=== PATIENT | female | born 1940 | race Caucasian/White ===

== ENCOUNTER → 2024-06-13 15:56 | Outpatient (REF) | payer MEDICARE, OTHER, SELFPAY | LOC: RAD 15:56 | PROVIDERS: ATTENDING PHYSICIAN Student in an Organized Health Care Education/Training Program | DX: M79.671 Pain in right foot (principal) | CPT/HCPCS: 73630 ==

== ENCOUNTER → 2024-08-27 12:36 | Outpatient (REF) | payer MEDICARE, OTHER, SELFPAY | LOC: RCS 12:36 | PROVIDERS: ATTENDING PHYSICIAN Nurse Practitioner Gerontology; FAMILY PHYSICIAN Student in an Organized Health Care Education/Training Program | DX: I35.0 Nonrheumatic aortic (valve) stenosis (principal) | CPT/HCPCS: 93306 ==

== ENCOUNTER 2024-09-19 16:52 | Emergency (ER) | payer MEDICARE, OTHER, SELFPAY ==
[2024-09-19 16:53] VITALS: BMI 25.4
[2024-09-19 16:55] VITALS: BP 155/90
[2024-09-19 17:00] VITALS: BP 147/88
--- NOTE | 2024-09-19 17:18 | ED.GENMED ---
History of Present Illness
General
Chief Complaint: Fall
Source: patient and family (daughter)
Exam Limitations: none
Time Seen by Provider: 09/19/24 16:59
Nursing documentation reviewed up to this point in time: agreed with
History of Present Illness
History of Present Illness:
The patient is a pleasant 83-year-old female the past medical history of A-fib on Rajni, who lost her footing in the bathroom, fell backwards, and hit her head on the back of the door. There was no loss of consciousness. Patient remembers
falling. Family denies nausea and vomiting. They report she is at her normal baseline. They report that she has had cognitive decline for a long time but there have been no acute illnesses or concerns at they have. Her daughter is at the bedside
and reports that she is her evp business development and walked her to the bathroom but had been waiting outside for her to toilet herself and wash her hands. Patient complains of mild pain at the back of her head. She denies any significant pain. She denies
weakness and numbness of the arms and legs. Family reports that she was able to ambulate after the fall.
Past History
Past History
ED Past Medical History: Asthma, CAD, GERD, HTN, Hypercholesterolemia, NIDDM and Other (TIA's , Schatzki's ring)
ED Past Surgical History: Appendectomy, Cardiac (Stents X2) and Orthopedic (Rotatro cuff repair,)
Social History
Tobacco: Non-smoker
Alcohol: Daily (Wine 2 glasses)
Drug: None
Personal:
Living: with family
Employment: Other
Family History
Family History: Unable to obtain
Review of Systems
Review of Systems
Allergies reviewed?: Yes
Other source history: family
All Other Systems: ROS reviewed and negative except as documented in HPI and ROS
Constitutional: Reports no symptoms
EENT: Reports no symptoms
Respiratory: Reports no symptoms
Cardiac: Reports no symptoms
ABD/GI: Reports no symptoms
: Reports no symptoms
Musculoskeletal: Reports no symptoms
Skin: Reports no symptoms
Neurological: Reports headache
Endocrine: Reports no symptoms
Hematologic/Lymphatic: Reports no symptoms
Psychiatric: Reports no symptoms
Phy Exam
Physical Exam
Physical Exam:
Physical Exam
General: no apparent distress, not acutely ill. Fully awake, alert. Mild typical scalp tenderness. I cannot palpate any hematoma on scalp
Neck: supple. Nontender
Heart: s1/s2 regular rate and rhythm, no chest wall tenderness
Lungs: no acute respiratory distress. clear bilaterally. No vertebral spine tenderness
Abdomen: Soft, nontender
Neuro: alert and oriented. no focal neurological deficits
Skin: no rash
Psychiatric: well kept. interactive and cooperative
Extremities: no edema. no calf tenderness. negative homans. good distal pulses
Course
Orders/Labs/Results
Orders:
Orders
09/19/24 17:19
CT Cervical Spine W/o Iv Contr Urgent
Comment:
Reason For Exam: fall, pain at base of head
CT Head W/o Iv Contrast Urgent
Comment:
Reason For Exam: hit head
Vital Signs
Initial and Last Documented VS:
Initial Vital Signs
BP
155/90
09/19/24 16:55
Last Documented Vital Signs
Temp Pulse Resp BP Pulse Ox
98.3 F 89 18 147/88 93
09/19/24 16:57 09/19/24 16:57 09/19/24 16:57 09/19/24 17:00 09/19/24 17:15
MDM/Problems Addressed
Differential Diagnosis Includes:
Subdural hematoma, closed head injury, scalp contusion
MDM/Problems Addressed:
Patient presents with mild acute headache after a trip and fall and head strike
Chronic conditions affecting care:
Given patient has a history of A-fib is on blood thinners, she is at increased risk of stroke
Chronic conditions affecting care: Arrhythmia
Acute Exacerbation and/or Progression of Chronic Illness: Arrhythmia
*Pulse Oximetry
Patient hypoxic: no
*EKG
Interpreted by ED Provider?: NA
*Quality Improvement Manager Interpretation
Rate: Quality Improvement Manager- N/A
*Critical Care Note
Total Time (30-74mins, 75-104mins- exclusive of procedures): Not Applicable
Data Reviewed
Review of Other/Old Records Reveals: Discharge Summary (Discharge summary reviewed from hospitalist from 2019 when patient was admitted for chronic A-fib)
Source: patient and family ( and daughter who are at the bedside)
ED Attending Note
-
Portions of this chart may have been created with voice recognition software.� Occasional wrong word or��sound alike� substitutions may have occurred due to the inherent limitations of voice recognition software.
Discharge Plan
Departure
Prescriptions:
No Action
paroxetine HCl 20 MG tablet
20 mg PO DAILY
atorvastatin 40 MG tablet
80 mg PO HS
nitroglycerin 0.4 MG tablet, sublingual
0.4 mg sublingual [id number] PRN (Reason: chest pain)
pantoprazole 40 MG tablet,delayed release (DR/EC)
20 mg PO DAILY
calcium carbonate-vitamin D3 [Oyster Shell Calcium-Vit D3] 500 MG tablet
1 tab PO BID
apixaban [Eliquis] 5 MG tablet
5 mg PO BID Qty: 60 0RF
ipratropium-albuterol 3 ML solution for nebulization
3 ml inhalation R Q6HPRN PRN (Reason: sob/wheeze)
acetaminophen [Tylenol Extra Strength] 500 MG tablet
1,000 mg PO Q6HPRN PRN (Reason: mild pain)
polyvinyl alcohol-povidon(PF) [Refresh Classic (PF)] 10 DROPS dropperette
1 drops BOTH EYES DAILYPRN PRN (Reason: dry eyes/irritation)
metoprolol succinate 50 MG tablet extended release 24 hr
50 mg PO HS Qty: 30 0RF
thiamine HCl (vitamin B1) 100 MG tablet
100 mg PO BID 0RF
furosemide 80 MG tablet
80 mg PO DAILY Qty: 30 0RF
folic acid 1 MG tablet
1 mg PO DAILY 0RF
diltiazem HCl [Cardizem CD] 360 MG capsule,extended release 24hr
360 mg PO DAILY Qty: 30 0RF
budesonide [Pulmicort] 0.5 MG/2 ML suspension for nebulization
0.5 mg inhalation BID
albuterol sulfate 5 MG/ML solution for nebulization
2.5 mg inhalation BID
zhuaklib-lwt-jvcm-FA-vit K-lut [Centrum Silver Women] 1 EACH tablet
1 ea PO DAILY
ipratropium bromide 1 SPRAY spray,non-aerosol
2 spray intranasal TID
cefuroxime axetil 500 MG tablet
500 mg PO BID Qty: 20 0RF
Referrals:
Ivan Anton DO [Family Provider] -
Interventions
Interventions:
*Risk Screen - Suicide Last Done: 09/19/24 16:57
*General Assessment Last Done: 09/19/24 16:57
*Neglect/Abuse Screening Last Done: 09/19/24 16:57
ED- Fall Risk Assessment Last Done: 09/19/24 17:24
*ED COVID-19 Vaccine History Last Done: 09/19/24 16:57
ED-Musculoskeletal Assessment Last Done: 09/19/24 16:57
ED- Neurological Assessment Last Done: 09/19/24 16:57
ED-Skin Assessment Last Done: 09/19/24 16:57
Discharge Date and Time
Print Language: [place]
[2024-09-19 18:00] VITALS: BP 118/82
[2024-09-19 19:00] VITALS: BP 109/81
--- NOTE | 2024-09-19 20:54 | ED.GENMED ---
History of Present Illness
General
Chief Complaint: Fall
Source: patient and family
Exam Limitations: none
Time Seen by Provider: 09/19/24 16:59
Nursing documentation reviewed up to this point in time: agreed with
History of Present Illness
History of Present Illness:
Please see my note from same visit. I open this chart to document my disposition, which was discharging the patient
Past History
Past History
ED Past Medical History: Asthma, CAD, GERD, HTN, Hypercholesterolemia, NIDDM and Other (TIA's , Schatzki's ring)
ED Past Surgical History: Appendectomy, Cardiac (Stents X2) and Orthopedic (Rotatro cuff repair,)
Social History
Tobacco: Non-smoker
Alcohol: Daily (Wine 2 glasses)
Drug: None
Personal:
Living: with family
Employment: Other
Family History
Family History: Unable to obtain
Review of Systems
Review of Systems
Allergies reviewed?: Yes
All Other Systems: Not applicable
Phy Exam
Physical Exam
Physical Exam:
Very well and comfortable appearing
Course
Orders/Labs/Results
Orders:
Orders
09/19/24 17:19
CT Cervical Spine W/o Iv Contr Urgent
Comment:
Reason For Exam: fall, pain at base of head
CT Head W/o Iv Contrast Urgent
Comment:
Reason For Exam: hit head
Vital Signs
Initial and Last Documented VS:
Initial Vital Signs
BP
155/90
09/19/24 16:55
Last Documented Vital Signs
Temp Pulse Resp BP Pulse Ox
98.3 F 79 18 110/73 99
09/19/24 16:57 09/19/24 21:00 09/19/24 21:00 09/19/24 20:58 09/19/24 21:00
*Radiology
Radiology exam reviewed: radiology read reviewed
*Pulse Oximetry
Patient hypoxic: no
*Critical Care Note
Total Time (30-74mins, 75-104mins- exclusive of procedures): Not Applicable
Update Note
Update Note:
Patient remains comfortable and well for hours without any significant headache, nausea or dizziness.
ED Attending Note
-
Portions of this chart may have been created with voice recognition software.� Occasional wrong word or��sound alike� substitutions may have occurred due to the inherent limitations of voice recognition software.
Discharge Plan
Departure
Patient Disposition: Home (Routine Discharge)
Date of Disposition: 09/19/24
Time of Disposition: 20:53
Patient with high blood pressure during this ER visit?: No
Condition: Good
Covid-19: Not Applicable
Discharge Problem:
Closed head injury
Instructions: Head Injury in Adults (DC)
Prescriptions:
No Action
paroxetine HCl 20 MG tablet
20 mg PO DAILY
atorvastatin 40 MG tablet
80 mg PO HS
nitroglycerin 0.4 MG tablet, sublingual
0.4 mg sublingual [id number] PRN (Reason: chest pain)
pantoprazole 40 MG tablet,delayed release (DR/EC)
20 mg PO DAILY
calcium carbonate-vitamin D3 [Oyster Shell Calcium-Vit D3] 500 MG tablet
1 tab PO BID
apixaban [Eliquis] 5 MG tablet
5 mg PO BID Qty: 60 0RF
ipratropium-albuterol 3 ML solution for nebulization
3 ml inhalation R Q6HPRN PRN (Reason: sob/wheeze)
acetaminophen [Tylenol Extra Strength] 500 MG tablet
1,000 mg PO Q6HPRN PRN (Reason: mild pain)
polyvinyl alcohol-povidon(PF) [Refresh Classic (PF)] 10 DROPS dropperette
1 drops BOTH EYES DAILYPRN PRN (Reason: dry eyes/irritation)
metoprolol succinate 50 MG tablet extended release 24 hr
50 mg PO HS Qty: 30 0RF
thiamine HCl (vitamin B1) 100 MG tablet
100 mg PO BID 0RF
furosemide 80 MG tablet
80 mg PO DAILY Qty: 30 0RF
folic acid 1 MG tablet
1 mg PO DAILY 0RF
diltiazem HCl [Cardizem CD] 360 MG capsule,extended release 24hr
360 mg PO DAILY Qty: 30 0RF
budesonide [Pulmicort] 0.5 MG/2 ML suspension for nebulization
0.5 mg inhalation BID
albuterol sulfate 5 MG/ML solution for nebulization
2.5 mg inhalation BID
mwpxpumc-qnc-lhvi-FA-vit K-lut [Centrum Silver Women] 1 EACH tablet
1 ea PO DAILY
ipratropium bromide 1 SPRAY spray,non-aerosol
2 spray intranasal TID
cefuroxime axetil 500 MG tablet
500 mg PO BID Qty: 20 0RF
Referrals:
Ivan Anton DO [Family Provider] -
Activity Restrictions/Additional Instructions:
Chloe can sleep tonight because it has been many hours since she hit her head. Return for any severe headache or vomiting.
Interventions
Interventions:
*Risk Screen - Suicide Last Done: 09/19/24 16:57
*General Assessment Last Done: 09/19/24 16:57
*Neglect/Abuse Screening Last Done: 09/19/24 16:57
ED- Fall Risk Assessment Last Done: 09/19/24 17:24
*ED COVID-19 Vaccine History Last Done: 09/19/24 16:57
*Nursing Disposition Last Done: 09/19/24 21:05
ED-Musculoskeletal Assessment Last Done: 09/19/24 16:57
ED- Neurological Assessment Last Done: 09/19/24 16:57
ED-Skin Assessment Last Done: 09/19/24 16:57
Discharge Date and Time
Discharge Date/Time: 09/19/24 21:06
Print Language: CROATIAN
[2024-09-19 20:58] VITALS: BP 110/73
== END 2024-09-19 21:06 | disposition home or self-care (01) ==
LOC: EMR 16:52
PROVIDERS: EMERGENCY PHYSICIAN Emergency Medicine; FAMILY PHYSICIAN Student in an Organized Health Care Education/Training Program
DX: S09.90XA Unspecified injury of head, initial encounter (principal); W01.0XXA Fall on same level from slipping, tripping and stumbling without subsequent striking against object, initial encounter; I48.91 Unspecified atrial fibrillation; Z79.01 Long term (current) use of anticoagulants
CPT/HCPCS: 99284; 70450; 72125

== ENCOUNTER → 2024-10-08 11:14 | Outpatient (REF) | payer MEDICARE, OTHER, SELFPAY | LOC: RAD 11:14 | PROVIDERS: ATTENDING PHYSICIAN Student in an Organized Health Care Education/Training Program | DX: R07.81 Pleurodynia (principal) | CPT/HCPCS: 71046 ==

== ENCOUNTER 2024-11-11 22:15 | Inpatient (IN) | payer MEDICARE, OTHER, SELFPAY ==
[2024-11-11] VITALS (16 sets, daily range): BP systolic 100–148; BP diastolic 52–107; BMI 20.5
--- NOTE | 2024-11-11 16:13 | ED.GENMED ---
History of Present Illness
General
Chief Complaint: Esophageal Problem
Source: patient and family
Exam Limitations: none
Time Seen by Provider: 11/11/24 16:06
History of Present Illness
History of Present Illness:
84-year-old female complaining of a foreign body sensation in her throat x 1.5 days. Has not been able to drink liquids or solids since then. Spitting saliva. No pain. No shortness of breath. History of same. Typically passes on its own.
Past History
Past History
ED Past Medical History: Asthma, CAD, GERD, HTN, Hypercholesterolemia, NIDDM and Other (TIA's , Schatzki's ring)
ED Past Surgical History: Appendectomy, Cardiac (Stents X2) and Orthopedic (Rotatro cuff repair,)
Social History
Tobacco: Non-smoker
Alcohol: Daily (Wine 2 glasses)
Drug: None
Personal:
Living: with family
Employment: Other
Family History
Family History: Unable to obtain
Review of Systems
Review of Systems
All Other Systems: Not applicable
Constitutional: Denies fever
Respiratory: Reports no symptoms
Cardiac: Reports no symptoms
Phy Exam
Physical Exam
Physical Exam:
GENERAL: Alert and oriented in no apparent distress
EYE: Orbits normal.
NECK: Supple. No drooling or stridor. Speech normal.
CARDIAC: Mildly irregular
LUNGS: Clear breath sounds,normal
ABDOMEN: Soft, without focal tenderness or distention
NEUROLOGICAL: Alert and oriented , grossly non-focal
SKIN: Warm and dry, no rash or lesion, no discoloration, skin intact.
MUSCULOSKELETAL: No edema,no deformity.Good color
PSYCH: Normal and appropriate interaction.
Course
Orders/Labs/Results
Orders:
Orders
11/11/24 16:12
IV Insert/Care/Rem.- Treatment PRN
0.9% Sodium Chloride 500 ml [Nss] 500 ml IV BOLUS
11/11/24 16:18
Glucagon [GlucaGen] 1 mg IV NOW STA
11/11/24 17:59
Dexamethasone Sod Phosphate [Decadron] 20 mg .ROUTE .STK-MED ONE
Lidocaine HCl/Pf [Xylocaine-Mpf 1% Vial] 50 mg .ROUTE .STK-MED ONE
Ondansetron Injectable [Zofran] 4 mg .ROUTE .STK-MED ONE
Propofol [Diprivan] 20 ml .ROUTE .STK-MED
Rocuronium Escalon [Rocuronium] 50 mg .ROUTE .STK-MED ONE
Sugammadex Sodium [Bridion] 200 mg .ROUTE .STK-MED ONE
11/11/24 18:00
Phenylephrine HCl/0.9% NaCl [Gus-Synephrine] 1,000 mcg .ROUTE .STK-MED ONE
Succinylcholine Chloride [Succinylcholine] 200 mg .ROUTE .STK-MED ONE
11/11/24 18:19
NORepinephrine 4 MG/250 ML [Levophed] 4 mg in 250 ml .ROUTE .STK-MED
11/11/24 18:51
Esmolol [Brevibloc] 100 mg .ROUTE .STK-MED ONE
11/11/24 16:12
11/11/24 16:12
Vital Signs
Initial and Last Documented VS:
Initial Vital Signs
Temp Pulse Resp BP Pulse Ox
97.7 F 79 18 114/57 96
11/11/24 13:33 11/11/24 13:33 11/11/24 13:33 11/11/24 13:33 11/11/24 13:33
Last Documented Vital Signs
Temp Pulse Resp BP Pulse Ox
99.2 F 121 14 116/59 99
11/11/24 19:18 11/11/24 20:00 11/11/24 20:00 11/11/24 20:00 11/11/24 20:00
MDM/Problems Addressed
Differential Diagnosis Includes:
Patient describing esophageal foreign body. Does not appear in any distress but does have a vomit bag where she is spitting her saliva while in the waiting room. GI consulted
*Critical Care Note
Total Time (30-74mins, 75-104mins- exclusive of procedures): Not Applicable
Data Reviewed
Review of Other/Old Records Reveals: Labs, Records and Testing
ED Attending Note
-
Portions of this chart may have been created with voice recognition software.� Occasional wrong word or��sound alike� substitutions may have occurred due to the inherent limitations of voice recognition software.
Discharge Plan
Departure
Patient Disposition: Admit
Date of Disposition: 11/11/24
Time of Disposition: 18:06
Presentation/result/management discussed w/ accepting MD/DO: Gastroenterology
Discharge Problem:
Esophageal foreign body
Interventions
Interventions:
*Risk Screen - Suicide Last Done: 11/11/24 13:33
*General Assessment Last Done: 11/11/24 13:33
*Neglect/Abuse Screening Last Done: 11/11/24 13:33
ED- Fall Risk Assessment Last Done: 11/11/24 17:41
*ED COVID-19 Vaccine History Last Done: 11/11/24 17:41
*Nursing Disposition Last Done: 11/11/24 17:41
EA-Diotav-Zuslgtsmkl Assessment Last Done: 11/11/24 17:41
ED-EENT Assessment Last Done: 11/11/24 17:41
Discharge Date and Time
Discharge Date/Time: 11/11/24 19:04
[2024-11-11] MEDS: NSS 500 IV (17:11)
[2024-11-11] MEDS: GlucaGen 1 MG IV (17:12)
--- NOTE | 2024-11-11 19:04 | CON.GI ---
Consultation
-
Date/Time Consultation Requested: 11/11/24 5:00pm
Date/Time Consultation Performed: 11/11/24 7:00 pm
Requesting Provider: Oscar Hendrix
Performing Provider: Steven Chang
Reason for Consultation: Food impaction
Medical History
Chief Complaint / HPI
Chief Complaint: Food impaction
History of Present Illness:
84yo female presents after eating chicken nuggets several days ago. She has been spitting saliva and unable to eat since then. Her daughter tried mashed potatoes, apple sauce. She has history of Schatzki's ring that was dilated, last in 2013. I
recently saw her as televisit to discuss her swallowing problems. She has been eating puree food and has spit up meat and bread. I discussed repeat EGD for dilation but she was concerned about her anesthesia risk given her heart disease. We
decided to continue puree diet and nutritional supplements.
Past Medical History
Past Medical History: Arrhythmias (afib), CHF, HTN and Valvular Disease (severe )
Past Surgical History: Appendectomy and Cardiac (stent)
Social History
Tobacco: Non-Smoker
Alcohol: None
Family History
Family History: Reviewed & Not Pertinent
Allergies / Home Medications
Allergy/AdvReac Type Severity Reaction Status Date / Time
cat dander Allergy ITCHY EYES Verified 09/21/22 11:56
Sulfa (Sulfonamide Allergy Rash Verified 09/21/22 11:56
Antibiotics)
sulfisoxazole Allergy Rash Verified 09/21/22 11:56
trimethoprim Allergy Rash Verified 09/21/22 11:56
HAYFEVER Allergy Itching Uncoded 09/21/22 11:56
�Medication �Instructions �Recorded
paroxetine HCl 20 mg tablet 20 mg PO DAILY Mental 07/27/10
Health/Anxiety
atorvastatin 40 mg tablet 80 mg PO HS High cholesterol 05/31/12
nitroglycerin 0.4 mg sublingual 0.4 mg sublingual [id number] PRN 05/29/17
tablet chest pain
calcium 500 mg (as 1 tab PO BID Supplement 06/13/18
carbonate)-vitamin D3 5 mcg (200
unit) tablet (Oyster Shell
Calcium-Vitamin D3)
pantoprazole 40 mg tablet,delayed 20 mg PO DAILY Gastrointestinal 06/13/18
release issue
apixaban 5 mg tablet (Eliquis) 5 mg PO BID ##60 06/19/18
acetaminophen 500 mg tablet 1,000 mg PO Q6HPRN PRN mild pain 10/28/19
(Tylenol Extra Strength)
ipratropium 0.5 mg-albuterol 3 mg 3 ml inhalation R Q6HPRN PRN 10/28/19
(2.5 mg base)/3 mL nebulization sob/wheeze
soln
polyvinyl alcohol-povidone (PF) 1 drops BOTH EYES DAILYPRN PRN dry 10/28/19
1.4 %-0.6 % eye drops in a eyes/irritation
dropperette (Refresh Classic (PF))
diltiazem HCl 360 mg 360 mg PO DAILY ##30 11/09/19
capsule,extended release 24 hr
(Cardizem CD)
folic acid 1 mg tablet 1 mg PO DAILY 11/09/19
furosemide 80 mg tablet 80 mg PO DAILY #30 tabs 11/09/19
metoprolol succinate 50 mg 50 mg PO HS #30 tabs 11/09/19
tablet,extended release 24 hr
thiamine HCl (vitamin B1) 100 mg 100 mg PO BID 11/09/19
tablet
albuterol sulfate 5 mg/mL(0.5 %) 2.5 mg inhalation BID 09/03/20
solution for nebulization Lung/breathing issues
budesonide 0.5 mg/2 mL suspension 0.5 mg inhalation BID 09/03/20
for nebulization (Pulmicort) Lung/breathing issues
bguzwfzt-jrrh-tila 8 mg-folic 400 1 ea PO DAILY Supplement 09/03/20
mcg-K 50 mcg-lutein 300 mcg tablet
(Centrum Silver Women)
ipratropium bromide 42 mcg (0.06 2 spray intranasal TID Allergies 09/04/20
%) nasal spray
cefuroxime axetil 500 mg tablet 500 mg PO BID #20 tabs 09/06/20
Review of Systems
-
All other systems: A 12 pt ROS was Negative except as stated above in HPI
Vital Signs
Temp Pulse Resp BP Pulse Ox
97.6 F 86 16 112/52 95
11/11/24 16:00 11/11/24 16:00 11/11/24 16:00 11/11/24 16:00 11/11/24 16:00
Physical Exam
Exam
General: Other (spitting into emesis bag)
HEENT: Normocephalic and Atraumatic
Respiratory: Non Labored Respirations
GI: Soft and Non Tender
Skin: Warm and Dry
Psych: Calm
Results
Diagnostic Image Results:
Prior GI Procedures:
EGD:
Colonoscopy:
Assessment / Plan
-
Impression:
Food impaction
Afib on Eliquis, took dose today
Severe
Hx schatzki's ring
CAD
Recommendations:
EGD to remove food impaction
Given recent Eliquis, I will not dilate her esophagus
-
-
Thank you for consultation and allowing me to participate in the patient's care. Please call the storage management consultant GI physician during the after hours with any questions or concerns.
--- NOTE | 2024-11-11 21:35 | W.PN.UPDATE ---
Update Note
Progress Note Update
CBC patient seen in conjunction with MAIDA. I concur with the history and physical. I agree with the assessment and plan unless stated otherwise.
This is an 84-year-old female with past medical history significant for permanent atrial fibrillation on anticoagulation, aortic stenosis, CHF with preserved EF, COPD, GERD, hypertension presents to the emergency department with impacted esophageal
bolus and had a EGD status post removal of food impaction. During EGD the patient went into more rapid atrial fibrillation. Giving a small dose of esmolol in the PACU without much improvement. She is currently running at around 120s.
She denies any sensation of palpitations chest pain or shortness of breath. She reported that she took her usual medications this morning prior to coming to the emergency department.
When I saw her she was afebrile, blood pressure was 116/59 with a pulse of 121 satting 99% on 2 L. ECG with A-fib in the 120s. No labs pending at this time.
Request to monitor the patient overnight and to obtain some rate control.
Assessment and plan
Uncontrolled atrial fibrillation in patient with permanent A-fib on metoprolol and Cardizem, has aortic stenosis as well as CHF with preserved EF.
Admit to IVU
Start low-dose Cardizem drip and titrate to maintain heart rate less than 110
Continue Eliquis
Continue metoprolol succinate
Check routine labs
Cardiology consult
Code status - full code
--- NOTE | 2024-11-11 22:19 | PTCARENOTE ---
Pt's A line removed as per previous RN. Pressure applied x 5mins, no signs of bleeding. dressing gauge and tape. pt tolerated well.
[2024-11-11] MEDS: CARDIZEM 125 IV (22:59)
[2024-11-11 23:06] LABS: Glucose - Point of Care 114 mg/dl (70-99)
[2024-11-12] VITALS (19 sets, daily range): BP systolic 107–161; BP diastolic 56–111; PULSE 41–136; O2SAT 95–96; BMI 20.5
--- NOTE | 2024-11-12 01:33 | PTCARENOTE ---
Pt rec'd from GI lab without tele monitor. Pt placed on IVU's telemetry with afib noted rates 90-120. Cardizem gtt started shortly after arrival at
5 mg /hr. Drip increased to 10 mg at 0010 after heart rate continued low 100's,afib. Lungs clear on O2 at 2 lit n/c. which pt daughter states she uses at home. Pt also with hx of sleep apnea. pt's daughter states her Mom will only use cpap for
short period then wants it removed.
bed alarm activated after daughter states her Mom has had recent fall with rib fx and 'owns'. Pt upon arrival to floor is cooperative,calm.
--- NOTE | 2024-11-12 01:40 | PTCARENOTE ---
Two other things to note per daughter:
Pt has had problems getting Cardizem capsule down since it can't be crushed. Shes not sure if she is getting med every time. Also daughter states she holds pt's Lopressor if b/p is not above 135 otherwise she notes that her b/p will drop.
[2024-11-12 06:17] LABS: ALT (SGPT) 19 U/L (0-35); AST (SGOT) 24 U/L (14-36); Albumin 3.4 g/dl (3.5-5.0); Alkaline Phosphatase 124 U/L (38-126); Blood Urea Nitrogen 20 mg/dl (7-17); Calcium 9.2 mg/dl (8.4-10.2); Carbon Dioxide 32 mmol/L (22-30); Chloride 101 mmol/L (98-107); Estimated Creatinine Clearance 60 ml/min; Glucose 143 mg/dl (70-99); Magnesium 2.1 mg/dl (1.6-2.3); Potassium 3.8 mmol/L (3.5-5.1); Sodium 145 mmol/L (135-145); Total Protein 6.1 g/dl (6.3-8.2); eGFR > 60.00
[2024-11-12 06:19] LABS: % Basophils 0.2 % (0-2); % Immature Granulocytes 0.6 % (0-0.5); % Lymphocytes 13.4 % (20.5-51.1); % Monocytes 4.5 % (1.7-9.3); % Neutrophils 81.3 % (42.2-75.2); Absolute Lymphocytes 0.9 10^3/uL (1.2-3.4); Absolute Monocytes 0.3 10^3/uL (0.1-0.6); Absolute Neutrophils 5.2 10^3/uL (1.4-6.5); Hemoglobin 12.6 g/dL (12.0-16.0); Mean Corp Hgb Conc. 32.3 g/dL (33.0-37.0); Mean Corpuscular Hgb 34.3 pg (27.0-31.0); Mean Corpuscular Volume 106.3 fL (81.0-99.0); Mean Platelet Volume 9.8 fL (7.4-10.4); Nucleated Red Blood Cells % 0 %; Platelet Count 352 10^3/uL (130-400); Red Blood Cell Count 3.67 10^6/uL (4.20-5.40); Red Cell Dist. Width 15.6 % (11.5-14.5); White Blood Cell Count 6.4 10^3/uL (4.8-10.8)
[2024-11-12 07:08] LABS: TSH 0.42 uIU/ml (0.47-4.68)
--- NOTE | 2024-11-12 07:48 | CON.CAR ---
Addendum entered and electronically signed by Hector Rendon MD 11/12/24 11:09:
Patient seen and examined in collaboration with ACCOUNTS RECEIVABLE PROCESSOR; agree with below. 84-year-old female with coronary artery disease, permanent atrial fibrillation (on Eliquis), chronic HFpEF, severe aortic stenosis, moderate mitral stenosis, hypertension, and
dyslipidemia who developed atrial fibrillation with RVR during EGD for removal of food impaction.
-Patient was placed on a Cardizem drip; transition to PO rate-controlling medications that can be crushed.
-Recommend metoprolol tartrate 12.5 mg PO BID and Cardizem 60 mg PO QID.
-personnel monitor; will follow.
Original Note:
Consultation
Consultation Request
Date/Time Consultation Requested: 11/11/2024 22:45
Date/Time Consultation Performed: 11/12/2024 07:45
Requesting Provider: MAIDA Peralta
Performing Provider: MAIDA Grijalva for Dr. Rendon
Reason for Consultation: Atrial fibrillation with RVR
Medical History
-
Chief Complaint: Unable to swallow
History of Present Illness:
Chloe Tirado is an 84 year old female (known to Dr. Jorge, her primary entry level account representative) with coronary artery disease (RCA '05 & LAD '12), permanent atrial fibrillation, CVA (2018), HFpEF, hypertension, severe aortic stenosis, moderate mitral
stenosis, and dyslipidemia presents with impacted esophageal bolus. She complained of the sensation of food being stuck in her throat for more than 24 hours. She was unable to swallow anything including saliva. She had an EGD for removal of her
food impaction. During her procedure, she went into atrial fibrillation with rapid ventricular response. She was given a dose of esmolol in PACU without significant improvement in her heart rate. She was started on a diltiazem drip.
Past Medical History
Past Medical History: Arrhythmias (permanent atrial fibrillation [on apixaban]), CAD, CHF, CVA, GERD, HTN, NIDDM and Valvular Disease (Severe aortic stenosis, moderate mitral stenosis)
Past Surgical History: Appendectomy, Gynecological, Orthopedic and Tonsilectomy
Social History
Tobacco: Non-Smoker
Drug: None
Employment: Retired
Family History
Family History: Reviewed & Not Pertinent
Allergies / Home Medications
Allergy/AdvReac Type Severity Reaction Status Date / Time
cat dander Allergy ITCHY EYES Verified 09/21/22 11:56
house dust Allergy ITCHING/SNE Verified 11/11/24 22:22
EZING
mold Allergy ITCHING/SNE Verified 11/11/24 22:22
EZING
pollen extracts Allergy HAYFEVER-IT Verified 11/11/24 22:13
ALLISON
Sulfa (Sulfonamide Allergy Rash Verified 09/21/22 11:56
Antibiotics)
sulfisoxazole Allergy Rash Verified 09/21/22 11:56
trimethoprim Allergy Rash Verified 09/21/22 11:56
�Medication �Instructions �Recorded �Confirmed �Type
paroxetine HCl 20 mg tablet 20 mg PO DAILY Mental 07/27/10 11/11/24 History
Health/Anxiety
atorvastatin 40 mg tablet 80 mg PO HS High cholesterol 05/31/12 11/11/24 History
nitroglycerin 0.4 mg sublingual 0.4 mg sublingual [id number] PRN 05/29/17 11/11/24 History
tablet chest pain
calcium 500 mg (as 1 tab PO BID Supplement 06/13/18 11/11/24 History
carbonate)-vitamin D3 5 mcg (200
unit) tablet (Oyster Shell
Calcium-Vitamin D3)
pantoprazole 40 mg tablet,delayed 20 mg PO DAILY Gastrointestinal 06/13/18 11/11/24 History
release issue
acetaminophen 500 mg tablet 1,000 mg PO Q6HPRN PRN mild pain 10/28/19 11/11/24 History
(Tylenol Extra Strength)
ipratropium 0.5 mg-albuterol 3 mg 3 ml inhalation R Q6HPRN PRN 10/28/19 11/11/24 History
(2.5 mg base)/3 mL nebulization sob/wheeze
soln
polyvinyl alcohol-povidone (PF) 1 drops BOTH EYES DAILYPRN PRN dry 10/28/19 11/11/24 History
1.4 %-0.6 % eye drops in a eyes/irritation
dropperette (Refresh Classic (PF))
diltiazem HCl 360 mg 360 mg PO DAILY ##30 11/09/19 11/11/24 Rx
capsule,extended release 24 hr
(Cardizem CD)
folic acid 1 mg tablet 1 mg PO DAILY 11/09/19 11/11/24 Rx
furosemide 80 mg tablet 80 mg PO DAILY #30 tabs 11/09/19 11/11/24 Rx
albuterol sulfate 5 mg/mL(0.5 %) 2.5 mg inhalation BID 09/03/20 11/11/24 History
solution for nebulization Lung/breathing issues
budesonide 0.5 mg/2 mL suspension 0.5 mg inhalation BID 09/03/20 11/11/24 History
for nebulization (Pulmicort) Lung/breathing issues
wvemnuew-rakv-lxpf 8 mg-folic 400 1 ea PO DAILY Supplement 09/03/20 11/11/24 History
mcg-K 50 mcg-lutein 300 mcg tablet
(Centrum Silver Women)
ipratropium bromide 42 mcg (0.06 2 spray intranasal TID Allergies 09/04/20 11/11/24 History
%) nasal spray
apixaban 5 mg tablet (Eliquis) 2.5 mg PO BID 11/11/24 11/11/24 History
metformin 750 mg tablet,extended 750 mg PO DAILY 11/11/24 11/11/24 History
release 24 hr
metoprolol succinate 25 mg 25 mg PO DAILY 11/11/24 11/11/24 History
tablet,extended release 24 hr
Review of Systems
-
History Source: Patient
All other systems: Negative unless noted
Constitutional: No Symptoms
EENT: Sore Throat and Other (Difficulty swallowing)
Respiratory: No Symptoms
Cardiac: No Symptoms
Abdomen/GI: No Symptoms
: No Symptoms
Musculoskeletal: No Symptoms
Skin: No Symptoms
Neurological: No Symptoms
Endocrine: No Symptoms
Hematologic/Lymphatic: No Symptoms
Physical Exam
Vital Signs
Temp Pulse Resp BP Pulse Ox
98.0 F 64 18 140/68 96
11/11/24 22:56 11/12/24 05:45 11/11/24 22:56 11/12/24 04:00 11/11/24 22:56
Lab Results
11/12/24 05:14
11/12/24 05:14
Physical Exam
General: Well Developed, Well Nourished and No Apparent Distress
HEENT: Normocephalic, Anicteric and Moist Mucous Membranes
Respiratory: Clear and Non Labored Respirations
Cardiac: S1/S2, Irregular Rhythm and Murmur (IV/ SRINI)
Breast: Deferred by me
GI: Non Tender, Non Distended and Normal Bowel Sounds
Rectal: Deferred by Provider
Genito-urinary: No Costovertebral Tender
Musculoskeletal: No Clubbing, No Cyanosis and No Edema
Skin: Warm and Dry
Neuro: Alert
Hematologic/Lymphatic: No Lymphadenopathy
Psych: Calm
Impression / Plan
-
IMPRESSION/PLAN: 84F with coronary artery disease (RCA '05 & LAD '12), permanent atrial fibrillation, CVA (2018), HFpEF, hypertension, severe aortic stenosis, moderate mitral stenosis, and dyslipidemia presents with impacted esophageal bolus.
Outpatient entry level account representative: Dr. Jorge
Atrial fibrillation with rapid ventricular response
-Rates improved on diltiazem at 5 mg/hr, continue given her difficulty swallowing
-Will transition to oral medications when cleared by GI
-Her family crushes her medications at home, metoprolol succinate and Cardizem CD should not be crushed
-Her atrial fibrillation is permanent, no plans to restore sinus rhythm
-Oral Anticoagulation: Apixaban 2.5 mg twice daily (age 84, weight <60 kg)
-[id number]: score 8 (Heart failure, age 75 or more, Diabetes Mellitus, prior Stroke/TIA, Vascular disease, female gender)
Food impaction, lower third of esophagus, successful removal 11/11/2024
-She reports her throat is still sore and she is having difficulty swallowing, per GI
Coronary artery disease
-Stable with out chest pain
-On single agent apixaban
HFpEF, chronic
-Stable without shortness of breath
-She does not appear volume overloaded, continue medical management
Moderate mitral stenosis with a mean gradient of 9 mmHg.
Severe aortic stenosis (peak 61 mmHg, mean 39 mmHg, DI 0.2, BERENICE 0.6 cmsq), she declined further evaluation in the outpatient setting
Mild aortic regurgitation.
Mild to moderate tricuspid regurgitation.
NIDDM, per primary
--- NOTE | 2024-11-12 08:28 | W.PN.GI.CBS2 ---
Today's Communication / Plan
-
Rate controlled on cardizem gtt overnight
Food impaction removed during EGD yesterday
She probably wasn't getting her cardizem capsule last couple days, per daughter
OK to resume puree diet
I spoke to daughter. She wishes to see how she does on puree diet avoiding meat completely. If having problems still, told her to call to set up OP EGD for dilation of esophagus, which she has had in the past
Will sign off. Please call if needed
Assessment / Plan
-
Impression:
Food impaction
Afib on Eliquis. RVR during EGD to remove food impaction
Severe
Hx schatzki's ring
CAD
Subjective
Subjective
Date of Service: November 12, 2024
Sleeping comfortably in bed. no complaints
Objective
Data Reviewed
Laboratory Data:
Laboratory Results
11/12/24 05:14
11/12/24 05:14
Laboratory Results
Magnesium 2.1 mg/dl (1.6-2.3) 11/12/24 05:14
Total Bilirubin 1.0 mg/dl (0.2-1.3) 11/12/24 05:14
AST 24 U/L (14-36) 11/12/24 05:14
ALT 19 U/L (0-35) 11/12/24 05:14
Alkaline Phosphatase 124 U/L (38-126) 11/12/24 05:14
Vital Signs and I&O:
Vital Signs
Temp Pulse Resp BP Pulse Ox
97.2 F 64 20 140/68 99
11/12/24 08:08 11/12/24 05:45 11/12/24 08:08 11/12/24 04:00 11/12/24 08:08
I&O
11/11/24 11/12/24 11/13/24
06:59 06:59 06:59
Intake Total 200 / 200
Balance 200 / 200
Physical Exam
Physical Exam
GI: Soft and Non Tender
[2024-11-12] MEDS: PULMICORT 0.5 MG INH ×2 (08:38→20:59)
[2024-11-12 09:17] LABS: Glycohemoglobin (HgbA1c) 6.1 % (4.0-5.6)
[2024-11-12 09:28] LABS: Glucose - Point of Care 107 mg/dl (70-99)
[2024-11-12] MEDS: LASIX 80 MG PO (09:47)
[2024-11-12] MEDS: ELIQUIS 2.5 MG PO ×2 (09:47→20:50)
[2024-11-12] MEDS: THERAGRAN 1 TABLET PO (09:48)
--- NOTE | 2024-11-12 09:48 | W.PN.HOSP.TC ---
Today's Communication/Plan
-
Change Cardizem/metoprolol to immediate release
Cardiology consult
PT/OT
Wean down IV Cardizem
Assessment / Plan
Assessment / Plan
Gen-AAOx3, NAD
HEENT-NC, AT, anicteric, clear oral mm
Neck-supple
CV-irregular, tacky, no M, +S1/S2
Lungs-clear B/L
Abd-soft, NT, ND
Ext-no edema
Musculoskeletal-no cyanosis, clubbing
Skin-warm and dry
Neuro-grossly non-focal
Psych-calm, cooperative
Rapid atrial fibrillation -currently on IV Cardizem at 5 mg/h. Can change Cardizem and metoprolol to immediate release to allow pills to be crushed given her dysphagia. Discussed with nursing.
Continue Eliquis. Cardiology consulted.
Food impaction -with history of Schatzki's ring. Was disimpacted 3/3 by GI service. Pur�ed diet ordered. May need outpatient esophageal dilation if problem persists.
Chronic heart failure with preserved EF
Aortic stenosis
COPD without exacerbation
GERD
Essential hypertension -stable.
DM2 without hyperglycemia -was on metformin prior to admission. Hemoglobin A1c 6.1%. Glucose 143 this morning. Continue sliding scale aspart for now.
Hyperlipidemia -atorvastatin.
Full code
PT/OT
Anticipated Discharge: Within 24 hours
Subjective/Interval History
-
Date of Service: November 12, 2024
Patient seen and examined. Some shortness of breath and lightheadedness with exertion.
Objective Data
-
Labs:
Laboratory Results
11/12/24
05:14
WBC 6.4
Hgb 12.6
Hct 39.0
Plt Count 352
Sodium 145
Potassium 3.8
Chloride 101
Carbon Dioxide 32 H
BUN 20 H
Creatinine 0.6
Glucose 143 H
Calcium 9.2
Total Bilirubin 1.0
AST 24
ALT 19
Alkaline Phosphatase 124
Vital Signs:
Vital Signs
Temp Pulse Resp BP Pulse Ox
97.2 F 85 16 140/68 2
11/12/24 08:08 11/12/24 08:39 11/12/24 08:39 11/12/24 04:00 11/12/24 08:39
I&O
11/11/24 11/12/24 11/13/24
06:59 06:59 06:59
Intake Total 200 / 200
Balance 200 / 200
Review of Systems
-
History Source: Patient
All other systems: Reviewed and negative
[2024-11-12] MEDS: PAXIL 20 MG PO (09:49)
[2024-11-12] MEDS: FOLVITE 1 MG PO (09:49)
[2024-11-12] MEDS: OSCAL 500 + D 500 MG PO ×2 (09:49→20:50)
[2024-11-12] MEDS: LOPRESSOR 12.5 MG PO ×2 (10:07→20:50)
[2024-11-12] MEDS: CARDIZEM 90 MG PO (10:07)
--- NOTE | 2024-11-12 11:05 | PTCARENOTE ---
Pt in A-Fib and on card drip@ 5 mg/hr, PO cardizem ordered and given. Pt HR dropped into 30's-50's. cardizem drip turned off. Dr Miner and Mayuri Macias aware. Cardizem po dose reduced by Mayuri.
--- NOTE | 2024-11-12 11:58 | CM ---
Reviewed chart. Met with and Mrs. Crenshaw and her daughter to review discharge plans. Daughter states prior to admission they reside together in a two story home with one step to enter. She has a full flight of steps to get to bedroom/full
bathroom. She has a powder room on the first floor. Daughter states prior to admission she ambulates with a rolling walker. She has a rolling walker, rollator and transfer wheelchair at home. She has a prescription plan and uses [facility]. We reviewed [facility] and they are agreeable to [facility]. We also reviewed SNF/Rehab. and they do not want to consider SNF/Rehab. at this time. Telephone call to [facility] to make the referral. Sent the
referral. Medial work-up in progress. The discharge plan is to return home with her spouse and daughter with [facility] when medically stable.
[2024-11-12 12:59] LABS: Glucose - Point of Care 150 mg/dl (70-99)
[2024-11-12] MEDS: CARDIZEM 60 MG PO (16:56)
[2024-11-12 17:12] LABS: Glucose - Point of Care 121 mg/dl (70-99)
--- NOTE | 2024-11-12 18:10 | PTCARENOTE ---
Pt HR this afternoon 80-90's in A-Fib. Cardizem PO given as ordered. Pt denied dizziness earlier today when her HR was low.
[2024-11-12] MEDS: LIPITOR 80 MG PO (20:51)
--- NOTE | 2024-11-12 21:22 | PTCARENOTE ---
Patient received at change of shift resting in the bed, daughter at bedside. Patient is without complaints at this time. Alert to self only. Bed alarm armed. Afib on the monitor. Call julio within reach. Oxygen saturation 95-97% on 2L NC. Plan of
care discussed. Care ongoing.
[2024-11-12 22:06] LABS: Glucose - Point of Care 128 mg/dl (70-99)
[2024-11-12] MEDS: CARDIZEM PO (23:35)
[2024-11-13 03:53] VITALS: BP 110/72
[2024-11-13 03:55] VITALS: BMI 20.8
[2024-11-13 07:19] VITALS: BP 132/102
[2024-11-13] MEDS: PULMICORT 0.5 MG INH (07:36)
--- NOTE | 2024-11-13 07:37 | W.PN.CD ---
Today's Communication / Plan
-
- Will change Diltiazem from 60 TID to 90 mg BID and continue Metoprolol 12.5 mg BID.
- Eliquis 2.5 mg BID
- Stable for discharge from cardiac stand point.
Impression / Plan
-
IMPRESSION/PLAN: 84F with coronary artery disease (RCA '05 & LAD '12), permanent atrial fibrillation, CVA (2018), HFpEF, hypertension, severe aortic stenosis, moderate mitral stenosis, and dyslipidemia presents with impacted esophageal bolus.
Outpatient building cleaner: Dr. Jorge
Atrial fibrillation with rapid ventricular response
-Rate controlled and persistent now
-Plan for rate control for now rosalinda with severe LA enlargement, moderate MS and severe .
-Rate control - switch Dilt 60 tid to 90 mg BID and continue Metoprolol 12.5 mg BID (for convenience of the family)
-Her family crushes her medications at home, metoprolol succinate and Cardizem CD should not be crushed
-rates are well controlled. Occ slow rates noted but no significant pauses on telemetry.
-Her atrial fibrillation is permanent, no plans to restore sinus rhythm
-Oral Anticoagulation: Apixaban 2.5 mg twice daily (age 84, weight <60 kg)
-[id number]: score 8 (Heart failure, age 75 or more, Diabetes Mellitus, prior Stroke/TIA, Vascular disease, female gender)
Food impaction, lower third of esophagus, successful removal 11/11/2024
-She reports her throat is still sore and she is having difficulty swallowing, per GI
Hypokalemia
-K is improved.
-Keep K > 4.0
Coronary artery disease
-Stable with out chest pain
-On single agent apixaban
HFpEF, chronic
-Stable without shortness of breath
-She does not appear volume overloaded, continue medical management
-ECHO -08/27/24: LVEF 70%, Severe LA enlargement, mitral stenosis and severe
-Conservative management.
Moderate mitral stenosis with a mean gradient of 9 mmHg.
Severe aortic stenosis (peak 61 mmHg, mean 39 mmHg, DI 0.2, BERENICE 0.6 cmsq), she declined further evaluation in the outpatient setting
Mild aortic regurgitation.
Mild to moderate tricuspid regurgitation.
NIDDM, per primary
Physical Exam
Vital Signs/Labs
Vital Signs
Temp Pulse Resp BP Pulse Ox
97.5 F 77 16 110/72 90
11/13/24 07:25 11/13/24 06:00 11/13/24 07:25 11/13/24 03:53 11/13/24 07:25
11/12/24 11/13/24 11/14/24
06:59 06:59 06:59
Actual Weight 54.2 kg 55 kg
11/12/24 05:14
11/12/24 05:14
Magnesium 2.1 mg/dl (1.6-2.3) 11/12/24 05:14
TSH 0.42 uIU/ml (0.47-4.68) L 11/12/24 05:14
Physical Exam
Constitutional: No acute distress, Comfortable and Confusion
EENT: Anicteric and Moist mucous membranes
Cardiovascular: Pedal edema is absent, JVD pressure is normal, Rhythm/rate is irregular, Systolic murmur present and Diastolic murmur present
Respiratory: Respiratory effort normal and Lungs clear to auscul.
GI: Soft, Non tender and Normal bowel sounds
Neuro/Psych: Alert, Tremors and Other (oriented to person and may be place)
Data Reviewed
-
Date of Service: November 13, 2024
Medical Decision Making: Reviewed Test Results and Review of Case with other Provider
EKG: Tracing Personally Visualized and interpreted
Echo: Report Reviewed by me
Labs: Labs Reviewed by me
Old Records: Reviewed
[2024-11-13 08:24] LABS: Glucose - Point of Care 77 mg/dl (70-99)
[2024-11-13] MEDS: LASIX 80 MG PO (08:29)
[2024-11-13] MEDS: LOPRESSOR 12.5 MG PO (08:29)
[2024-11-13] MEDS: FOLVITE 1 MG PO (08:30)
[2024-11-13] MEDS: ELIQUIS 2.5 MG PO (08:30)
[2024-11-13] MEDS: OSCAL 500 + D 500 MG PO (08:31)
[2024-11-13] MEDS: PAXIL 20 MG PO (08:32)
[2024-11-13] MEDS: THERAGRAN 1 TABLET PO (08:32)
--- NOTE | 2024-11-13 08:57 | W.PN.HOSP.TC ---
Today's Communication/Plan
-
Discharge
Assessment / Plan
Assessment / Plan
Gen-AAOx3, NAD
HEENT-NC, AT, anicteric, clear oral mm
Neck-supple
CV-irregular, tacky, no M, +S1/S2
Lungs-clear B/L
Abd-soft, NT, ND
Ext-no edema
Musculoskeletal-no cyanosis, clubbing
Skin-warm and dry
Neuro-grossly non-focal
Psych-calm, cooperative
Rapid atrial fibrillation -now rate controlled on Cardizem and metoprolol. Continue Eliquis. Follow-up with cardiology after discharge.
Food impaction -with history of Schatzki's ring. Was disimpacted 3/ by GI service. Pur�ed diet ordered. May need outpatient esophageal dilation if problem persists. Tolerating diet.
Chronic heart failure with preserved EF -stable.
Aortic stenosis
COPD without exacerbation
GERD
Essential hypertension -stable.
DM2 without hyperglycemia -was on metformin prior to admission. Hemoglobin A1c 6.1%. Can resume metformin on discharge.
Hyperlipidemia -atorvastatin.
Full code
PT/OT -daughter Amy prefers home PT.
Dispo -medically stable for discharge today. Outpatient follow-up. Updated daughter Amy on the phone. All questions answered.
32-minute spent in discharge process.
Anticipated Discharge: Today
Subjective/Interval History
-
Date of Service: November 13, 2024
Patient seen and examined. No complaints.
Objective Data
-
Vital Signs:
Vital Signs
Temp Pulse Resp BP Pulse Ox
97.5 F 73 16 132/102 99
11/13/24 07:25 11/13/24 08:00 11/13/24 07:37 11/13/24 07:19 11/13/24 07:37
I&O
0311/13/24 11/14/24
06:59 06:59 06:59
Intake Total 200 / 200
Balance 200 / 200
Review of Systems
-
History Source: Patient
All other systems: Reviewed and negative
--- NOTE | 2024-11-13 09:04 | W.DS.TRANS ---
DC Summary - Mechanical System Technician
-
Discharge Instructions:
Discharge Diagnosis/Procedures Atrial fibrillation, food impaction
Diet Other diet
Additional Diets Pur�ed diet
Activity As tolerated
Driving Restrictions As prior to admission
Bathing Restrictions None
Other Services PT
Instructions:
Stand-Alone Forms:
Changes to Home Medications: No
Discharge Medications:
DC Medications w/original date entered in [employer]
paroxetine HCl 20 mg tablet 20 mg PO DAILY Mental Health/Anxiety 07/27/10
atorvastatin 40 mg tablet 80 mg PO HS High cholesterol 05/31/12
nitroglycerin 0.4 mg sublingual tablet 0.4 mg sublingual [id number] PRN chest pain 05/29/17
calcium 500 mg (as carbonate)-vitamin D3 5 mcg (200 unit) tablet (Oyster Shell Calcium-Vitamin D3) 1 tab PO BID Supplement 06/13/18
pantoprazole 40 mg tablet,delayed release 20 mg PO DAILY Gastrointestinal issue 06/13/18
acetaminophen 500 mg tablet (Tylenol Extra Strength) 1,000 mg PO Q6HPRN PRN mild pain 10/28/19
ipratropium 0.5 mg-albuterol 3 mg (2.5 mg base)/3 mL nebulization soln 3 ml inhalation R Q6HPRN PRN sob/wheeze 10/28/19
polyvinyl alcohol-povidone (PF) 1.4 %-0.6 % eye drops in a dropperette (Refresh Classic (PF)) 1 drops BOTH EYES DAILYPRN PRN dry eyes/irritation 10/28/19
folic acid 1 mg tablet 1 mg PO DAILY 11/09/19
furosemide 80 mg tablet 80 mg PO DAILY #30 tabs 11/09/19
albuterol sulfate 5 mg/mL(0.5 %) solution for nebulization 2.5 mg inhalation BID Lung/breathing issues 09/03/20
budesonide 0.5 mg/2 mL suspension for nebulization (Pulmicort) 0.5 mg inhalation BID Lung/breathing issues 09/03/20
vodnkdvi-usfn-hzmz 8 mg-folic 400 mcg-K 50 mcg-lutein 300 mcg tablet (Centrum Silver Women) 1 ea PO DAILY Supplement 09/03/20
ipratropium bromide 42 mcg (0.06 %) nasal spray 2 spray intranasal TID Allergies 09/04/20
apixaban 5 mg tablet (Eliquis) 2.5 mg PO BID 11/11/24
metformin 750 mg tablet,extended release 24 hr 750 mg PO DAILY 11/11/24
diltiazem HCl 90 mg tablet 90 mg PO BID #60 tabs 11/13/24
metoprolol tartrate 25 mg tablet 12.5 mg (1/2 x 25 mg) PO BID #30 tabs 11/13/24
Home Medication Changes
Pending Results: No
--- NOTE | 2024-11-13 09:23 | PTCARENOTE ---
Assumed care of pt from night RN. Pt received awake Ox1. VSS, CM shows AF 70-80's, Cardizem increased to 90 mg Bid, will start this am. POX 95-99% on RA. Ptdeniesany pain or discomfortthis am. For D/C home with daughter today.
--- NOTE | 2024-11-13 09:29 | CM ---
Reviewed chart. Met with Mrs. Tirado and her daughter to review discharge plans. She states she maybe able to go home soon. We reviewed [facility] with Matti IVY. She is agreeable to [facility]. Referral sent yesterday. Prior to
admission she resides with her spouse and daughter in a two story home with one step to enter. She has a full flight of steps to get to bedroom/full bathroom. She has a powder room on the firt floor. Prior to admission she ambulated with a walker.
She has a walker, rollator and transfer wheelchair at home. She has a prescription plan and uses [facility]. Medical work-up in progress. The discharge plan is to return home with her spouse and daughter with [facility] when
medically stable.
[2024-11-13] MEDS: CARDIZEM 90 MG PO (09:46)
[2024-11-13 10:09] LABS: Glucose - Point of Care 99 mg/dl (70-99)
--- NOTE | 2024-11-13 11:20 | PTCARENOTE ---
All D/C info reviewed with daughter, all questions answered. Pt D/C'd home with daughter.
== END 2024-11-13 11:15 | disposition home health service (06) | DRG 393 ==
LOC: IVU 22:15
PROVIDERS: Nurse Practitioner Family; ADMITTING PHYSICIAN Internal Medicine; ATTENDING PHYSICIAN Hospitalist; CONSULT PHYSICIAN Internal Medicine Cardiovascular Disease; CONSULT PHYSICIAN Specialist; EMERGENCY PHYSICIAN Emergency Medicine; FAMILY PHYSICIAN Student in an Organized Health Care Education/Training Program
PROC: 0DC38ZZ Extirpation of Matter from Lower Esophagus, Via Natural or Artificial Opening Endoscopic (ICD-10-PCS; 2024-11-11)
DX: T18.128A Food in esophagus causing other injury, initial encounter (principal); K21.01 Gastro-esophageal reflux disease with esophagitis, with bleeding; I48.21 Permanent atrial fibrillation; I50.32 Chronic diastolic (congestive) heart failure; K22.2 Esophageal obstruction; I25.10 Atherosclerotic heart disease of native coronary artery without angina pectoris; I11.0 Hypertensive heart disease with heart failure; E11.9 Type 2 diabetes mellitus without complications; Z79.01 Long term (current) use of anticoagulants; Z79.84 Long term (current) use of oral hypoglycemic drugs
CPT/HCPCS: 80053; 82962; 83036; 83735; 84443; 85025; 94640; 96374; 97163; 97167; 97535; 99285; J1610

== ENCOUNTER → 2025-03-26 13:11 | Outpatient (REF) | payer MEDICARE, OTHER, SELFPAY ==
[2025-03-26 15:41] LABS: Blood Urea Nitrogen 20 mg/dl (7-17); Calcium 9.1 mg/dl (8.4-10.2); Chloride 91 mmol/L (98-107); Glucose 115 mg/dl (70-99); Potassium 3.3 mmol/L (3.5-5.1); Sodium 137 mmol/L (135-145); eGFR > 60.00
[2025-03-26 15:52] LABS: Carbon Dioxide 40 mmol/L (22-30)
== END ==
LOC: REG 13:11
PROVIDERS: ATTENDING PHYSICIAN Student in an Organized Health Care Education/Training Program; FAMILY PHYSICIAN Student in an Organized Health Care Education/Training Program
DX: I50.32 Chronic diastolic (congestive) heart failure (principal)
CPT/HCPCS: 36415; 80048

== ENCOUNTER → 2025-04-01 13:19 | Outpatient (REF) | payer MEDICARE, OTHER, SELFPAY ==
[2025-04-01 14:43] LABS: Blood Urea Nitrogen 19 mg/dl (7-17); Calcium 9.2 mg/dl (8.4-10.2); Carbon Dioxide 38 mmol/L (22-30); Chloride 94 mmol/L (98-107); Glucose 141 mg/dl (70-99); Potassium 4.2 mmol/L (3.5-5.1); Sodium 137 mmol/L (135-145); eGFR > 60.00
== END ==
LOC: REG 13:19
PROVIDERS: ATTENDING PHYSICIAN Student in an Organized Health Care Education/Training Program; FAMILY PHYSICIAN Student in an Organized Health Care Education/Training Program
DX: E87.6 Hypokalemia (principal)
CPT/HCPCS: 36415; 80048

== ENCOUNTER 2025-06-18 21:54 | Inpatient (IN) | payer MEDICARE, OTHER, SELFPAY ==
[2025-06-18 14:57] VITALS: BP 162/90
[2025-06-18 15:11] LABS: Hematocrit 42.3 % (37.0-47.0); Hemoglobin 13.3 g/dL (12.0-16.0); Mean Corp Hgb Conc. 31.4 g/dL (33.0-37.0); Mean Corpuscular Volume 98.1 fL (81.0-99.0); Nucleated Red Blood Cells % 0 %; Platelet Count 275 10^3/uL (130-400); Red Cell Dist. Width 16.2 % (11.5-14.5)
[2025-06-18 15:26] LABS: ALT (SGPT) 18 U/L (0-35); AST (SGOT) 25 U/L (14-36); Albumin 3.9 g/dl (3.5-5.0); Alkaline Phosphatase 74 U/L (38-126); Blood Urea Nitrogen 20 mg/dl (7-17); Calcium 9.1 mg/dl (8.4-10.2); Carbon Dioxide 37 mmol/L (22-30); Chloride 98 mmol/L (98-107); Glucose 137 mg/dl (70-99); Potassium 4.3 mmol/L (3.5-5.1); Sodium 141 mmol/L (135-145); Total Protein 6.8 g/dl (6.3-8.2); eGFR > 60.00
--- NOTE | 2025-06-18 18:45 | ED.GENMED ---
History of Present Illness
General
Chief Complaint: Swallowing Problem
Source: patient and family
Exam Limitations: none
Time Seen by Provider: 06/18/25 18:37
History of Present Illness
History of Present Illness:
See MDM
Past History
Past History
ED Past Medical History: Asthma, CAD, GERD, HTN, Hypercholesterolemia, NIDDM and Other (TIA's , Schatzki's ring)
ED Past Surgical History: Appendectomy, Cardiac (Stents X2) and Orthopedic (Rotatro cuff repair,)
Social History
Tobacco: Non-smoker
Alcohol: Daily (Wine 2 glasses)
Drug: None
Personal:
Living: with family
Employment: Other
Family History
Family History: Unable to obtain
Phy Exam
Physical Exam
Physical Exam:
See MDM
Course
Orders/Labs/Results
Orders:
Orders
06/18/25 15:04
Complete Blood Count/With Diff Urgent
Comprehensive Metabolic Panel Urgent
06/18/25 18:42
0.9% Sodium Chloride 1000 ml [Nss] 1,000 ml IV BOLUS
06/18/25 18:45
Glucagon [GlucaGen] 1 mg IV NOW STA
06/18/25 19:59
CT Chest With Iv Contrast Urgent
Comment: concern for possible mass
Reason For Exam: trouble swallowing
06/18/25 20:03
Consult Gastroenterology [GASTROINTESTINAL CONSULT] Routine
Consulting Provider: Yomi Matt
Was physician already notified: Yes
Abnormal Lab Results
06/18/25
15:04
MCHC 31.4 L g/dL
(33.0-37.0)
RDW 16.2 H %
(11.5-14.5)
Absolute Neuts (auto) 7.5 H 10^3/uL
(1.4-6.5)
Absolute Lymphs (auto) 0.6 L 10^3/uL
(1.2-3.4)
Neutrophils % 87.0 H %
(42.2-75.2)
Lymphocytes % 7.4 L %
(20.5-51.1)
Carbon Dioxide 37 H mmol/L
(22-30)
BUN 20 H mg/dl
(7-17)
Glucose 137 H mg/dl
(70-99)
06/18/25 15:04
06/18/25 15:04
Vital Signs
Initial and Last Documented VS:
Initial Vital Signs
Temp Pulse Resp BP Pulse Ox
97.4 F 116 20 162/90 97
06/18/25 14:57 06/18/25 14:57 06/18/25 14:57 06/18/25 14:57 06/18/25 14:57
Last Documented Vital Signs
Temp Pulse Resp BP Pulse Ox
97.4 F 89 28 155/73 98
06/18/25 14:57 06/18/25 19:45 06/18/25 19:45 06/18/25 19:00 06/18/25 19:45
MDM/Problems Addressed
Differential Diagnosis Includes:
Note:
CHIEF COMPLAINT(S)
Difficulty swallowing
HISTORY OF PRESENT ILLNESS
The patient is an 84-year-old female presenting with difficulties swallowing over the past couple of days. Per available information, she has a known history of swallowing issues and has undergone several endoscopies in the past. The patient
recently experienced worsening symptoms, with even water proving difficult to swallow. She has been on a pureed diet and reports a decreased appetite. Liquids in particular have become more problematic for her to consume. The patient denies any
abdominal pain. She has not received any discussion regarding the possibility of a percutaneous endoscopic gastrostomy (PEG) tube. Dehydration is suspected due to her difficulty in maintaining oral intake.
CHRONIC MEDICAL CONDITIONS SIGNIFICANTLY AFFECTING CARE
Chronic swallowing difficulties
PHYSICAL EXAM
General: Alert, no acute distress.
Skin: Warm, dry.
Head: Normocephalic, atraumatic
Neck: Appears supple, trachea midline.
Eyes, Ears, Nose, Mouth, and Throat: Mildly dry mucous membranes
Cardiovascular: No signs of cyanosis
Respiratory: Respirations are non-labored.
Abdomen: Non-distended
Musculoskeletal: No deformities
Neurological: No focal neurological deficit observed.
Psychiatric: Cooperative, appropriate mood and affect.
PROBLEM LIST
Acute:
- Worsening dysphagia with difficulty swallowing liquids
Chronic:
- Chronic swallowing issues
PLAN
- Initiate intravenous fluids to address potential dehydration due to impaired oral intake.
- Consider admission for overnight observation.
- Pending the return of remaining laboratory results to evaluate further potential causes of dysphagia.
- Consult Speech Therapy to assess swallowing function.
- Consult Gastroenterology to consider further evaluation including potentially another endoscopy, given the continued difficulty in swallowing and lack of previous significant findings.
- Collaborate with treating physician regarding possible follow-up care and further intervention strategies.
DIFFERENTIAL DIAGNOSIS
The Differential Diagnosis includes, in no particular order and is not limited to:
- Esophageal stricture
- Achalasia
- Gastroesophageal reflux disease (GERD)
- Esophageal cancer
- Neurological disorders affecting swallowing (e.g., stroke)
- Zenkers diverticulum
- Esophagitis
- Motor neuron disease
- Structural abnormalities of the esophagus
- Pharyngeal pouch
06/18/25 - 18:47
Upon further questioning, the symptoms appear to be more chronic, with the recent impaction developing over several days to weeks, as reported by the family. Plan to administer a dose of glucagon and attempt an esophageal obstruction (EO) challenge
before consulting with gastroenterology (GI).
06/18/25 - 19:31
Patient continues to experience difficulty swallowing fluids, as evidenced by spitting up water after glucagon administration. Plan to consult gastroenterology for evaluation and recommendations on managing potential esophageal or swallowing issues.
SUMMARY OF ENCOUNTER
The patient presented to the emergency department with difficulty swallowing. She has a history of esophageal food impaction, but this presentation has evolved more slowly and now includes difficulty swallowing even water. Her current state is
non-toxic in appearance.
DISPOSITION
Admit
ASSESSMENT
The patient is experiencing significant dysphagia with possible underlying esophageal abnormalities not previously identified. This is evidenced by her worsening ability to swallow liquids.
MANAGEMENT OF THE PATIENTS CARE WAS DISCUSSED WITH
Consultation with gastroenterology is scheduled for further evaluation.
PLAN
The patient will be admitted for observation and further evaluation of her swallowing difficulties.
INDEPENDENT REVIEW OF LABS AND INTERPRETATION OF TESTS
My independent CT chest interpretation is pending, as it has been ordered to rule out any intrathoracic mass.
MEDICATION RECONCILIATION
No medications were administered or prescribed during this visit, as the focus was on admission for further evaluation.
MEDICAL DECISION MAKING
-Complexity of Data Reviewed: Chronic conditions affecting care include chronic swallowing difficulties, with a differential diagnosis list including esophageal stricture, achalasia, gastroesophageal reflux disease (GERD), esophageal cancer,
neurological disorders affecting swallowing, Zenkers diverticulum, esophagitis, motor neuron disease, structural abnormalities of the esophagus, and pharyngeal pouch.
-Data:
Category 1
- The following testing was considered: a CT scan of the chest to rule out intrathoracic mass.
Category 3
- Discussion of management with gastroenterology for further evaluation.
DIAGNOSIS
Dysphagia, unspecified (ICD-10: R13.10)
*Pulse Oximetry
SaO2: 97
Nasal Cannula flow liters per minute: 3
Oxygen Mode of Delivery: Room air
Patient hypoxic: no
*Critical Care Note
Total Time (30-74mins, 75-104mins- exclusive of procedures): Not Applicable
ED Attending Note
-
Portions of this chart may have been created with voice recognition software.� Occasional wrong word or��sound alike� substitutions may have occurred due to the inherent limitations of voice recognition software.
Discharge Plan
Departure
Patient Disposition: Admit
Date of Disposition: 06/18/25
Time of Disposition: 20:04
Admit to: Med/Surg
Presentation/result/management discussed w/ accepting MD/DO: Hospitalist
Discharge Problem:
Dysphagia
Prescriptions:
No Action
paroxetine HCl 20 MG tablet
20 mg PO DAILY
atorvastatin 40 MG tablet
80 mg PO HS
nitroglycerin 0.4 MG tablet, sublingual
0.4 mg sublingual [id number] PRN (Reason: chest pain)
pantoprazole 40 MG tablet,delayed release (DR/EC)
20 mg PO DAILY
calcium carbonate-vitamin D3 [Oyster Shell Calcium-Vit D3] 500 MG tablet
1 tab PO BID
ipratropium-albuterol 3 ML solution for nebulization
3 ml inhalation R Q6HPRN PRN (Reason: sob/wheeze)
acetaminophen [Tylenol Extra Strength] 500 MG tablet
1,000 mg PO Q6HPRN PRN (Reason: mild pain)
Refresh Classic (PF) 10 DROPS dropperette
1 drops BOTH EYES DAILYPRN PRN (Reason: dry eyes/irritation)
furosemide 80 MG tablet
80 mg PO DAILY Qty: 30 0RF
folic acid 1 MG tablet
1 mg PO DAILY 0RF
budesonide [Pulmicort] 0.5 MG/2 ML suspension for nebulization
0.5 mg inhalation BID
albuterol sulfate 5 MG/ML solution for nebulization
2.5 mg inhalation BID
Centrum Silver Women 1 EACH tablet
1 ea PO DAILY
ipratropium bromide 1 SPRAY spray,non-aerosol
2 spray intranasal TID
metformin 750 mg Tablet Extended Release 24 Hr
750 mg PO DAILY
Eliquis 5 MG tablet
2.5 mg PO BID
diltiazem HCl 90 mg Tablet
90 mg PO BID Qty: 60 0RF
metoprolol tartrate 25 mg Tablet
12.5 mg PO BID Qty: 30 0RF
Referrals:
Ivan Anton DO [Family Provider, Family Practice]
Interventions
Interventions:
*Risk Screen - Suicide Last Done: 06/18/25 18:56
*General Assessment Last Done: 06/18/25 18:56
*Neglect/Abuse Screening Last Done: 06/18/25 18:56
*ED COVID-19 Vaccine History Last Done: 06/18/25 18:56
*ED Influenza Vaccine History Last Done: 06/18/25 18:56
ED-EENT Assessment Last Done: 06/18/25 19:27
KE-Sizivr-Xjibqegrqx Assessment Last Done: 06/18/25 19:27
ED- Pulmonary Assessment Last Done: 06/18/25 19:27
ED- Neurological Assessment Last Done: 06/18/25 19:27
Discharge Date and Time
Print Language: MAURITANIAN
[2025-06-18] MEDS: NSS 1000 IV ×2 (18:52→22:58)
[2025-06-18 18:55] VITALS: BP 150/99
[2025-06-18 19:00] VITALS: BP 155/73
[2025-06-18 20:00] VITALS: BP 158/87
--- NOTE | 2025-06-18 20:50 | HPS.HSE ---
Addendum entered and electronically signed by Yeimi Watkins MD 06/18/25 23:18:
This is an addendum to H&P written by Fariha Fox on 06/18/2025. �Patient seen and examined independently with RN CASE MGR.
84-year-old female past medical history of esophageal food impaction prior disimpaction, Schatzki's ring atrial fibrillation on Eliquis, CAD status post stents chronic HFpEF on 2L oxygen, aortic stenosis, COPD, GERD, hypertension, diabetes,
hyperlipidemia, presenting with trouble swallowing. �Had similar symptoms previously in November when she had food impaction. Also increased shortness of breath.�
Vital signs show blood pressure 150s to 160s. �Heart rate up to 116.
Labs unremarkable.
Patient with recurrent esophageal food impaction. �IV fluids and glucagon given without improvement. �NPO. �Hold Eliquis. �GI consulted and recommended CT chest.
Original Note:
Family Physician
-
Family Physician: Ivan Anton, DO
Chief Complaint
-
Dysphagia
History of Present Illness
84-year-old female complaining of difficulty swallowing over the past several days. She reports being on a pur�ed diet has had decreased appetite she is having difficulty swallowing water and her pills. Her daughter did states she was able to take
Eliquis today 06/18/2025 in a.m. She has been also having difficulty swallowing her own saliva she tends to spit it into a napkin. They have tried crushing her pills but are unable to crush her Cardizem ER. She had history of esophageal food
impaction November 2024 requiring EGD. She denies fever, chills, chest pain, palpitations, cough, shortness of breath, abdominal pain, nausea, vomiting, diarrhea, urinary symptoms. She has Past medical history esophageal food impaction November 2024
requiring EGD, Schatzki's ring, permanent A-fib, CHF preserved EF, chronic hypoxic respiratory failure on chronic 2 L nasal cannula, HTN, HLD, GERD, anxiety, DM 2, PAD, CVA
Medical History
Past Medical History
Past Medical History: Reports Other
Additional Past Medical History:
permanent atrial fibrillation
Schatzki's ring
atherosclerotic heart disease
hyperlipidemia
essential hypertension
DM II
GERD
anxiety
PAD
chronic hypoxic respiratory failure on chronic 2 L nasal cannula
HFpEF
Hx CVA
Past Surgical History: Reports Other
Additional Past Surgical History:
cardiac stents
EGD
lumpectomy
appendectomy
tonsillectomy
tubal ligation
right knee replacement
Social History
Tobacco: Non-smoker
Alcohol: Daily (Prior glass of wine)
Drug: None
Living: With Family
Employment: Retired
Family History
Family History: Not pertinent
Allergies / Home Medications
Allergies reflects when Allergies were last updated in [employer].
Home Medications with original date entered in [employer]
Allergy/Medication List:
Allergies
Allergy/AdvReac Type Severity Reaction Status Date / Time
cat dander Allergy ITCHY EYES Verified 06/18/25 14:58
house dust Allergy ITCHING/SNE Verified 06/18/25 14:58
EZING
mold Allergy ITCHING/SNE Verified 06/18/25 14:58
EZING
pollen extracts Allergy HAYFEVER-IT Verified 06/18/25 14:58
ALLISON
Sulfa (Sulfonamide Allergy Rash Verified 06/18/25 14:58
Antibiotics)
sulfisoxazole Allergy Rash Verified 06/18/25 14:58
trimethoprim Allergy Rash Verified 06/18/25 14:58
Home Medications
paroxetine HCl 20 mg tablet 20 mg PO DAILY Mental Health/Anxiety 07/27/10
calcium 500 mg (as carbonate)-vitamin D3 5 mcg (200 unit) tablet (Oyster Shell Calcium-Vitamin D3) 1 tab PO BID Supplement 06/13/18
acetaminophen 500 mg tablet (Tylenol Extra Strength) 1,000 mg PO Q6HPRN PRN mild pain 10/28/19
ipratropium 0.5 mg-albuterol 3 mg (2.5 mg base)/3 mL nebulization soln 3 ml inhalation R TID 10/28/19
polyvinyl alcohol-povidone (PF) 1.4 %-0.6 % eye drops in a dropperette (Refresh Classic (PF)) 1 drops BOTH EYES DAILYPRN PRN dry eyes/irritation 10/28/19
folic acid 1 mg tablet 1 mg PO DAILY 11/09/19
furosemide 80 mg tablet 80 mg PO DAILY #30 tabs 11/09/19
budesonide 0.5 mg/2 mL suspension for nebulization (Pulmicort) 0.5 mg inhalation R BID Lung/breathing issues 09/03/20
albuterol sulfate 2.5 mg/3 mL (0.083 %) solution for nebulization 2.5 mg inhalation R BID 06/18/25
apixaban 2.5 mg tablet (Eliquis) 2.5 mg PO BID 06/18/25
atorvastatin 80 mg tablet (Lipitor) 80 mg PO QPM 06/18/25
diltiazem HCl 120 mg capsule,24 hr,extended release 120 mg PO DAILY 06/18/25
pantoprazole 20 mg tablet,delayed release (Protonix) 20 mg PO DAILY 06/18/25
potassium chloride 20 mEq tablet,extended release 20 meq PO DAILY 06/18/25
therapeutic multivitamin 1 tab PO DAILY 06/18/25
Review of Systems
-
History Source: Patient and Family (Daughter and at bedside)
A 12 point ROS was completed and negative except as noted: Yes
Constitutional: Denies Fever or Chills
EENT: Reports Other (Dysphagia); Denies Sore Throat or Runny Nose
Respiratory: Denies Cough or Trouble Breathing
Cardiac: Denies Chest Pain, Diaphoresis or Palpitations
Abdomen/GI: Denies Abdominal Pain, Nausea, Vomiting, Diarrhea or Constipated
: Denies Dysuria, Frequency, Flank Pain, Incontinence, Difficulty Voiding or Urgency
Musculoskeletal: Denies Joint Pain or Edema
Skin: Denies Itching or Rash
Neurological: Denies Dizzy, Headache or Weakness
Endocrine: Reports No Symptoms
Hematologic/Lymphatic: Reports No Symptoms
Psych: Reports Calm
Physical Exam
Vital Signs
Vital Signs
Temp Pulse Resp BP Pulse Ox
97.4 F 89 28 155/73 98
06/18/25 14:57 06/18/25 19:45 06/18/25 19:45 06/18/25 19:00 06/18/25 19:45
Physical Exam
General: No Fever or Chills
HEENT: NormoCephalic, Anicteric, PERRLA, [place] Conjunctivae, No Ptosis and Oxygen (Chronic 2 L nasal cannula); No Pharyngeal Erythema
Respiratory: Clear; No Wheezes, Rales or Rhonchi
Cardiac: S1/S2; No Murmur, Rub, Gallop or Peripheral Edema
Breast: Deferred by me
GI: Soft, Non Tender, Non Distended, Normal Bowel Sounds and No Hepatosplenomegaly
Rectal: Deferred by Provider
Genito-urinary: Deferred by me
Musculoskeletal: No Clubbing, No Cyanosis and No Edema
Skin: Warm and Dry; No Rash
Neuro: AO x 3, No Motor Deficits, Nonfocal/grossly intact and No Sensory Deficits; No Slurred Speech, Facial Droop, Tremors or Sedated
Psych: Calm
Laboratory Results
-
06/18/25 15:04
06/18/25 15:04
Laboratory Results
Total Bilirubin 0.8 mg/dl (0.2-1.3) 06/18/25 15:04
AST 25 U/L (14-36) 06/18/25 15:04
ALT 18 U/L (0-35) 06/18/25 15:04
Alkaline Phosphatase 74 U/L (38-126) 06/18/25 15:04
Impression/Plan
-
Impression/plan:
Admit to MedSurg
#Dysphagia concern for esophageal food impaction
#History of esophageal food impaction November 2024 requiring EGD
#History of Schatzki's ring
- Check CT chest-pending on admission
- Consult GI Dr. Matt aware
-N.p.o.
- IV glucagon given in ER with no results
- IV PPI
- Hold Eliquis
#Permanent A-fib
Hold Cardizem, metoprolol
-As needed metoprolol 5 mg IV heart rate> 120
- Hold Eliquis
#DM 2
Accu-Cheks with SSI
-IV dextrose as needed blood sugar<70
#Atherosclerotic disease status post stenting
Hold current atorvastatin, metoprolol, diltiazem
#CHF preserved EF
#chronic hypoxic respiratory failure on chronic 2 L nasal cannula
I/O, daily weight
-Continue albuterol, budesonide
ECHO (08/27/2024): Small LV with hyperdynamic function and mild LVH, LVEF 70%.
Normal right ventricular size and function.
Severe left and moderate right atrial enlargement.
Moderate mitral stenosis with a mean gradient of 9 mmHg. Trace MR.
Severe aortic stenosis (peak 61 mmHg, mean 39 mmHg, DI 0.2, BERENICE 0.6 cmsq).
Mild aortic regurgitation.
Mild to moderate tricuspid regurgitation.
Estimated PASP 50 mmHg and estimated RA 3 mmHg.
Compared to prior study of 02/16/2023 has progressed from moderate/severe (mean 27 mmHg, DI 0.27
#HTN
BP 155/73
Hold diltiazem,, metoprolol due to dysphagia
#HLD
Hold statin
#
GERD
-IV PPI
#Anxiety
- Hold paroxetine
PAD
CVA
DVT prophylaxis
Hold Eliquis
Full code
[2025-06-18 22:23] VITALS: BP 165/82; BMI 19.5
[2025-06-18 22:35] VITALS: BP 156/80
[2025-06-18 22:47] VITALS: BMI 19.5
[2025-06-18 23:24] LABS: Glucose - Point of Care 121 mg/dl (70-99)
[2025-06-19] VITALS (23 sets, daily range): BP systolic 87–159; BP diastolic 52–97; BMI 19.3
--- NOTE | 2025-06-19 01:08 | PTCARENOTE ---
received pt from ED 2245 06/18. pt A&O x self and place, confused at baseline per daughter. pt pulled over from stretcher to bed. pt with labored breathing, tachypneic RR 32, 93% on 2L (chronically on 2L), 165/82, HR 99. pt denies CP or palpitations.
EKG done afib with RVR (HR 114), pt hx of chronic afib. pt made comfortable in bed & oriented to floor. PERINATAL EDUCATOR at bedside. repeat VS 156/80, HR 102, RR 24, 95 2L. no new orders at this time. plan of care ongoing.
--- NOTE | 2025-06-19 06:51 | CON.GI ---
Addendum entered and electronically signed by Yomi Matt MD 06/19/25 13:56:
I saw and examined the patient.
The PICU NURSE or PA's note was reviewed and I agree with the note.
Comment:
This patient is a complicated 84-year-old woman with a history of CVA and A-fib on Eliquis, asthma, GERD who has had a prior food impactions and severe esophagitis. Review of documents and actual films show an air-fluid level in the chest
concerning for either achalasia or paraesophageal hernia. She does come into the hospital with decreased p.o. intake and chronic worsening dysphagia. She was last seen in April and referred to a dietitian. CAT scan done in the ER did show
diffuse esophageal dilation and a question of a mass.
abd: soft
tachypneic
impression
dysphagia possibly secondary to achalasia vs paraesophageal hernia
gerd
esophagitis
abnl imaging
plan:
needs optimization as has pleural effusion, sob and severe
will need egd when stable (off eliquis)
likely this is all stasis due to extrinsic compression from a PEH vs achalais. UGI vs esophageal manometry to assess after EGD (based on results)
PPI
NPO
Original Note:
Consultation
-
Date/Time Consultation Requested: 06/18/251999
Date/Time Consultation Performed: 06/19/25729
Requesting Provider: Renny Dean DO
Performing Provider: MAIAD Blankenship, Yomi Matt MD
Reason for Consultation: dysphagia
Medical History
Chief Complaint / HPI
Chief Complaint: Food impaction
History of Present Illness:
84yo female with hx afib on Eliquis, CVA, CHF, GERD, HTN, NIDDM, asthma, cardiac stents, severe , mild AR, mild/mod TR per echo 2023, PAD, anxiety and prior food impaction presents to ER last PM with difficulty swallowing for several days with
even liquids. Per patent and family has been a chronic problem with worsening symptoms. She is also noted with progressive dyspnea and decreased pulse ox prior to admission. In review of chart she had multiple EGD over the years with concern for
esophageal dysmotility disorder, paraesophageal hernia, food impactions, HH, schatzki's ring with dilation, esophagitis, gastritis with last EGD in 11/2024 with with food in lower third of esophagus, mild severe esophagitis with bleeding,
normal stomach. She was last see by in April and recommended nutritional supplement and reservationist. Also discussed risks of repeat EGD with dilation and peg tube with concern for last EGD required admission for rapid afib after
procedure. On admission CT noted with diffuse esophageal dilation to EG junction with irregularity at EG junction. moderate to large b/l pleural effusion increased from September. slightly large adrenal gland mass from 2019. sm to moderate HH to
left hemithorax.
At this time patient admits to chronic dysphagia. She admits to vomiting mucous and food at times but currently controlling her secretions. She has had wt loss. She was unsure of amount but noted with 50 lb wt loss since 2019 and 15 lbs since
11/2024 per chart. She admits to some diffuse abdominal pain in AM. Symptoms improve as day progresses. She denies odynophagia, GERD, hematemesis, diarrhea, constipation or rectal bleeding.
Past Medical History
Past Medical History: Arrhythmias (afib), Asthma, CHF, CVA, GERD, HTN, NIDDM, Valvular Disease (severe mild AR, mild/mod TR per echo 2023) and Other (anxiety, PAD, prior food impaction, dysphagia)
Past Surgical History: Appendectomy, Cardiac (stent), Orthopedic (RTKR, rotator cuff surgery), Tonsilectomy and Other (lumpectomy, tubal)
Social History
Tobacco: Non-Smoker
Alcohol: Occasional (rare)
Drug: None
Personal:
Living: With Family
Employment: Retired
Family History
Family History: Other (no family hx GI issues)
Allergies / Home Medications
Allergy/AdvReac Type Severity Reaction Status Date / Time
cat dander Allergy ITCHY EYES Verified 06/18/25 14:58
house dust Allergy ITCHING/SNE Verified 06/18/25 14:58
EZING
mold Allergy ITCHING/SNE Verified 06/18/25 14:58
EZING
pollen extracts Allergy HAYFEVER-IT Verified 06/18/25 14:58
ALLISON
Sulfa (Sulfonamide Allergy Rash Verified 06/18/25 14:58
Antibiotics)
sulfisoxazole Allergy Rash Verified 06/18/25 14:58
trimethoprim Allergy Rash Verified 06/18/25 14:58
�Medication �Instructions �Recorded
paroxetine HCl 20 mg tablet 20 mg PO DAILY Mental 07/27/10
Health/Anxiety
calcium 500 mg (as 1 tab PO BID Supplement 06/13/18
carbonate)-vitamin D3 5 mcg (200
unit) tablet (Oyster Shell
Calcium-Vitamin D3)
acetaminophen 500 mg tablet 1,000 mg PO Q6HPRN PRN mild pain 10/28/19
(Tylenol Extra Strength)
ipratropium 0.5 mg-albuterol 3 mg 3 ml inhalation R TID 10/28/19
(2.5 mg base)/3 mL nebulization
soln
polyvinyl alcohol-povidone (PF) 1 drops BOTH EYES DAILYPRN PRN dry 10/28/19
1.4 %-0.6 % eye drops in a eyes/irritation
dropperette (Refresh Classic (PF))
folic acid 1 mg tablet 1 mg PO DAILY 11/09/19
furosemide 80 mg tablet 80 mg PO DAILY #30 tabs 11/09/19
budesonide 0.5 mg/2 mL suspension 0.5 mg inhalation R BID 09/03/20
for nebulization (Pulmicort) Lung/breathing issues
albuterol sulfate 2.5 mg/3 mL 2.5 mg inhalation R BID 06/18/25
(0.083 %) solution for nebulization
apixaban 2.5 mg tablet (Eliquis) 2.5 mg PO BID 06/18/25
atorvastatin 80 mg tablet (Lipitor) 80 mg PO QPM 06/18/25
diltiazem HCl 120 mg capsule,24 120 mg PO DAILY 06/18/25
hr,extended release
pantoprazole 20 mg tablet,delayed 20 mg PO DAILY 06/18/25
release (Protonix)
potassium chloride 20 mEq 20 meq PO DAILY 06/18/25
tablet,extended release
therapeutic multivitamin 1 tab PO DAILY 06/18/25
Review of Systems
-
Unable to obtain full review of systems at this time due to: Other (slight limitation with shortness of breath )
History Source: Patient and Family
Constitutional: Reports Weight Loss and Fatigue
EENT: Reports Other (dysphagia)
Respiratory: Reports Trouble Breathing
Abdomen/GI: Reports Abdominal Pain (in AM) and Other (+ dysphagia with liquids and solids )
: Reports No Symptoms
Musculoskeletal: Reports No Symptoms
Skin: Reports No Symptoms
Neurological: Reports Weakness
Endocrine: Reports No Symptoms
Hematologic/Lymphatic: Reports No Symptoms
Vital Signs
Temp Pulse Resp BP Pulse Ox
98.0 F 98 36 159/97 94
06/18/25 22:23 06/19/25 03:21 06/19/25 03:21 06/19/25 03:21 06/19/25 03:21
Physical Exam
Exam
General: Other (thin appearing , no visible cough up secretions )
HEENT: Normocephalic and Anicteric
Respiratory: Other (decreased bases, marked dyspnea at rest )
Cardiac: Murmur and Other (tachy)
GI: Soft, Non Tender and Non Distended
Musculoskeletal: No Clubbing
Skin: Warm and Dry
Neuro: Awake, Alert and AO x 3
Psych: Calm
Results
WBC 8.6 10^3/uL (4.8-10.8) 06/18/25 15:
Hgb 13.3 g/dL (12.0-16.0) 06/18/25 15:04
Hct 42.3 % (37.0-47.0) 06/18/25 15:
MCV 98.1 fL (81.0-99.0) 06/18/25 15:
Plt Count 275 10^3/uL (130-400) 06/18/25 15:04
Absolute Neuts (auto) 7.5 10^3/uL (1.4-6.5) H 06/18/25 15:
Sodium 141 mmol/L (135-145) 06/18/25 15:
Potassium 4.3 mmol/L (3.5-5.1) 06/18/25 15:
Chloride 98 mmol/L (98-107) 06/18/25 15:
Carbon Dioxide 37 mmol/L (22-30) H 06/18/25 15:
BUN 20 mg/dl (7-17) H 06/18/25 15:
Creatinine 0.6 mg/dL (0.6-1.0) 06/18/25 15:
Calcium 9.1 mg/dl (8.4-10.2) 06/18/25 15:
Total Bilirubin 0.8 mg/dl (0.2-1.3) 06/18/25 15:
AST 25 U/L (14-36) 06/18/25 15:
ALT 18 U/L (0-35) 06/18/25 15:
Alkaline Phosphatase 74 U/L (38-126) 06/18/25 15:04
Diagnostic Image Results:
06/18/25 CT chest
There is diffuse esophageal dilation which extends to the esophagogastric junction. On coronal images, slight irregularity of the wall at the esophagogastric junction, and given the esophageal dilation, raises concern for neoplasia. As warranted,
consider further evaluation with upper endoscopy.
Moderate to large bilateral pleural effusions, increasing from chest radiograph of October 08, 2024. Adjacent atelectasis.
Right adrenal gland mass has measurements which are slightly larger than examination of August 2020. With minimal enlargement over a timeframe of almost 5 years, this very likely represents a benign adrenal gland mass such as adenoma or
myelolipoma. There is also a small left adrenal gland mass, stable, which is likely an adenoma.
Lack of opacification of the left atrial appendage, suspicious for thrombus.
Small to moderate hiatal hernia, extending into the medial left lower hemithorax.
Prior GI Procedures:
11/11/24 EGD- Food in lower esophagus removed w snare. Mild esophagitis.
05/13/14 EGD- Schatzki's ring dilated w 18mm balloon. Antral erythema. HH.
02/23/14 EGD ([facility])- Tortuous esoph. Esophagitis. Food in stomach. Gastric erythema. Paraesophageal hernia. Schatzki's ring.
10/02/13 EGD ([facility])- Esophagitis. HH. Gastritis.
06/12/13 EGD- Schatzki's ring dilated w 15mm balloon. Ringed esoph bx neg
04/06/13 EGD ([facility])- Food impaction. HH. Schatki's ring. Antral erythema. Esophagitis
05/24/11 EGD ([facility])- Anormal contractions esophagus. HH. Antral erosions
02/07/08 [facility] ([facility])- Diverticulosis
01/25/08 EGD ([facility])- HH. Gastric erythema bx negative HP. Reflux
08/2024 echo
Small LV with hyperdynamic function and mild LVH, LVEF 70%.
Normal right ventricular size and function.
Severe left and moderate right atrial enlargement.
Moderate mitral stenosis with a mean gradient of 9 mmHg. Trace MR.
Severe aortic stenosis (peak 61 mmHg, mean 39 mmHg, DI 0.2, BERENICE 0.6 cmsq).
Mild aortic regurgitation.
Mild to moderate tricuspid regurgitation.
Estimated PASP 50 mmHg and estimated RA 3 mmHg.
Compared to prior study of 02/16/2023 has progressed from moderate/severe
(mean 27 mmHg, DI 0.27, BERENICE 0.8 cmsq) to severe as described above.
Assessment / Plan
-
84yo female with hx afib on Eliquis, CVA, CHF, GERD, HTN, NIDDM, asthma, cardiac stents, severe ,mild AR, mild/mod TR per echo 2023, PAD, anxiety and prior food impaction presents to ER last PM with difficulty swallowing for several days with
even liquids. Per patent and family has been a chronic problem with worsening symptoms. She is also noted with progressive dyspnea and decreased pulse ox prior to admission. In review of chart she had multiple EGD over the years with concern for
esophageal dysmotility disorder, paraesophageal hernia, food impactions, HH, schatzki's ring with dilation, esophagitis, gastritis with last EGD in 11/2024 with with food in lower third of esophagus, mild severe esophagitis with bleeding,
normal stomach. She was last see by in April and recommended nutritional supplement and reservationist. Also discussed risks of repeat EGD with dilation and peg tube with concern for last EGD required admission for rapid afib after
procedure. On admission CT noted with diffuse esophageal dilation to EG junction with irregularity at EG junction. moderate to large b/l pleural effusion increased from September. slightly large adrenal gland mass from 2019. sm to moderate HH to
left hemithorax.
-dysphagia with solids and liquids
-hx multiple EGD's with concern for esophageal dysmotility d/o, PEH, food impactions, HH, schatzki's ring with dilation, esophagitis, gastritis
-CT with esophageal dilation
-CT with irregularity to EG junction
-dyspnea with moderate to large b/l effusion
-Afib on Eliquis with hx rapid afib with prior EGD
-hx severe
-wt loss 50 lbs since 2019 and 15 lbs since november
other med problems:
CHF
mild AR, mild/mod TR
CAD prior stent
NIDDM
CVA/TIA
GERD
Asthma
PLAN:
Etiology of dysphagia likely chronic issue with possible achalasias with dilated esophagus vs other
currently with noted marked dyspnea on exam with mod to large b/l effusion on CT
plan for IR eval for tap of effusion
she is currently tolerating secretions without vomiting
would optimized resp status first then consider EGD
consider OP manometry
last Eliquis 06/18
cont NPO for now
pt with marked wt loss unclear if related to underlying GI motility issue vs pulm vs cardiac-- will need dietary consult when diet advance
did review about possible peg if wt loss continued
t/c echo with hx severe
discussed CT with EG junction abnormality and effusion along with plan with daughter all questions answered
reviewed with Dr. Hay and Dr. Matt
-
-
Thank you for consultation and allowing me to participate in the patient's care. Please call the director of industrial relations GI physician during the after hours with any questions or concerns.
--- NOTE | 2025-06-19 07:20 | W.PN.HOSP.TC ---
Today's Communication/Plan
-
Profound lethargy -- transferred to ICU
Please see below
Assessment / Plan
Assessment / Plan
Physical Exam
General: Profoundly lethargic
HEENT: Normocephalic, Oxygen (Chronic 2 L nasal cannula)
Respiratory: Decreased breath sounds bilaterally
Cardiac: S1/S2; Irregular Rhythm
GI: Soft, Non Tender, Non Distended, Normal Bowel Sounds
Musculoskeletal: No Cyanosis and No Edema
Skin: Warm and Dry
Neuro: AO x 3, No Motor Deficits, Nonfocal/grossly intact and No Sensory Deficits
Psych: Calm
Assessment/Plan
84-year-old female past medical history of esophageal food impaction prior disimpaction, Schatzki's ring, atrial fibrillation on Eliquis, CAD status post stents chronic HFpEF on 2L oxygen, aortic stenosis, COPD, GERD, hypertension, diabetes,
hyperlipidemia, presenting with trouble swallowing. Had similar symptoms previously in November 2024 when she had food impaction. Also increased shortness of breath. Initial vital signs showed systolic blood pressure 150s to 160s. Heart rate up to 116
bpm. Labs unremarkable. Patient with recurrent esophageal food impaction. IV fluids and glucagon given without improvement. NPO. Hold Eliquis. GI consulted and recommended CT chest.
#Dysphagia concern for esophageal food impaction
#History of esophageal food impaction November 2024 requiring EGD
#History of Schatzki's ring
- Strict NPO
- CT chest with diffuse esophageal dilation which extends to the esophagogastric junction with possible neoplasia present
- GI consulted, will not go upper endoscopy until patient has a more stable respiratory status
#Profound Lethargy on 06/19/25
- Took place a few hours after thoracentesis 06/19/25
- ABG showed hypercapnia, but not high enough to cause mental status changes
- Spoke with range examiner given serious concern regarding airway protection, patient transferred to ICU
- Not a great idea to use positive pressure/BiPAP as the patient has likely esophageal obstruction and food impaction -- increases risk for
aerophagia and aspiration, but may use BiPAP 08/15 if patient becomes lethargic at night.
- Per range examiner, patient can be monitored in IMU but should remain in IMU/ICU
- Avoid any sedatives
- CT head with right cerebellar lesion, possible subacute infarct, also old stroke as well
- Patient's mental status improved after going to ICU
#Moderate to large bilateral pleural effusions on CT Chest
-Suspected from CHF
-IR consulted, performed thoracentesis on 06/19/25, performed thoracentesis, yielding 1600cc of clear gold pleural fluid
-Will request thoracentesis for tomorrow 06/20/25 of the left side to improve respiratory mechanics
#Right adrenal gland mass
#Small left adrenal gland mass
-Was present on previous imaging
-Outpatient follow-up
#Lack of opacification of the left atrial appendage, suspicious for thrombus on CT Chest imaging
-Appreciate cardio
#Small to moderate hiatal hernia
#Permanent A-fib
- Tachycardic with A-Fib on 06/19/25
- Hold PO Cardizem and Metoprolol given strict NPO
- As needed metoprolol 5 mg IV heart rate> 120
- Hold Eliquis given strict NPO
- Start Heparin Drip in lieu of Eliquis given high risk of stroke, with history of strokes
#Type 2 Diabetes Mellitus
-Accu-Cheks with SSI
-IV dextrose as needed blood sugar<70
#Coronary Artery disease status post stenting
-Hold current atorvastatin, metoprolol, diltiazem
#Acute on Chronic CHF preserved EF
- ProBNP was checked during patient's profound lethargy on 06/19/25, and it was very specific for acute CHF at 5000+
- Start IV Lasix
- Will consult cardiology tomorrow
#Chronic hypoxic respiratory failure on chronic 2 L nasal cannula
-Continue albuterol, budesonide
-Patient uses a Trilogy ventilator at home but has not used it for a few days
-Limit beta agonist (e.g. albuterol) as the patient is tachycardic and has a history of atrial fibrillation
#History of Asthma
#Constipation on Abdominal X-Ray
-Milk of Molasses 500 cc enema
#Hypertension
-Hold diltiazem and metoprolol due to dysphagia
#Hyperlipidemia
-Hold statin
#GERD
-IV PPI
#Anxiety
-Hold paroxetine
PAD
CVA
Right cerebellar hemisphere lesion, possible old infarct on CT Head
Left occipital lobe old stroke on CT Head
Failure to Thrive
-Patient has been losing weight more than 20 to 30 pounds in the last year due to multiple medical issues including swallowing dysfunction
-Muscle mass loss
DVT Prophylaxis: Lovenox
Code Status: DNR/DNI (patient confirmed that those are her wishes)
Profound lethargy is a high risk encounter. Also time spent today on patient's care including chart review, documentation, evaluating and managing patient's lethargy, speaking with range examiner, was 95 minutes.
Anticipated Discharge: > 48 hours
Subjective/Interval History
-
Date of Service: June 19, 2025
Patient was seen and examined. Earlier in the day, she went for a thoracentesis, later in the day she was profoundly lethargic needing CT Head and transfer to ICU/IMU.
Objective Data
-
Labs:
Laboratory Results
06/19/25
06:00
WBC Pending
Hgb Pending
Hct Pending
Plt Count Pending
Sodium Pending
Potassium Pending
Chloride Pending
Carbon Dioxide Pending
BUN Pending
Creatinine Pending
Glucose Pending
Calcium Pending
Total Bilirubin Pending
AST Pending
ALT Pending
Alkaline Phosphatase Pending
Vital Signs:
Vital Signs
Temp Pulse Resp BP Pulse Ox
98.0 F 98 36 159/97 94
06/18/25 22:23 06/19/25 03:21 06/19/25 03:21 06/19/25 03:21 06/19/25 03:21
[2025-06-19] MEDS: VENTOLIN NEBULES 2.5 MG INH ×2 (08:25→20:17)
[2025-06-19] MEDS: PULMICORT 0.5 MG INH ×2 (08:25→20:17)
[2025-06-19] MEDS: PROTONIX IV 40 MG IV (08:42)
[2025-06-19] MEDS: NSS (PRESERVATIVE FREE) 10 ML IV (08:43)
[2025-06-19 08:47] LABS: Hematocrit 43.6 % (37.0-47.0); Hemoglobin 13.0 g/dL (12.0-16.0); Mean Corp Hgb Conc. 29.8 g/dL (33.0-37.0); Mean Corpuscular Volume 102.8 fL (81.0-99.0); Nucleated Red Blood Cells % 0 %; Platelet Count 287 10^3/uL (130-400); Red Cell Dist. Width 16.5 % (11.5-14.5)
[2025-06-19 09:01] LABS: Glycohemoglobin (HgbA1c) 6.2 % (4.0-5.6)
[2025-06-19 09:32] LABS: ALT (SGPT) 18 U/L (0-35); AST (SGOT) 24 U/L (14-36); Albumin 3.8 g/dl (3.5-5.0); Alkaline Phosphatase 72 U/L (38-126); Blood Urea Nitrogen 18 mg/dl (7-17); Calcium 9.3 mg/dl (8.4-10.2); Carbon Dioxide 34 mmol/L (22-30); Chloride 103 mmol/L (98-107); Estimated Creatinine Clearance 53 ml/min; Glucose 97 mg/dl (70-99); Potassium 4.4 mmol/L (3.5-5.1); Sodium 143 mmol/L (135-145); Total Protein 6.6 g/dl (6.3-8.2); eGFR > 60.00
[2025-06-19 09:35] LABS: LDH 199 U/L (120-246); Total Protein 6.7 g/dl (6.3-8.2)
[2025-06-19 11:28] LABS: Body Fluid Second Tech AMA
--- NOTE | 2025-06-19 11:53 | PTCARENOTE ---
Patient returned from IR with bandaid to R back CDI. Pulse OX 98% on 3l. RR 20. Daughter at bedside. No complaints at this time.
[2025-06-19 14:55] LABS: Glucose - Point of Care 97 mg/dl (70-99)
[2025-06-19 15:18] LABS: B.E. 5.4 mmol/L; HCO3 33.2 mmol/L (21-28); O2 Saturation % 99.7 % (94-98); PCO2 63 mmHg (32-35); PO2 129 mmHg (83-108)
[2025-06-19 15:34] LABS: Hematocrit 40.0 % (37.0-47.0); Hemoglobin 12.5 g/dL (12.0-16.0); Mean Corp Hgb Conc. 31.3 g/dL (33.0-37.0); Mean Corpuscular Volume 98.3 fL (81.0-99.0); Nucleated Red Blood Cells % 0 %; Platelet Count 232 10^3/uL (130-400); Red Cell Dist. Width 16.6 % (11.5-14.5)
[2025-06-19 15:41] LABS: Ammonia < 9 umol/L (9-30)
[2025-06-19 15:50] LABS: ALT (SGPT) 16 U/L (0-35); AST (SGOT) 22 U/L (14-36); Albumin 3.3 g/dl (3.5-5.0); Alkaline Phosphatase 65 U/L (38-126); Blood Urea Nitrogen 18 mg/dl (7-17); Calcium 8.8 mg/dl (8.4-10.2); Carbon Dioxide 33 mmol/L (22-30); Chloride 104 mmol/L (98-107); Estimated Creatinine Clearance 53 ml/min; Glucose 115 mg/dl (70-99); Potassium 4.2 mmol/L (3.5-5.1); Sodium 143 mmol/L (135-145); Total Protein 5.9 g/dl (6.3-8.2); eGFR > 60.00
[2025-06-19 15:55] LABS: Troponin I 0.027 ng/ml
--- NOTE | 2025-06-19 16:03 | PTCARENOTE ---
Pt transferred to ICU after CT scan and labs, report called to FABIAN Chou.
--- NOTE | 2025-06-19 16:03 | CON.INTV ---
Consultation
Consultation Request
Date/Time Consultation Requested: 06/19/2025
Date/Time Consultation Performed: 06/19/2024
Requesting Provider: Dr. Mcdonald
Performing Provider: Dr. Carlos Pompa
Reason for Consultation: Hypercapnic respiratory failure acute on chronic/bilateral pleural effusion
Medical History
-
History of Present Illness:
84-year-old woman with complicated past medical history significant for chronic dysphagia, previous esophageal dilatation, history of Schatzki ring, significant valvular disease for which medical management was decided in the outpatient setting.
Comes to the hospital on 06/18/2025 with swallowing difficulties for the last several days.
Reports decreased appetite. Difficulty swallowing water and pills.
Apparently patient has been having also sialorrhea.
Previous history of esophageal impaction in November 2024 status post EGD.
There is no history of vomiting.
Patient underwent right thoracentesis for 1600 cc of clear fluid.
Critical care consulted for change in mental status-patient apparently was lethargic. Less responsive. ABG with acute on chronic hypercapnic respiratory failure
GI correspondence reviewed no plans for EGD at this point until heart failure optimized.
Transferred to the critical care unit
Patient is somnolent but arousable. Follows commands. Able to give some history.
Denies any cough or phlegm production.
Past Medical History
Past Medical History: Other (See assessment and plan)
Social History
Tobacco: Former Smoker
Alcohol: Daily (Glass of wine in the past)
Drug: None
Living: With Family
Employment: Retired
Family History
Family History: Unable to Obtain (Mental status)
Allergies / Home Medications
Allergies
Allergy/AdvReac Type Severity Reaction Status Date / Time
cat dander Allergy ITCHY EYES Verified 06/18/25 14:58
house dust Allergy ITCHING/SNE Verified 06/18/25 14:58
EZING
mold Allergy ITCHING/SNE Verified 06/18/25 14:58
EZING
pollen extracts Allergy HAYFEVER-IT Verified 06/18/25 14:58
ALLISON
Sulfa (Sulfonamide Allergy Rash Verified 06/18/25 14:58
Antibiotics)
sulfisoxazole Allergy Rash Verified 06/18/25 14:58
trimethoprim Allergy Rash Verified 06/18/25 14:58
Home Medications
�Medication �Instructions �Recorded �Confirmed �Last Taken �Type
paroxetine HCl 20 mg tablet 20 mg PO DAILY Mental 07/27/10 06/18/25 06/17/25 History
Health/Anxiety
calcium 500 mg (as 1 tab PO BID Supplement 06/13/18 06/18/25 06/17/25 History
carbonate)-vitamin D3 5 mcg (200
unit) tablet (Oyster Shell
Calcium-Vitamin D3)
acetaminophen 500 mg tablet 1,000 mg PO Q6HPRN PRN mild pain 10/28/19 06/18/25 4 Days Ago History
(Tylenol Extra Strength) ~10/24/19
ipratropium 0.5 mg-albuterol 3 mg 3 ml inhalation R TID 10/28/19 06/18/25 06/17/25 History
(2.5 mg base)/3 mL nebulization
soln
polyvinyl alcohol-povidone (PF) 1 drops BOTH EYES DAILYPRN PRN dry 10/28/19 06/18/25 Unknown History
1.4 %-0.6 % eye drops in a eyes/irritation
dropperette (Refresh Classic (PF))
folic acid 1 mg tablet 1 mg PO DAILY 11/09/19 06/18/25 06/17/25 Rx
furosemide 80 mg tablet 80 mg PO DAILY #30 tabs 11/09/19 06/18/25 06/17/25 Rx
budesonide 0.5 mg/2 mL suspension 0.5 mg inhalation R BID 09/03/20 06/18/25 06/17/25 History
for nebulization (Pulmicort) Lung/breathing issues
albuterol sulfate 2.5 mg/3 mL 2.5 mg inhalation R BID 06/18/25 06/18/25 06/17/25 History
(0.083 %) solution for nebulization
apixaban 2.5 mg tablet (Eliquis) 2.5 mg PO BID 06/18/25 06/18/25 06/18/25 History
atorvastatin 80 mg tablet (Lipitor) 80 mg PO QPM 06/18/25 06/18/25 06/17/25 History
diltiazem HCl 120 mg capsule,24 120 mg PO DAILY 06/18/25 06/18/25 06/17/25 History
hr,extended release
pantoprazole 20 mg tablet,delayed 20 mg PO DAILY 06/18/25 06/18/25 06/17/25 History
release (Protonix)
potassium chloride 20 mEq 20 meq PO DAILY 06/18/25 06/18/25 06/17/25 History
tablet,extended release
therapeutic multivitamin 1 tab PO DAILY 06/18/25 06/18/25 06/17/25 History
Review of Systems
-
Unable to Obtain full review of systems at this time due to: Acuity
Vitals / Labs / Diagnostic Testing
Vital Signs
Temp Pulse Resp BP Pulse Ox
99.1 F 118 26 146/88 95
06/19/25 15:00 06/19/25 15:00 06/19/25 15:00 06/19/25 15:00 06/19/25 15:00
Lab Data
06/19/25 15:22
06/19/25 15:20
Laboratory Results
06/19/25
15:11
pH 7.33 L
pCO2 63 H
pO2 129 H
HCO3 33.2 H
O2 Delivery Level
Microbiology
06/19/25 10:54 Pleural Fluid Gram Stain - Preliminary
Diagnostic Testing:
Physical Exam
-
HEENT: Normocephalic
Cardiovascular: Irregular Rhythm, Murmur and Other (JVD present)
Respiratory: Non-Labored Respirations
GI: Soft and Non Distended
Neurology: Awake and Alert
Skin: Warm
General: Comfortable and Other (Cachectic)
Assessment
-
84-year-old woman with past medical history noted. Came to the hospital complaining of swallowing difficulty. Also shortness of breath. Found to have bilateral pleural effusions, findings suggestive of esophageal impaction.
Underwent right thoracentesis 06/19/2025. Critical care consulted for change in mental status, mild hypercapnia.
Transferred to the critical care unit 06/19/2025
Change in mental status: Lethargy/unresponsiveness
? Toxic metabolic encephalopathy
CT head 06/19/2025
Acute on chronic hypercapnic/hypoxemic respiratory failure
CT chest: Moderate to large bilateral pleural effusion/diffuse esophageal dilatation with extension to the esophagogastric junction. Concern for neoplasia.
Moderate to large hiatal hernia.
Moderate bilateral pleural effusions-suspect related to volume overload-acute on chronic heart failure. Preserved ejection fraction. Valvular in etiology
Dysphagia:-Recurrent esophageal food impaction
History of atrial fibrillation: Per CAT scan report lack of opacification of the left atrial appendage suggest thrombus.
Conditions present prior admission:
Hypertension
Hyperlipidemia
GERD
Peripheral arterial disease
Previous history of CVA
Chronic hypoxemic respiratory failure on 2 L
Chronic hypercapnic respiratory failure: On trilogy ventilator-follows up with Dr. Rocha
History of? Asthma on DuoNeb 2-3 times a day.
Heart failure with preserved ejection fraction
Severe aortic stenosis/moderate mitral stenosis-patient declined evaluation in the outpatient setting per notes.
ECHO -08/27/24: LVEF 70%, Severe LA enlargement, mitral stenosis and severe . Pulmonary hypertension. Moderate TR.
History of coronary artery disease
Atrial fibrillation
History of Schatzki ring with prior food impaction and EGDs.
Never smoker
Assessment and plan:
Daughter at the bedside, mental status improved and back to her usual.
Is unclear whether she got some sedation after thoracentesis. Mental status deteriorated after she went for thoracentesis.
-
CT head noted: Suspect old stroke.
No evidence for hemorrhage
Mental status improved, able to move extremities, following commands.
Continue to monitor mental status-
-
Acute on chronic hypercapnic respiratory failure. Mild decompensation.
Continue oxy supplementation to maintain pulse ox above 90%. Usually uses 2 L of oxygen.
I am reluctant to use positive pressure/BiPAP as the patient has likely esophageal obstruction and food impaction. Increases risk for aerophagia and aspiration.
I have discussed this with daughter and she is agreeable.
She uses a trilogy ventilator at home and she has not been using it for a few days.
Hopefully thoracentesis improves pulmonary mechanics.
Avoid any sedatives
May use BiPAP 12/5 if patient becomes lethargic at night.
-
I did discuss with patient at the bedside regarding possible intubation and CPR. She would not want to be that aggressive.
CODE STATUS will be updated to DNR.
-
Clinical picture with bilateral pleural effusions, increased proBNP-history of atrial fibrillation with intermittent tachycardia. Suspect acute on chronic heart failure with preserved ejection fraction there is significant valvular disease.
In the past she opted for medical management
Cautious diuresis
To expedite improvement if patient has increased work of breathing can opt to perform thoracentesis and the other size.
Consider cardiology evaluation.
Anticoagulation currently on hold.
-
Patient has been losing weight more than 20 to 30 pounds in the last year due to multiple medical issues including swallowing dysfunction
Muscle mass loss is significant and also impairing breathing capacity.
-
History of asthma: Not bronchospastic.
Patient is a never smoker-does not have COPD.
Okay to continue with nebulizer-she was placed on budesonide.
Limit beta agonist as the patient is tachycardic and has a history of atrial fibrillation.
-
N.p.o.
Head of the bed elevation
-
Prognosis is guarded.
-
Critical care statement: A total of 35 minutes of critical care time was provided for this patient today. This includes management of unstable vital signs, evaluation of the patient at bedside, reviewing the patient's pertinent medical records
including ventilator settings, arterial blood gases, radiographs, microbiology, laboratory evaluations and discussion with primary team, critical care nursing, and respiratory therapy.
Data Reviewed
-
Radiology: Image personally visualized and interpreted and Report reviewed by me
CT Scan: Image personally visualized and interpreted and Report reviewed by me
Medical Tests (Nuc Med, Echo etc): Report reviewed by me
Labs: Labs reviewed by me, Discussed with Physician and Discussed with Family
Old Records: Reviewed
Critical Care Time (in minutes): 35
--- NOTE | 2025-06-19 16:07 | CM ---
Patient was admitted to 4E, went to CT scan and transferred to ICU at this time for intubation.
--- NOTE | 2025-06-19 16:30 | CM ---
Patient was admitted on 06/18/25 to 4E, went to CT scan today and transferred to ICU at this time.
--- NOTE | 2025-06-19 16:31 | CM ---
Pt transferred to ICU prior to IA being done.
--- NOTE | 2025-06-19 16:48 | PTCARENOTE ---
Pt upgraded to IMU status after found unresponsive/min responsive on 4E. Pt taken to CT head. Upon arrival in ICU pt A&O to person, place, situation. Afib noted 110-120s. MAP >65. Tachypnea ~30, SpO2 97% on 2L NC. Pt states feels a little SOB at
rest. Lungs Diminished throughout, crackles RLL. Incontinent bowel (smear) and bladder. R thoracentesis site CDI. Sacral foam in place. 22G RFA. Family at bedside. Updated by Senior [employer] Consultant. Call julio within reach.
[2025-06-19] MEDS: LASIX 40 MG IV (17:14)
[2025-06-19 18:45] LABS: APTT 28.5 Sec (23.4-35.0)
[2025-06-19] MEDS: HEPARIN 25000 UNITS/250 ML IV (18:50)
[2025-06-19] MEDS: LOPRESSOR 5 MG IV (20:20)
--- NOTE | 2025-06-19 23:30 | PTCARENOTE ---
milk of molasses enema given per order. prior to admin, pt incontinent large amt soft/formed stool. additional small BM after enema. no further changes in assessment.
[2025-06-20] VITALS (36 sets, daily range): BP systolic 90–157; BP diastolic 49–114; PULSE 114; O2SAT 97; BMI 18.2
[2025-06-20] MEDS: NSS IV (00:35)
[2025-06-20 01:53] LABS: Hematocrit 38.6 % (37.0-47.0); Hemoglobin 12.3 g/dL (12.0-16.0); Mean Corp Hgb Conc. 31.9 g/dL (33.0-37.0); Mean Corpuscular Volume 96.3 fL (81.0-99.0); Nucleated Red Blood Cells % 0 %; Platelet Count 253 10^3/uL (130-400); Red Cell Dist. Width 16.7 % (11.5-14.5)
[2025-06-20 02:04] LABS: APTT 58.6 Sec (23.4-35.0)
[2025-06-20 03:06] LABS: ALT (SGPT) 16 U/L (0-35); AST (SGOT) 23 U/L (14-36); Albumin 3.2 g/dl (3.5-5.0); Alkaline Phosphatase 58 U/L (38-126); Blood Urea Nitrogen 20 mg/dl (7-17); Calcium 8.6 mg/dl (8.4-10.2); Carbon Dioxide 37 mmol/L (22-30); Chloride 103 mmol/L (98-107); Estimated Creatinine Clearance 53 ml/min; Glucose 84 mg/dl (70-99); LDH 190 U/L (120-246); Magnesium 1.9 mg/dl (1.6-2.3); Potassium 3.6 mmol/L (3.5-5.1); Sodium 145 mmol/L (135-145); Total Protein 5.8 g/dl (6.3-8.2); eGFR > 60.00
[2025-06-20] MEDS: PULMICORT 0.5 MG INH ×2 (07:19→20:21)
[2025-06-20] MEDS: VENTOLIN NEBULES 2.5 MG INH ×2 (07:19→20:21)
[2025-06-20] MEDS: PROTONIX IV 40 MG IV (07:30)
[2025-06-20] MEDS: LASIX 40 MG IV ×2 (07:30→16:04)
[2025-06-20] MEDS: NSS (PRESERVATIVE FREE) 10 ML IV (07:30)
--- NOTE | 2025-06-20 07:40 | W.PN.HOSP.TC ---
Today's Communication/Plan
-
See plan
Assessment / Plan
Assessment / Plan
Physical Exam
General: Not in acute distress
HEENT: Normocephalic, Oxygen (Chronic 2 L nasal cannula)
Respiratory: Decreased breath sounds bilaterally
Cardiac: S1/S2; Irregular Rhythm
GI: Soft, Non Tender, Non Distended, Normal Bowel Sounds
Musculoskeletal: No Cyanosis and No Edema
Skin: Warm and Dry
Neuro: Alert and Awake, Responding to questions
Psych: Calm
Assessment/Plan
84-year-old female past medical history of esophageal food impaction prior disimpaction, Schatzki's ring, atrial fibrillation on Eliquis, CAD status post stents chronic HFpEF on 2L oxygen, aortic stenosis, COPD, GERD, hypertension, diabetes,
hyperlipidemia, presenting with trouble swallowing. Had similar symptoms previously in November 2024 when she had food impaction. Also increased shortness of breath. Initial vital signs showed systolic blood pressure 150s to 160s. Heart rate up to 116
bpm. Labs unremarkable. Patient with recurrent esophageal food impaction. IV fluids and glucagon given without improvement. NPO. Hold Eliquis. GI consulted and recommended CT chest.
#Dysphagia concern for esophageal food impaction
#History of esophageal food impaction November 2024 requiring EGD
#History of Schatzki's ring
- Okay to start pureed diet as per speech
- CT chest with diffuse esophageal dilation which extends to the esophagogastric junction with possible neoplasia present -- but GI says that no neoplasia was present on recent EGD earlier this year
- GI consulted, patient is a high risk for any procedure involving anesthesia -- it would therefore be difficult to place a jejunal feeding tube, and she also has a significant hiatal hernia which would make her not a candidate for a
feeding tube -- would be very high aspiration risk
#Profound Lethargy on 06/19/25
- NOW IMPROVED
- ABG showed hypercapnia, but not high enough to cause mental status changes
- Spoke with rn disease management given serious concern regarding airway protection, patient transferred to ICU on 06/20/25
- Initially was thought to not be a great idea to use positive pressure/BiPAP as the patient has likely esophageal obstruction and food impaction -- increases risk for
aerophagia and aspiration, but may use BiPAP 12/5 if patient becomes lethargic at night
- However, now that the patient is more stable, can start low-level BiPAP at night with pressures of 12/5.
- Patient is on trilogy ventilator at home
- Avoid sedatives
- Per rn disease management, patient can be monitored in IMU but should remain in IMU/ICU floor
- Avoid any sedatives
- CT head with right cerebellar lesion, possible subacute infarct, also old stroke as well
- Patient's mental status improved after going to ICU
#Moderate to large bilateral pleural effusions on CT Chest
-Suspected from CHF
-IR consulted, performed RIGHT thoracentesis on 06/19/25, performed thoracentesis, yielding 1600cc of clear gold pleural fluid
-IR performed LEFT thoracentesis on 06/20/25, yielding 1050 cc of clear gold pleural fluid
#Bilateral Pneumonia? On Chest X-Ray 06/20/25
-In the absence of leukocytosis and fever, okay to observe for now without antibiotics
#Right adrenal gland mass
#Small left adrenal gland mass
-Was present on previous imaging
-Outpatient follow-up
#Lack of opacification of the left atrial appendage, suspicious for thrombus on CT Chest imaging
-Appreciate cardio
-Continue Heparin Drip -- spoke on 06/20/[address] Rendon (pre fabricator) and he said that the cardiac/ACS protocol Heparin Drip is the correct one for any possible SAIRA thrombus (if present) and A-Fib
#Small to moderate hiatal hernia
#Permanent A-fib
- Tachycardic with A-Fib on 06/19/25
- If patient tolerates oral diet today, will resume PO meds -- PO Cardizem and Metoprolol this weekend
- Monitor heart rates clinically for now; start Cardizem drip if heart rates remain elevated (if blood pressure allows).
- As needed metoprolol 5 mg IV heart rate> 120
- Hold Eliquis given strict NPO
- Continue Heparin Drip in lieu of Eliquis given high risk of stroke, with history of strokes
#Type 2 Diabetes Mellitus
-Accu-Cheks with SSI
-IV dextrose as needed blood sugar<70
#Coronary Artery disease status post stenting
-Hold current atorvastatin, metoprolol, diltiazem -- will resume if patient is tolerating PO
#Acute on Chronic CHF preserved EF
- ProBNP was checked during patient's profound lethargy on 06/19/25, and it was very specific for acute CHF at 5000+
- Continue IV Lasix 40 mg BID, which was started on 06/19/25 -- may need to reduce or hold the Lasix if patient's blood pressure drops
- Will consult cardiology tomorrow
#Severe Aortic Stenosis/Moderate Mitral Stenosis
- Conservative management for valvular heart disease; patient/family have previously declined TAVR in setting of high anesthesia risk, and she is now a poor candidate at this point.
#Chronic hypoxic respiratory failure on chronic 2 L nasal cannula
-Continue albuterol, budesonide
-Patient uses a Trilogy ventilator at home but has not used it for a few days
-Limit beta agonist (e.g. albuterol) as the patient is tachycardic and has a history of atrial fibrillation
-Start low-level BiPAP at night with pressures of 12/5
#History of Asthma
#Constipation on Abdominal X-Ray
-Milk of Molasses 500 cc enema given overnight 06/19-06/20 with good bowel movement
#Hypertension
-Hold diltiazem and metoprolol but will resume if tolerating PO
#Hyperlipidemia
-Hold statin but will resume if tolerating PO
#GERD
-IV PPI
#Anxiety
-Hold paroxetine
PAD
CVA
Right cerebellar hemisphere lesion, possible old infarct on CT Head
Left occipital lobe old stroke on CT Head
Failure to Thrive
-Patient has been losing weight more than 20 to 30 pounds in the last year due to multiple medical issues including swallowing dysfunction
-Muscle mass loss
DVT Prophylaxis: Lovenox
Code Status: DNR/DNI (patient confirmed that those are her wishes)
I spoke to and updated patient's daughter on 06/19/25 and 06/20/25; I answered all of her questions and concerns to satisfaction.
Anticipated Discharge: > 48 hours
Subjective/Interval History
-
Date of Service: June 20, 2025
Patient was seen and examined. She was doing better today, more alert and interactive.
Objective Data
-
Labs:
Laboratory Results
06/20/25 06/20/25 06/20/25
01:39 02:30 07:25
WBC 7.7
Hgb 12.3
Hct 38.6
Plt Count 253
APTT 58.6 H Pending
Sodium Cancelled 145
Potassium Cancelled 3.6
Chloride Cancelled 103
Carbon Dioxide Cancelled 37 H
BUN Cancelled 20 H
Creatinine Cancelled 0.5 L
Glucose Cancelled 84
Calcium Cancelled 8.6
Total Bilirubin Cancelled 0.9
AST Cancelled 23
ALT Cancelled 16
Alkaline Phosphatase Cancelled 58
Vital Signs:
Vital Signs
Temp Pulse Resp BP Pulse Ox
97.7 F 78 18 143/94 96
06/20/25 02:48 06/20/25 07:30 06/20/25 07:21 06/20/25 07:30 06/20/25 07:21
I&O
06/19/25 06/20/25 06/21/25
06:59 06:59 06:59
Intake Total 76 / 76
Balance
--- NOTE | 2025-06-20 08:00 | PTCARENOTE ---
Received pt. @ change of shift. Drowsy, awakens to verbal stim; ox2, forgetful to time; reoriented. Afib on monitor; murmur present. SpO2 99% on 1LNC. Auscultated dim breath sounds @ bases L>R. Hypoactive BS, abd soft/nt. Inc b/b. BM s/p enema
overnight. 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 Purewick in place. # 22 R FA w heparin gtt- see flow sheet. # 20 L wrist patent, dressing c/d/i PTT drawn and sent to lab, awaiting results. AM hygiene provided. Pt. repositioned per protocol. Bed
alarm active. Call julio in reach.
[2025-06-20 08:01] LABS: APTT 115.3 Sec (23.4-35.0)
--- NOTE | 2025-06-20 08:20 | W.PN.INTV ---
Today's Communication / Plan
Recommendations
- Molasses/milk enema today 300mL
- IMU downgrade
- EGD decisionmaking per GI
- Continue IV PPI
- Continue 40 mg IV Lasix twice daily (patient takes 80 mg p.o. daily furosemide)
- May consider L-sided therapeutic thoracentesis if patient has worsning WOB
- Discuss restarting nightly bipap with patient today
- Continue albuterol sulfate and budesonide inhalers (home meds)
- Continue 2 L O2 NC, goal O2 sat > 90%
- Cards following, appreciate recs
Assessment
-
Chloe Crenshaw is an 84-year-old F with a PMH notable for Schatzki's ring, chronic dysphagia c/b esophageal food impaction (s/p EGD disimpaction November 2024), GERD, A-fib (on Eliquis), CAD (s/p stents), HFpEF, , asthma, home 2L O2 requirement, HTN, &
DM who presented 06/18 with trouble swallowing liquids for several days and progressive dyspnea, found to have diffuse esophageal dilation to EG junction with EG junction irregularity & increase in bilateral pleural effusions on CT imaging.
Course: Patient underwent R thoracentesis on 06/19. Following thora, critical care was consulted for change in mental status with mild hypercapnia. Patient was transferred to critical care unit on 06/19.
#Acute on chronic hypercapnic/hypoxemic respiratory failure
#Bilateral pleural effusions
#Chronic 2L O2
#HFpEF with
CT chest on 06/18: 'Moderate to large bilateral pleural effusion/diffuse esophageal dilatation with extension to the esophagogastric junction. Concern for neoplasia.' Last echo (08/27/24): 'LVEF 70%, Severe LA enlargement, mitral stenosis and severe
. Pulmonary hypertension. Moderate TR.' Current acute on chronic respiratory failure and bilateral pleural effusions most likely secondary to volume overload in the setting of acute on chronic HFpEF with valvular disease. S/p right-sided
thoracentesis on 06/19 (drained 1600cc of clear gold pleural fluid, transudative). ProBNP elevated to 5850.
06/19: pH 7.33, pCO2 63, bicarb 33.2
06/20: Serum bicarb 37; BP 143/94, HR 78, RR 18, 99% on 2 L O2, afebrile; fluid balance+ 92 mL.
- Continue 40 mg IV Lasix twice daily (patient takes 80 mg p.o. daily furosemide)
- May consider L-sided therapeutic thoracentesis if patient has worsning WOB
- Discuss restarting nightly bipap with patient today
- Continue albuterol sulfate and budesonide inhalers (home meds)
- Continue 2 L O2 NC, goal O2 sat > 90%
- Cards following, appreciate recs
#Dysphagia
#Concern for food impaction
#History of Schatzki's ring
Patient with history of recurrent food impactions, with last one in November 2024 requiring EGD disimpaction. Patient on pur�ed diet at home. Patient with multiple days of worsening inability to swallow, including liquids, leading up to presentation.
CT imaging on 06/18 demonstrated esophageal dilation to EG junction with irregularity of EG junction. S/p glucagon yesterday.
- Decision about EGD per GI team
- 40 mg IV PPI daily
- GI following, appreciate recs
#AMS, improving
Primary team noted patient lethargy/unresponsiveness return from thoracentesis on 06/19. CT head on 06/19 demonstrated: 'There is a small 8 mm focus of decreased density within the right cerebellar hemisphere, not definitely present on examination of
September 19, 2024. This has close to CSF density, suggestive of an old infarct. As it is new since prior CT, this could possibly represent a subacute infarct. No ICH.' AMS likely in setting of hypercapnia, respiratory failure, combined with recovery
sedation during thoracentesis procedure. Per java swing developer note on 06/19, mental status improved by the afternoon. Patient was able to follow commands.
Today: better per daughter; answering Qs, states name
- Continue to monitor mental status, management of other issues as above
#Fecal impaction
CT abdomen on 06/19 demonstrated likely fecal impaction. Constipation may also lead to AMS in elderly hospitalized patients. No bowel regimen at home.
- Molasses/milk enema today 300mL
#Chronic - mgmt per primary team & cards
- A-fib w c/f SAIRA thrombus; on Eliquis and diltiazem, holding - per cards, may restart diltiazem if HR remains elevated
- CAD s/p stents
- HTN
- DM
- GERD
- HLD
- PAD
- GERD
#Global
- DVT PPx: IV heparin
- Diet: N.p.o.
- Code: DNR
- Dispo: Downgrade to IMU today
Subjective Dataa
Subjective Data
Date of Service:
Date of Service: June 20, 2025
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
Subjective:
Per daughter at bedside, pt with improved mental status today. Pt able to state her full name, answer Qs. Denies any pain or SOB. Per daughter, patient's work of breathing looks c/w baseline.
Review of Systems
General: Other (pt with no complaints, lethargic )
Objective Data
Data Reviewed
Vital Signs / I&O / Oxygen:
Vital Signs
Temp Pulse Resp BP Pulse Ox
97.7 F 78 18 143/94 99
06/20/25 02:48 06/20/25 07:30 06/20/25 07:21 06/20/25 07:30 06/20/25 07:49
Intake and Output
06/19/25 06/20/25 06/21/25
06:59 06:59 06:59
Intake Total
Balance
SaO2 99
Nasal Cannula flow liters per 1
minute
Physical Exam
General: Comfortable and Other (elderly, frail appearing)
HEENT: Normocephalic and Anicteric
Cardiovascular: Regular Rhythm, Murmur and Peripheral Edema (none)
Respiratory: Clear, Wheeze (not audible), Non-Labored Respirations and Accessory Resp Muscle Use (none)
GI: Soft, Non Distended and Non Tender
Neurology: Awake and Other (answers Qs but lethargic )
Skin: Warm and Dry
Labs/Micro/Reports
Lab Data
06/20/25 01:39
06/20/25 02:30
Laboratory Results
06/19/25 06/19/25 06/20/25
15:11 18:26 01:39
APTT 28.5 58.6 H
pH 7.33 L
pCO2 63 H
pO2 129 H
HCO3 33.2 H
O2 Delivery Level
06/20/25
07:25
APTT 115.3 H
pH
pCO2
pO2
HCO3
O2 Delivery Level
Microbiology
06/19/25 10:54 Pleural Fluid Gram Stain - Preliminary
--- NOTE | 2025-06-20 08:36 | CON.CAR ---
Consultation
Consultation Request
Date/Time Consultation Requested: 06/20/2025
Date/Time Consultation Performed: 06/20/2025
Requesting Provider: Dr. Hay
Performing Provider: Colby Rendon
Reason for Consultation: CHF
Medical History
-
Chief Complaint: Unable to swallow
History of Present Illness:
Chloe Tirado is an 84 year old female (known to Dr. Jorge, her primary Landscape Account Manager) with coronary artery disease (RCA '05 & LAD '12), permanent atrial fibrillation, CVA (2018), chronic HFpEF, hypertension, severe aortic stenosis, moderate mitral
stenosis, and dyslipidemia presents with hypercapnic respiratory failure. Cardiology consulted for CHF, AF/RVR, and CT of the chest showed lack of opacification in the left atrial appendage suspicious for thrombus. The patient is a poor historian
and is unable to communicate clearly, partially obtunded still.
Past Medical History
Past Medical History: Arrhythmias (permanent atrial fibrillation [on apixaban]), CAD, CHF, CVA, GERD, HTN, NIDDM and Valvular Disease (Severe aortic stenosis, moderate mitral stenosis)
Past Surgical History: Appendectomy, Gynecological, Orthopedic and Tonsilectomy
Social History
Tobacco: Non-Smoker
Alcohol: None
Drug: None
Employment: Retired
Family History
Family History: Reviewed & Not Pertinent
Allergies / Home Medications
Allergy/AdvReac Type Severity Reaction Status Date / Time
cat dander Allergy ITCHY EYES Verified 06/18/25 14:58
house dust Allergy ITCHING/SNE Verified 06/18/25 14:58
EZING
mold Allergy ITCHING/SNE Verified 06/18/25 14:58
EZING
pollen extracts Allergy HAYFEVER-IT Verified 06/18/25 14:58
ALLISON
Sulfa (Sulfonamide Allergy Rash Verified 06/18/25 14:58
Antibiotics)
sulfisoxazole Allergy Rash Verified 06/18/25 14:58
trimethoprim Allergy Rash Verified 06/18/25 14:58
�Medication �Instructions �Recorded �Confirmed �Type
paroxetine HCl 20 mg tablet 20 mg PO DAILY Mental 07/27/10 06/18/25 History
Health/Anxiety
calcium 500 mg (as 1 tab PO BID Supplement 06/13/18 06/18/25 History
carbonate)-vitamin D3 5 mcg (200
unit) tablet (Oyster Shell
Calcium-Vitamin D3)
acetaminophen 500 mg tablet 1,000 mg PO Q6HPRN PRN mild pain 10/28/19 06/18/25 History
(Tylenol Extra Strength)
ipratropium 0.5 mg-albuterol 3 mg 3 ml inhalation R TID 10/28/19 06/18/25 History
(2.5 mg base)/3 mL nebulization
soln
polyvinyl alcohol-povidone (PF) 1 drops BOTH EYES DAILYPRN PRN dry 10/28/19 06/18/25 History
1.4 %-0.6 % eye drops in a eyes/irritation
dropperette (Refresh Classic (PF))
folic acid 1 mg tablet 1 mg PO DAILY 11/09/19 06/18/25 Rx
furosemide 80 mg tablet 80 mg PO DAILY #30 tabs 11/09/19 06/18/25 Rx
budesonide 0.5 mg/2 mL suspension 0.5 mg inhalation R BID 09/03/20 06/18/25 History
for nebulization (Pulmicort) Lung/breathing issues
albuterol sulfate 2.5 mg/3 mL 2.5 mg inhalation R BID 06/18/25 06/18/25 History
(0.083 %) solution for nebulization
apixaban 2.5 mg tablet (Eliquis) 2.5 mg PO BID 06/18/25 06/18/25 History
atorvastatin 80 mg tablet (Lipitor) 80 mg PO QPM 06/18/25 06/18/25 History
diltiazem HCl 120 mg capsule,24 120 mg PO DAILY 06/18/25 06/18/25 History
hr,extended release
pantoprazole 20 mg tablet,delayed 20 mg PO DAILY 06/18/25 06/18/25 History
release (Protonix)
potassium chloride 20 mEq 20 meq PO DAILY 06/18/25 06/18/25 History
tablet,extended release
therapeutic multivitamin 1 tab PO DAILY 06/18/25 06/18/25 History
Review of Systems
-
Unable to obtain full review of systems at this time due to: Other (Partially obtunded, nonverbal)
History Source: Family (Daughter at bedside), Physician (Primary Hospitalist at bedside) and Other (Medical record)
Physical Exam
Vital Signs
Temp Pulse Resp BP Pulse Ox
97.7 F 78 18 143/94 99
06/20/25 02:48 06/20/25 07:30 06/20/25 07:21 06/20/25 07:30 06/20/25 07:49
Lab Results
06/20/25 01:39
06/20/25 02:30
Troponin I 0.027 ng/ml 06/19/25 15:21
Dru-W-Xzuhclhptep Pept 5850 pg/ml 06/19/25 15:21
Physical Exam
General: No Apparent Distress and Other (Partially obtunded, partially nonverbal)
HEENT: Anicteric
Respiratory: Other (Decreased bibasilar breath sounds, mild rhonchi)
Cardiac: S1/S2, Irregular Rhythm and Murmur (3/6 systolic)
Breast: Deferred by me
GI: Soft
Rectal: Deferred by Provider
Musculoskeletal: No Edema
Skin: Warm and Dry
Neuro: Awake
Psych: Calm
Impression / Plan
-
IMPRESSION/PLAN: 84 year old female (known to Dr. Jorge, her primary Landscape Account Manager) with coronary artery disease (RCA '05 & LAD '12), permanent atrial fibrillation, CVA (2018), chronic HFpEF, hypertension, severe aortic stenosis, moderate mitral
stenosis, and dyslipidemia presents with hypercapnic respiratory failure. Cardiology consulted for CHF, AF/RVR, and CT of the chest showed lack of opacification in the left atrial appendage suspicious for thrombus. The patient is a poor historian
and is unable to communicate clearly, partially obtunded still.
Possible SAIRA thrombus:
- Uncertain as whether he has been compliant with Eliquis at home, but the patient's daughter states that she gives the patient's her medications daily, but did spit it up yesterday.
- Continue heparin drip; this is the treatment for atrial fibrillation and the possible SAIRA thrombus.
Atrial fibrillation with rapid ventricular response
- Heart rate elevated at times, but improved today.
- Monitor heart rates clinically for now; start Cardizem drip if heart rates remain elevated (if blood pressure allows).
- [id number]: score 8 (Heart failure, age 75 or more, Diabetes Mellitus, prior Stroke/TIA, Vascular disease, female gender).
- IV heparin as above.
Acute on chronic HFpEF:
- Significant bilateral pleural effusions.
- BNP elevated at 5850 and bilateral pleural effusions; no edema and minimal rhonchi on examination.
- Can continue Lasix 40 mg IV twice daily for now; monitor blood pressure (hypotension); patient typically takes Lasix 40 mg PO daily at home.
Esophageal dilatation/dysphagia:
- Concern for esophageal neoplasia on CT of the chest.
- Workup as per GI; can proceed from a cardiac standpoint for any scoping if deemed appropriate (relatively moderate to high risk given severe and comorbidities).
Pleural effusions:
- Successful right thoracentesis with 1600 cc removed 06/19/2025.
Severe /moderate MS:
- Conservative management for valvular heart disease; patient/family have previously declined TAVR, and she is now a poor candidate at this point.
Coronary artery disease status-post remote PCI:
- Relatively stable.
- Resume statin when able.
NIDDM:
- Management as per primary team.
Data Reviewed
-
EKG: Tracing Personally Visualized and interpreted (Telemetry: Atrial fibrillation)
CT Scan: Report Reviewed by me (06/18/2025: Bilateral pleural effusions, esophageal dilatation with concern for neoplasia, possible SAIRA thrombus.)
Medical Tests (Nuc Med, Echo etc): Report Reviewed by me (Transthoracic echocardiogram (08/27/2024: LVEF 70%; moderate mitral stenosis; severe .)
Labs: Labs Reviewed by me
Critical Care Time (in minutes): 60
--- NOTE | 2025-06-20 10:55 | PTOTSP ---
Speech Language Pathology
Pt seen for clinical bedside swallow evaluation. Known to [facility] from outpatient therapy as well as VSE completed 06/15/18 with no penetration/aspiration. Daughter present at bedside, who is caregiver. Pt mostly consumes liquids at homes, but also
eats pureed items. The most texture she will consume is small pieces of fruit within yogurt. P.O. trials of puree and thin liquids provided. Adequate oral phase with limited consistencies trialed. No overt signs of aspiration. No immediate
esophageal symptoms reported.
Recommend:
(1) IDDSI Level 4 (Puree) and Thin Liquids if cleared by GI
(2) Esophageal precautions
(3) Meds as tolerated
(4) [facility] to sign off
[2025-06-20] MEDS: KCL 270 MEQ IV (11:17)
--- NOTE | 2025-06-20 13:53 | W.PN.GI.CBS2 ---
Today's Communication / Plan
-
Sppech and Swallow eval
aspiration precautions
Assessment / Plan
-
84yo female with hx afib on Eliquis, CVA, CHF, GERD, HTN, NIDDM, asthma, cardiac stents, severe ,mild AR, mild/mod TR per echo 2023, PAD, anxiety and prior food impaction presents to ER last PM with difficulty swallowing for several days with
even liquids. Per patent and family has been a chronic problem with worsening symptoms. She is also noted with progressive dyspnea and decreased pulse ox prior to admission. In review of chart she had multiple EGD over the years with concern for
esophageal dysmotility disorder, paraesophageal hernia, food impactions, HH, schatzki's ring with dilation, esophagitis, gastritis with last EGD in 11/2024 with with food in lower third of esophagus, mild severe esophagitis with bleeding,
normal stomach. She was last see by in April and recommended nutritional supplement and account manager employee benefits. Also discussed risks of repeat EGD with dilation and peg tube with concern for last EGD required admission for rapid afib after
procedure. On admission CT noted with diffuse esophageal dilation to EG junction with irregularity at EG junction. moderate to large b/l pleural effusion increased from September. slightly large adrenal gland mass from 2019. sm to moderate HH to
left hemithorax.
-dysphagia with solids and liquids
-hx multiple EGD's with concern for esophageal dysmotility d/o, PEH, food impactions, HH, schatzki's ring with dilation, esophagitis, gastritis
-CT with esophageal dilation
-CT with irregularity to EG junction
-dyspnea with moderate to large b/l effusion
-Afib on Eliquis with hx rapid afib with prior EGD
-hx severe
-wt loss 50 lbs since 2019 and 15 lbs since november
other med problems:
CHF
mild AR, mild/mod TR
CAD prior stent
NIDDM
CVA/TIA
GERD
Asthma
PLAN:
Etiology of dysphagia likely chronic issue with possible esophageal dysmotility-possible achalasias with dilated esophagus vs other
Patient underwent thoracentesis with removal of 1600 cc. After the procedure patient was noted to have change in mental status/lethargy. As per medical team she is feeling better today and arousable.
I had a long discussion with patient's daughter at bedside. Discussed about benefits and risk of repeat EGD versus outpatient esophageal motility study versus alternate feeding options ( PEG ).
last EGD 11/2024 with - no evidence of any upper GI neoplasm
She verbalized understanding and would like to hold off on invasive testing at this point (she understand increased risks with her mother's significant cardiac comorbidities) . She would like her mother to go back on diet as tolerated.
Will recommend speech and swallow eval
Daily calorie count
Continue further management as per medical team/cardiology
Goals of care discussion per medical team
follow up with as outpatient
Total Time Spent with Patient (in minutes): 35
Subjective
Subjective
Date of Service: June 20, 2025
Patient was sleeping. Arousable. Discussed with daughter at bedside
Objective
Data Reviewed
Laboratory Data:
Laboratory Results
06/20/25 01:39
06/20/25 02:30
Laboratory Results
APTT 115.3 Sec (23.4-35.0) H 06/20/25 07:25
Magnesium 1.9 mg/dl (1.6-2.3) 06/20/25 02:30
Total Bilirubin 0.9 mg/dl (0.2-1.3) 06/20/25 02:30
AST 23 U/L (14-36) 06/20/25 02:30
ALT 16 U/L (0-35) 06/20/25 02:30
Alkaline Phosphatase 58 U/L (38-126) 06/20/25 02:30
Vital Signs and I&O:
Vital Signs
Temp Pulse Resp BP Pulse Ox
97.5 F 117 25 118/91 97
06/20/25 11:57 06/20/25 13:00 06/20/25 13:00 06/20/25 13:00 06/20/25 13:00
I&O
06/19/25 06/20/25 06/21/25
06:59 06:59 06:59
Intake Total 52 / 52
Output Total
Balance 76 / 84 51 / 51
Physical Exam
Physical Exam
GI: Soft, Non Distended and Non Tender
[2025-06-20 14:20] LABS: APTT 110.3 Sec (23.4-35.0)
--- NOTE | 2025-06-20 15:09 | PTCARENOTE ---
Pt. assisted OOB w RW x2 to chair; tolerated chair position approx 6H. PT/OT to bedside this AM; during therapy, pt.'s HR and RR noted to be increased while working w therapies, pt. recovered to baseline s/p activity completion. HEALTH ANALYST to bedside
this AM as well; diet advanced per HEALTH ANALYST, GI, and hospitalist; awaiting testing competition today to start diet. Pt. assisted back to bed @ 1400 and placed on L side; ECHO completed @ beside. S/P ECHO, pt. transported down to IR for L thora; awaiting
report from IR. Family @ bedside, updated.
--- NOTE | 2025-06-20 15:22 | CM ---
CM reviewed chart, initial assessment completed by patients daughterAmy.
The patient is an 84 year old female presenting with difficulties swallowing over the past couple of days.
Patient resides with daughter and in a split level home, half a step to enter through garage.
Bedroom on second floor, able to stay on first floor if necessary.
DME includes: RW, transport chair, shower chair, grab bars, O2 through [employer] (has trilogy- CPAP, 2 concentrators one upstairs one downstairs, one inogen)
[facility] in past, no SNF hx.
PCP Ivan Anton, Pharmacy: [facility], confirms prescription coverage.
Daughter undecided if patient/family will want home care upon discharge. Daughter reports she is primary caregiver for patient.
Plan; home with daughter
--- NOTE | 2025-06-20 16:09 | PTCARENOTE ---
received report back from IR; 1050mL clear yellow fluid removed from L lung; band aid c/d/i. Transported via bed back to unit w/out issue; daughter @ bedside updated. Call julio placed back w in reach.
[2025-06-20 16:10] LABS: Body Fluid Second Tech DW
[2025-06-20] MEDS: LOPRESSOR 5 MG IV (17:24)
[2025-06-20 21:23] LABS: APTT 54.3 Sec (23.4-35.0)
--- NOTE | 2025-06-20 22:03 | PTCARENOTE ---
received pt from dayshift, assessments completed. patient alert with periods of confusion, offering no c/o pain or discomfort pt remains on 2lm, purewick intact. heparin gtt increased to 900.
[2025-06-21] VITALS (24 sets, daily range): BP systolic 90–142; BP diastolic 58–90; BMI 18.1
[2025-06-21 04:26] LABS: Hematocrit 35.8 % (37.0-47.0); Hemoglobin 11.5 g/dL (12.0-16.0); Mean Corp Hgb Conc. 32.1 g/dL (33.0-37.0); Mean Corpuscular Volume 99.4 fL (81.0-99.0); Nucleated Red Blood Cells % 0 %; Platelet Count 191 10^3/uL (130-400); Red Cell Dist. Width 16.5 % (11.5-14.5)
[2025-06-21 04:28] LABS: APTT 142.2 Sec (23.4-35.0)
[2025-06-21 05:06] LABS: ALT (SGPT) 10 U/L (0-35); AST (SGOT) 18 U/L (14-36); Albumin 1.9 g/dl (3.5-5.0); Alkaline Phosphatase 38 U/L (38-126); Blood Urea Nitrogen 15 mg/dl (7-17); Calcium 5.7 mg/dl (8.4-10.2); Carbon Dioxide 32 mmol/L (22-30); Chloride 115 mmol/L (98-107); Estimated Creatinine Clearance 50 ml/min; Glucose 50 mg/dl (70-99); Magnesium 1.3 mg/dl (1.6-2.3); Potassium 2.5 mmol/L (3.5-5.1); Sodium 145 mmol/L (135-145); Total Protein 3.9 g/dl (6.3-8.2); eGFR > 60.00
[2025-06-21] MEDS: DEXTROSE 50% SYRINGE 25 GRAMS IV (05:24)
[2025-06-21] MEDS: HEPARIN 25000 UNITS/250 ML IV (05:39)
[2025-06-21] MEDS: MAGNESIUM SULFATE 50 IV (05:44)
[2025-06-21] MEDS: KCL 270 MEQ IV (05:45)
[2025-06-21] MEDS: CALCIUM GLUCONATE 130 MG IV (06:08)
[2025-06-21] MEDS: KCL 40 MEQ PO (06:15)
--- NOTE | 2025-06-21 06:48 | PTCARENOTE ---
am labs critical value, replace K+, mag ca++ - inserted 2 new iv's, d/c L hand iv r/t infiltration. small Bm, changed peter
--- NOTE | 2025-06-21 07:27 | W.PN.HOSP.TC ---
Today's Communication/Plan
-
See plan
Assessment / Plan
Assessment / Plan
Physical Exam
General: Not in acute distress
HEENT: Normocephalic, Oxygen (Chronic 2 L nasal cannula)
Respiratory: Decreased breath sounds bilaterally
Cardiac: S1/S2; Irregular Rhythm
GI: Soft, Non Tender, Non Distended, Normal Bowel Sounds
Musculoskeletal: No Cyanosis and No Edema
Skin: Warm and Dry
Neuro: Alert and Awake, Responding to questions
Psych: Calm
Assessment/Plan
84-year-old female past medical history of esophageal food impaction prior disimpaction, Schatzki's ring, atrial fibrillation on Eliquis, CAD status post stents chronic HFpEF on 2L oxygen, aortic stenosis, COPD, GERD, hypertension, diabetes,
hyperlipidemia, presenting with trouble swallowing. Had similar symptoms previously in November 2024 when she had food impaction. Also increased shortness of breath. Initial vital signs showed systolic blood pressure 150s to 160s. Heart rate up to 116
bpm. Labs unremarkable. Patient with recurrent esophageal food impaction. IV fluids and glucagon given without improvement. NPO. Hold Eliquis. GI consulted and recommended CT chest.
#Dysphagia concern for esophageal food impaction
#History of esophageal food impaction November 2024 requiring EGD
#History of Schatzki's ring
- Okay to start pureed diet as per speech
- CT chest with diffuse esophageal dilation which extends to the esophagogastric junction with possible neoplasia present -- but GI says that no neoplasia was present on recent EGD earlier this year
- GI consulted, patient is a high risk for any procedure involving anesthesia -- it would therefore be difficult to place a jejunal feeding tube, and she also has a significant hiatal hernia which would make her not a candidate for a
feeding tube -- would be very high aspiration risk
#Profound Lethargy on 06/19/25
- NOW IMPROVED SIGNIFICANTLY
- ABG showed hypercapnia, but not high enough to cause mental status changes
- Spoke with snowmaker given serious concern regarding airway protection, patient transferred to ICU on 06/20/25 -- SINCE IMPROVED, DOWNGRADED TO IMU LEVEL OF CARE 06/21/25
- Initially was thought to not be a great idea to use positive pressure/BiPAP as the patient has likely esophageal obstruction and food impaction -- increases risk for
aerophagia and aspiration, but may use BiPAP 08/15 if patient becomes lethargic at night
- Patient is on trilogy ventilator at home
- Avoid sedatives
- Per snowmaker, patient can be monitored in IMU but should remain in IMU/ICU floor
- Avoid any sedatives
- CT head with right cerebellar lesion, possible subacute infarct, also old stroke as well
#Moderate to large bilateral pleural effusions on CT Chest
-Suspected from CHF
-IR consulted, performed RIGHT thoracentesis on 06/19/25, performed thoracentesis, yielding 1600cc of clear gold pleural fluid
-IR performed LEFT thoracentesis on 06/20/25, yielding 1050 cc of clear gold pleural fluid
#Bilateral Pneumonia? On Chest X-Ray 06/20/25
-In the absence of leukocytosis and fever, okay to observe for now without antibiotics
#Right adrenal gland mass
#Small left adrenal gland mass
-Was present on previous imaging
-Outpatient follow-up
#Lack of opacification of the left atrial appendage, suspicious for thrombus on CT Chest imaging
-Appreciate cardio
-Heparin Drip cardiac/ACS protocol started for any possible SAIRA thrombus (if present) and A-Fib
-Now okay to switch to Eliquis 2.5 mg BID, as per cardiology
#Small to moderate hiatal hernia
#Permanent A-fib
- Tachycardic with A-Fib on 06/19/25
- If patient tolerates oral diet today, resumed PO Cardizem but short acting equivalent so that Cardizem can be crushed
- As needed metoprolol 5 mg IV heart rate> 120
- Resumed Eliquis today (and Heparin Drip stopped)
#Type 2 Diabetes Mellitus
-Accu-Cheks with SSI
-IV dextrose as needed blood sugar<70
#Coronary Artery disease status post stenting
-Resume home atorvastatin, diltiazem (short-acting equivalent)
#Acute on Chronic CHF preserved EF
- ProBNP was checked during patient's profound lethargy on 06/19/25, and it was very specific for acute CHF at 5000+
- Continue IV Lasix 40 mg BID, which was started on 06/19/25 -- may need to reduce or hold the Lasix if patient's blood pressure drops
- Cardiology onboard
#Severe Aortic Stenosis/Moderate Mitral Stenosis
- Conservative management for valvular heart disease; patient/family have previously declined TAVR in setting of high anesthesia risk, and she is now a poor candidate at this point.
#Chronic hypoxic respiratory failure on chronic 2 L nasal cannula
-Continue albuterol, budesonide
-Patient uses a Trilogy ventilator at home but has not used it for a few days
-Limit beta agonist (e.g. albuterol) as the patient is tachycardic and has a history of atrial fibrillation
-Stop BiPAP as patient does not want to use it -- can restart trilogy in the outpatient setting.
#History of Asthma
#Constipation on Abdominal X-Ray
-Milk of Molasses 500 cc enema given overnight 06/19-06/20 with good bowel movement
#Hypertension
-Hold diltiazem and metoprolol but will resume if tolerating PO
#Hyperlipidemia
-Hold statin but will resume if tolerating PO
#GERD
-IV PPI
#Anxiety
-Hold paroxetine
PAD
CVA
Right cerebellar hemisphere lesion, possible old infarct on CT Head
Left occipital lobe old stroke on CT Head
Failure to Thrive
-Patient has been losing weight more than 20 to 30 pounds in the last year due to multiple medical issues including swallowing dysfunction
-Muscle mass loss
DVT Prophylaxis: Lovenox
Code Status: DNR/DNI (patient confirmed that those are her wishes)
I spoke to and updated patient's daughter on 06/19/25 and 06/20/25; I answered all of her questions and concerns to satisfaction.
Anticipated Discharge: > 48 hours
Subjective/Interval History
-
Date of Service: June 21, 2025
Patient was seen and examined. No new significant symptoms or complaints.
Objective Data
-
Labs:
Laboratory Results
06/20/25 06/21/25 06/21/25
21:05 03:55 12:00
WBC 5.5
Hgb 11.5 L
Hct 35.8 L
Plt Count 191 D
APTT 54.3 H 142.2 H
Sodium 145 Pending
Potassium 2.5 L* D Pending
Chloride 115 H Pending
Carbon Dioxide 32 H Pending
BUN 15 Pending
Creatinine 0.4 L Pending
Glucose 50 L* Pending
Calcium 5.7 L* D Pending
Total Bilirubin 0.6
AST 18
ALT 10
Alkaline Phosphatase 38
Vital Signs:
Vital Signs
Temp Pulse Resp BP Pulse Ox
98.2 F 99 23 115/71 99
06/21/25 07:07 06/21/25 06:02 06/21/25 06:02 06/21/25 06:02 06/21/25 05:00
I&O
06/20/25 06/21/25 06/22/25
06:59 06:59 06:59
Intake Total 76 / 84 180 / 180
Output Total 801 / 801
Balance 76 / 84 -621 / -621
--- NOTE | 2025-06-21 07:46 | PTCARENOTE ---
0700 Assumed care; patient in bed. On AVAP 480/16/100% SpO2 100%
BP: 111/62 MAP 78 (Right Upper arm ); Normal Sinus Rhythm 87;
AVAP settings changed 480/16/% AtQ960%
Abdomen soft non-tender
Daughter at bedside, update provided
[2025-06-21] MEDS: PULMICORT 0.5 MG INH ×2 (07:52→20:37)
[2025-06-21] MEDS: VENTOLIN NEBULES 2.5 MG INH (07:53)
--- NOTE | 2025-06-21 08:06 | W.PN.CD ---
Today's Communication / Plan
-
Resume Eliquis 2.5 mg p.o. twice daily
Resume diltiazem.
Monitor heart rate.
Check renal panel and dose Lasix according to results.
Ongoing goals of care discussion.
Critical care time 31 minutes.
Impression / Plan
-
IMPRESSION/PLAN: 84 year old female (known to Dr. Jorge, her primary Dental Scheduling Coordinator) with coronary artery disease (RCA '05 & LAD '12), permanent atrial fibrillation, CVA (2018), chronic HFpEF, hypertension, severe aortic stenosis, moderate mitral
stenosis, and dyslipidemia presents with hypercapnic respiratory failure. Cardiology consulted for CHF, AF/RVR, and CT of the chest showed lack of opacification in the left atrial appendage suspicious for thrombus. The patient is a poor historian
and is unable to communicate clearly, partially obtunded still.
Possible SARIA thrombus:
- Uncertain as whether he has been compliant with Eliquis at home, but the patient's daughter states that she gives the patient's her medications daily, but did spit it up yesterday.
- now that taking p.o. will transition to Eliquis. Correct dose is 2.5 mg p.o. twice daily.
Atrial fibrillation with rapid ventricular response
- Currently in rapid ventricular response
- Monitor heart rates clinically for now; resuming diltiazem now that she is taking p.o.
- [id number]: score 8 (Heart failure, age 75 or more, Diabetes Mellitus, prior Stroke/TIA, Vascular disease, female gender).
- Resuming Eliquis 2.5 mg p.o. twice daily
Acute on chronic HFpEF:
- Significant bilateral pleural effusions.
- BNP elevated at 5850 and bilateral pleural effusions; no edema and minimal rhonchi on examination.
- Can continue Lasix 40 mg IV twice daily for now, given significant hypokalemia will hold a.m. dose until this has been repleted. Discussed with ICU nursing she will call me in the afternoon with that value so we can dose her Lasix appropriately.
- monitor blood pressure (hypotension); patient typically takes Lasix 40 mg PO daily at home.
Esophageal dilatation/dysphagia:
-d/w GI patient doesn't want invasive evaluation, will start refeeding
Pleural effusions:
- Successful right thoracentesis with 1600 cc removed 06/19/2025.
Severe /moderate MS:
- Conservative management for valvular heart disease; patient/family have previously declined TAVR, and she is now a poor candidate at this point.
-echo below
- Reviewed with daughter, patient and , there is no medication for this disease.
Coronary artery disease status-post remote PCI:
- Relatively stable.
- Resume statin when able.
NIDDM:
- Management as per primary team.
Overall prognosis is extremely poor. Patient would be a good candidate for hospice or in the very least palliative care.
Subjective:
She is feeling okay. Denies chest pain or shortness of breath.
Data:
TTE 06/20/25:
SUMMARY
1. Normal biventricular size and systolic function, with no regional wall motion abnormalities.
2. Extensive calcification of the mitral valve, mitral valve annulus and subvalvular apparatus. Moderate mitral stenosis. Moderate mitral regurgitation (may be underestimated in the setting of acoustic shadowing).
3. Severe aortic stenosis. Mild aortic regurgitation.
4. Moderate to severe tricuspid regurgitation with mild pulmonary hypertension.
5. Compared to the prior echo on 08/27/2024, the degree of tricuspid regurgitation has increased from mild to moderate to moderate to severe.
Physical Exam
Vital Signs/Labs
Vital Signs
Temp Pulse Resp BP Pulse Ox
98.2 F 107 20 115/71 100
06/21/25 07:07 06/21/25 07:55 06/21/25 07:55 06/21/25 06:02 06/21/25 07:55
10/10/25 10/11/25 10/12/25
06:59 06:59 06:59
Actual Weight 99 lb 6.856 oz 98 lb 12.273 oz
06/21/25 03:55
APTT 142.2 Sec (23.4-35.0) H 06/21/25 03:55
Magnesium 1.3 mg/dl (1.6-2.3) L 06/21/25 03:55
06/19/25
15:21
[id number] Pept 5850
LAB Results
06/19/25
15:21
Troponin I 0.027
Physical Exam
Constitutional: No acute distress and Other (Cachectic, appears chronically ill, appears older than stated age)
Cardiovascular: Pedal edema is absent, Rhythm/rate is irregular (Tachycardic) and Systolic murmur present
Respiratory: Respiratory effort normal, Lungs clear to auscul., Wheeze Absent and Crackles Absent
GI: Soft, Distention absent and Flat
Neuro/Psych: AO x 3
Data Reviewed
-
Date of Service: June 21, 2025
Medical Decision Making: Review of Case with other Provider (pham Mccullough, [facility] discussion she would be a good candidate for hospice, CCN hold lasix until pm labs)
Medical Tests (PFT, Pathology etc): Discussed with Family (echo showed severe as and mod ms with no good option for treatment)
[2025-06-21] MEDS: PROTONIX IV 40 MG IV (09:14)
[2025-06-21] MEDS: NSS (PRESERVATIVE FREE) 10 ML IV (09:14)
--- NOTE | 2025-06-21 09:23 | PTCARENOTE ---
per order: lasix held until repeat labs 12:00
[2025-06-21] MEDS: LASIX IV (10:15)
[2025-06-21] MEDS: CARDIZEM 30 MG PO ×4 (10:17→22:48)
[2025-06-21] MEDS: THERAGRAN 1 TABLET PO (10:20)
[2025-06-21] MEDS: OSCAL 500 + D 500 MG PO ×2 (10:20→20:19)
[2025-06-21] MEDS: KCL ELIXIR 20 MEQ PO (10:20)
[2025-06-21] MEDS: FOLVITE 1 MG PO (10:20)
--- NOTE | 2025-06-21 11:18 | W.PN.INTV ---
Today's Communication / Plan
Recommendations
Will discontinue BiPAP-patient does not want to use it. Can restart trilogy in the outpatient setting.
Mental status back to baseline-avoid sedatives.
Aspiration precautions
Continue diuresis
No need for additional thoracentesis
Continue oxygen supplementation-at baseline
Continue with PPI
Diet per GI
No additional critical care recommendations
Sign off
Assessment
-
Chloe Crenshaw is an 84-year-old F with a PMH notable for Schatzki's ring, chronic dysphagia c/b esophageal food impaction (s/p EGD disimpaction November 2024), GERD, A-fib (on Eliquis), CAD (s/p stents), HFpEF, , asthma, home 2L O2 requirement, HTN, &
DM who presented 06/18 with trouble swallowing liquids for several days and progressive dyspnea, found to have diffuse esophageal dilation to EG junction with EG junction irregularity & increase in bilateral pleural effusions on CT imaging.
Course: Patient underwent R thoracentesis on 06/19. Following thora, critical care was consulted for change in mental status with mild hypercapnia. Patient was transferred to critical care unit on 06/19.
#Acute on chronic hypercapnic/hypoxemic respiratory failure
#Bilateral pleural effusions-transudate.
#Chronic 2L O2
#HFpEF with
CT chest on 06/18: 'Moderate to large bilateral pleural effusion/diffuse esophageal dilatation with extension to the esophagogastric junction. Concern for neoplasia.' Last echo (08/27/24): 'LVEF 70%, Severe LA enlargement, mitral stenosis and severe
. Pulmonary hypertension. Moderate TR.' Current acute on chronic respiratory failure and bilateral pleural effusions most likely secondary to volume overload in the setting of acute on chronic HFpEF with valvular disease. S/p right-sided
thoracentesis on 06/19 (drained 1600cc of clear gold pleural fluid, transudative). ProBNP elevated to 5850.
06/19: pH 7.33, pCO2 63, bicarb 33.2
06/20: Serum bicarb 37; BP 143/94, HR 78, RR 18, 99% on 2 L O2, afebrile; fluid balance+ 92 mL.
- Continue diuresis per cardiology and primary team.
- May consider L-sided therapeutic thoracentesis if patient has worsning WOB-currently trying to minimize procedures.
- Discontinue BiPAP patient does not want to use it.
- Continue albuterol sulfate and budesonide inhalers (home meds)
- Continue 2 L O2 NC, goal O2 sat > 90%
- Cards following, appreciate recs
#Dysphagia
#Concern for food impaction
#History of Schatzki's ring
Patient with history of recurrent food impactions, with last one in November 2024 requiring EGD disimpaction. Patient on pur�ed diet at home. Patient with multiple days of worsening inability to swallow, including liquids, leading up to presentation.
CT imaging on 06/18 demonstrated esophageal dilation to EG junction with irregularity of EG junction. S/p glucagon yesterday.
- No plans for EGD at this point per GI correspondence. Speech evaluation-PEG tube is an option.
- 40 mg IV PPI daily
- GI following, appreciate recs
#AMS, improving
Primary team noted patient lethargy/unresponsiveness return from thoracentesis on 06/19. CT head on 06/19 demonstrated: 'There is a small 8 mm focus of decreased density within the right cerebellar hemisphere, not definitely present on examination of
September 19, 2024. This has close to CSF density, suggestive of an old infarct. As it is new since prior CT, this could possibly represent a subacute infarct. No ICH.' AMS likely in setting of hypercapnia, respiratory failure, combined with recovery
sedation during thoracentesis procedure. Per retread mold operator note on 06/19, mental status improved by the afternoon. Patient was able to follow commands.
Patient alert. Following commands.
Coughing on demand.
Does not like BiPAP-does not want to use it here in the hospital.
Discontinue BiPAP.
#Fecal impaction
CT abdomen on 06/19 demonstrated likely fecal impaction. Constipation may also lead to AMS in elderly hospitalized patients. No bowel regimen at home.
- Molasses/milk enema as needed
#Chronic - mgmt per primary team & cards
- A-fib w c/f SAIRA thrombus; on Eliquis and diltiazem, holding - per cards, may restart diltiazem if HR remains elevated
- CAD s/p stents
- HTN
- DM
- GERD
- HLD
- PAD
- GERD
#Global
- DVT PPx: IV heparin
- Diet: N.p.o.
- Code: DNR
- Dispo: Downgrade to IMU today
Subjective Dataa
Subjective Data
Date of Service:
Date of Service: June 21, 2025
Chief Complaint: Hand Drawer In Follow Up (Bilateral pleural effusion/hypercapnia)
Subjective:
Continues to feel debilitated
No new complaints
Tolerated nocturnal BiPAP
Review of Systems
Cardiopulmonary: Dyspnea, Dyspnea on Exertion, Cough (n) and Sputum Production (n)
GI: Abdominal Pain (n) and Nausea (n)
Objective Data
Data Reviewed
Vital Signs / I&O / Oxygen:
Vital Signs
Temp Pulse Resp BP Pulse Ox
98 F 122 20 101/58 100
06/21/25 11:05 06/21/25 10:17 06/21/25 07:55 06/21/25 10:17 06/21/25 07:55
Intake and Output
06/20/25 06/21/25 06/22/25
06:59 06:59 06:59
Intake Total 76 / 84 180 / 180
Output Total 801 / 801
Balance 76 / 84 -621 / -621
SaO2 100
Nasal Cannula flow liters per 1
minute
Physical Exam
General: Comfortable and Other (elderly, frail appearing)
HEENT: Normocephalic and Anicteric
Cardiovascular: Regular Rhythm, Murmur and Peripheral Edema (none)
Respiratory: Clear, Wheeze (not audible), Non-Labored Respirations and Accessory Resp Muscle Use (none)
GI: Soft, Non Distended and Non Tender
Neurology: Awake and Other (answers Qs but lethargic )
Skin: Warm and Dry
Labs/Micro/Reports
Lab Data
06/21/25 03:55
Laboratory Results
06/20/25 06/20/25 06/21/25
13:57 21:05 03:55
APTT 110.3 H 54.3 H 142.2 H
Microbiology
06/20/25 15:33 Pleural Fluid Body Fluid Culture - Preliminary
No Growth After 18-24 Hours
06/20/25 15:33 Pleural Fluid Gram Stain - Preliminary
06/19/25 10:54 Pleural Fluid Body Fluid Culture - Preliminary
No Growth After 48 Hours
06/19/25 10:54 Pleural Fluid Gram Stain - Preliminary
[2025-06-21] MEDS: ELIQUIS 2.5 MG PO ×2 (13:31→20:19)
--- NOTE | 2025-06-21 13:32 | PTCARENOTE ---
Transfer to chair one person assist. BP 122/87; MAP 98. Pox 94%RA. Heparin off. Eliquis administered. Incontinent of bowel and bladder
--- NOTE | 2025-06-21 13:39 | W.PN.GI.CBS2 ---
Today's Communication / Plan
-
Continue pur�ed diet
Outpatient follow-up with .
Assessment / Plan
-
84yo female with hx afib on Eliquis, CVA, CHF, GERD, HTN, NIDDM, asthma, cardiac stents, severe ,mild AR, mild/mod TR per echo 2023, PAD, anxiety and prior food impaction presents to ER last PM with difficulty swallowing for several days with
even liquids. Per patent and family has been a chronic problem with worsening symptoms. She is also noted with progressive dyspnea and decreased pulse ox prior to admission. In review of chart she had multiple EGD over the years with concern for
esophageal dysmotility disorder, paraesophageal hernia, food impactions, HH, schatzki's ring with dilation, esophagitis, gastritis with last EGD in 11/2024 with with food in lower third of esophagus, mild severe esophagitis with bleeding,
normal stomach. She was last see by in April and recommended nutritional supplement and chemical analytical sampler. Also discussed risks of repeat EGD with dilation and peg tube with concern for last EGD required admission for rapid afib after
procedure. On admission CT noted with diffuse esophageal dilation to EG junction with irregularity at EG junction. moderate to large b/l pleural effusion increased from September. slightly large adrenal gland mass from 2019. sm to moderate HH to
left hemithorax.
-dysphagia with solids and liquids
-hx multiple EGD's with concern for esophageal dysmotility d/o, PEH, food impactions, HH, schatzki's ring with dilation, esophagitis, gastritis
-CT with esophageal dilation
-CT with irregularity to EG junction
-dyspnea with moderate to large b/l effusion
-Afib on Eliquis with hx rapid afib with prior EGD
-hx severe
-wt loss 50 lbs since 2019 and 15 lbs since november
other med problems:
CHF
mild AR, mild/mod TR
CAD prior stent
NIDDM
CVA/TIA
GERD
Asthma
PLAN:
Etiology of dysphagia likely chronic issue with possible esophageal dysmotility-possible achalasias with dilated esophagus vs other
Patient underwent thoracentesis with removal of 1600 cc. After the procedure patient was noted to have change in mental status/lethargy. Mental status back to baseline now.
Currently tolerating pur�ed diet recommended by speech. Advised to add Ensure
I had a long discussion again with patient's daughter at bedside. Discussed about benefits and risk of repeat EGD versus outpatient esophageal motility study versus alternate feeding options ( PEG ).
last EGD 11/2024 with - no obvious evidence of any upper GI neoplasm other than severe esophagitis.
Daughter verbalized understanding and would like to hold off on invasive testing ( EGD etc ) during this admission (she understands increased risks with her mother's significant cardiac comorbidities/mental status) .
She will follow-up with as outpatient. Will discuss about repeat EGD as outpatient
Continue further management as per medical team/cardiology
Goals of care discussion as per medical team
Will sign off. Follow up with as outpatient (patient/patient's daughter will discuss about future workup including repeat EGD with as outpatient)
Total Time Spent with Patient (in minutes): 35
Subjective
Subjective
Date of Service: June 21, 2025
Daughter at bedside. Patient more alert today. Answering question. Tolerating pur�ed diet
Objective
Data Reviewed
Laboratory Data:
Laboratory Results
06/21/25 03:55
Laboratory Results
APTT 142.2 Sec (23.4-35.0) H 06/21/25 03:55
Magnesium 1.3 mg/dl (1.6-2.3) L 06/21/25 03:55
Total Bilirubin 0.6 mg/dl (0.2-1.3) 06/21/25 03:55
AST 18 U/L (14-36) 06/21/25 03:55
ALT 10 U/L (0-35) 06/21/25 03:55
Alkaline Phosphatase 38 U/L (38-126) 06/21/25 03:55
Vital Signs and I&O:
Vital Signs
Temp Pulse Resp BP Pulse Ox
98 F 96 20 122/87 100
06/21/25 11:05 06/21/25 13:31 06/21/25 07:55 06/21/25 13:31 06/21/25 07:55
I&O
06/20/25 06/21/25 06/22/25
06:59 06:59 06:59
Intake Total 76 / 84 180 / 180 240 / 240
Output Total 801 / 801 200 / 200
Balance 76 / 84 -621 / -621 40 / 40
Physical Exam
Physical Exam
GI: Soft, Non Distended and Non Tender
[2025-06-21] MEDS: DUONEB 3 ML INH ×2 (14:18→20:37)
[2025-06-21 14:39] LABS: Blood Urea Nitrogen 17 mg/dl (7-17); Calcium 7.7 mg/dl (8.4-10.2); Carbon Dioxide 34 mmol/L (22-30); Chloride 105 mmol/L (98-107); Estimated Creatinine Clearance 49 ml/min; Glucose 164 mg/dl (70-99); Potassium 4.3 mmol/L (3.5-5.1); Sodium 140 mmol/L (135-145); eGFR > 60.00
[2025-06-21] MEDS: LASIX 40 MG IV (16:47)
[2025-06-21] MEDS: LIPITOR 80 MG PO (17:57)
--- NOTE | 2025-06-21 23:24 | PTCARENOTE ---
Received patient in bed awake and oriented x2. Plan of care for the shift reviewed with the patient. Pt's asking for her . Afib on the monitor with HR between 99-110. Afebrile. Diminished breath sounds. SpO2 at 99% on 2L/o2 nc. Medications
administered in applesauce. Patient cleansed and purewick changed. Bed alarm in use. Call julio is within reach.
[2025-06-22] VITALS (14 sets, daily range): BP systolic 91–127; BP diastolic 49–111; BMI 17.8
[2025-06-22 04:30] LABS: Hematocrit 38.6 % (37.0-47.0); Hemoglobin 12.4 g/dL (12.0-16.0); Mean Corp Hgb Conc. 32.1 g/dL (33.0-37.0); Mean Corpuscular Volume 95.1 fL (81.0-99.0); Nucleated Red Blood Cells % 0 %; Platelet Count 212 10^3/uL (130-400); Red Cell Dist. Width 16.3 % (11.5-14.5)
[2025-06-22 04:57] LABS: ALT (SGPT) 16 U/L (0-35); AST (SGOT) 23 U/L (14-36); Albumin 3.1 g/dl (3.5-5.0); Alkaline Phosphatase 61 U/L (38-126); Blood Urea Nitrogen 17 mg/dl (7-17); Calcium 8.9 mg/dl (8.4-10.2); Chloride 95 mmol/L (98-107); Estimated Creatinine Clearance 49 ml/min; Glucose 100 mg/dl (70-99); Magnesium 2.1 mg/dl (1.6-2.3); Potassium 4.1 mmol/L (3.5-5.1); Sodium 136 mmol/L (135-145); Total Protein 5.8 g/dl (6.3-8.2); eGFR > 60.00
[2025-06-22 05:08] LABS: Carbon Dioxide 41 mmol/L (22-30)
[2025-06-22] MEDS: PULMICORT 0.5 MG INH ×2 (07:27→19:44)
[2025-06-22] MEDS: DUONEB 3 ML INH ×3 (07:27→19:44)
--- NOTE | 2025-06-22 07:59 | PTCARENOTE ---
0700 assumed care. patient in bed, not in distress;
Oriented to self only , baseline confusion
BP via left upper arm 127/111; Afib 96-113 (prior to am dose of cardizem); no edema pulses pedal strong on palpation;
RR 17; 93%/2L(home O2 2L) ; no SOB;
Abdomen soft non tender. Incontinent of bowel ; last BM shift before. No problem swallowing noted. On Puree diet with thin liquid, pills crushed; Requires assistance w feeding
Incontinent of urine. purwick in place to monitor urinal output (hx of CHF; on Lasix IV 40 mg BID)
skin : intact; Q 2 hrs turned.
Lines : left UE : peripheral lines x 3
HoB elevated call julio within reach
[2025-06-22] MEDS: KCL ELIXIR 20 MEQ PO (08:10)
[2025-06-22] MEDS: CARDIZEM 30 MG PO ×4 (08:10→20:54)
[2025-06-22] MEDS: OSCAL 500 + D 500 MG PO ×2 (08:10→20:54)
[2025-06-22] MEDS: THERAGRAN 1 TABLET PO (08:10)
[2025-06-22] MEDS: ELIQUIS 2.5 MG PO ×2 (08:11→20:55)
[2025-06-22] MEDS: PROTONIX IV 40 MG IV (08:11)
[2025-06-22] MEDS: NSS (PRESERVATIVE FREE) 10 ML IV (08:11)
[2025-06-22] MEDS: FOLVITE 1 MG PO (08:11)
--- NOTE | 2025-06-22 08:19 | W.PN.CD ---
Today's Communication / Plan
-
decrease diuresis to iv daily
consideration of goc
Impression / Plan
-
IMPRESSION/PLAN: 84 year old female (known to Dr. Jorge, her primary Dough Brake Machine Operator) with coronary artery disease (RCA '05 & LAD '12), permanent atrial fibrillation, CVA (2018), chronic HFpEF, hypertension, severe aortic stenosis, moderate mitral
stenosis, and dyslipidemia presents with hypercapnic respiratory failure. Cardiology consulted for CHF, AF/RVR, and CT of the chest showed lack of opacification in the left atrial appendage suspicious for thrombus. The patient is a poor historian
and is unable to communicate clearly, partially obtunded still.
Possible SAIRA thrombus:
- Continue Eliquis 2.5 mg p.o. twice daily.
Atrial fibrillation with rapid ventricular response
- rates better controlled
- continue diltiazem now that she is taking p.o.
- [id number]: score 8 (Heart failure, age 75 or more, Diabetes Mellitus, prior Stroke/TIA, Vascular disease, female gender).
- Resuming Eliquis 2.5 mg p.o. twice daily
Acute on chronic HFpEF:
- Significant bilateral pleural effusions.
- BNP elevated at 5850 and bilateral pleural effusions; no edema and minimal rhonchi on examination.
- Can continue Lasix 40 mg IV will make daily now, try to establish dry weight.
- monitor blood pressure (hypotension); patient typically takes Lasix 40 mg PO daily at home.
Esophageal dilatation/dysphagia:
-d/w GI patient doesn't want invasive evaluation, will start refeeding
Pleural effusions:
- Successful right thoracentesis with 1600 cc removed 06/19/2025.
Severe /moderate MS:
- Conservative management for valvular heart disease; patient/family have previously declined TAVR, and she is now a poor candidate at this point.
-echo below
- Reviewed with daughter, and patient, there is no medication for this disease.
Coronary artery disease status-post remote PCI:
- Relatively stable.
- Resume statin when able.
NIDDM:
- Management as per primary team.
Overall prognosis is extremely poor. D/w Patient and daughter there is no fix for her valve disease, now would be a good time to think about GOC, considering hospice.
Subjective:
She is feeling well. Denies chest pain or shortness of breath.
Data:
TTE 06/20/25:
SUMMARY
1. Normal biventricular size and systolic function, with no regional wall motion abnormalities.
2. Extensive calcification of the mitral valve, mitral valve annulus and subvalvular apparatus. Moderate mitral stenosis. Moderate mitral regurgitation (may be underestimated in the setting of acoustic shadowing).
3. Severe aortic stenosis. Mild aortic regurgitation.
4. Moderate to severe tricuspid regurgitation with mild pulmonary hypertension.
5. Compared to the prior echo on 08/27/2024, the degree of tricuspid regurgitation has increased from mild to moderate to moderate to severe.
Physical Exam
Vital Signs/Labs
Vital Signs
Temp Pulse Resp BP Pulse Ox
97.8 F 92 17 127/111 98
06/22/25 07:04 06/22/25 08:10 06/22/25 07:29 06/22/25 08:10 06/22/25 07:29
06/21/25 06/22/25 06/23/25
06:59 06:59 06:59
Actual Weight 98 lb 12.273 oz 97 lb 3.582 oz
06/22/25 04:19
06/22/25 04:19
APTT Cancelled 06/21/25 16:07
Magnesium 2.1 mg/dl (1.6-2.3) 06/22/25 04:19
06/19/25
15:21
Fjq-[id number]-Aseacvdryfs Pept 5850
LAB Results
06/19/25
15:21
Troponin I 0.027
Physical Exam
Constitutional: No acute distress and Comfortable
Cardiovascular: Pedal edema is absent, JVD pressure is normal, Rhythm/rate is irregular and Systolic murmur present (2/6 caudally displace high pictched crescendo murmur no A2)
Respiratory: Respiratory effort normal and Other (squeaks heard at first then cta)
Neuro/Psych: Alert
Data Reviewed
-
Date of Service: June 22, 2025
Medical Decision Making: Review of Case with other Provider (Dr Hay, began GOC discussion, decreasing lasix)
[2025-06-22] MEDS: LASIX 40 MG IV (10:34)
--- NOTE | 2025-06-22 10:37 | W.PN.HOSP.TC ---
Today's Communication/Plan
-
Continue plan as below
Family requested home hospice evaluation
Assessment / Plan
Assessment / Plan
Physical Exam
General: Not in acute distress
HEENT: Normocephalic, Oxygen (Chronic 2 L nasal cannula)
Respiratory: Decreased breath sounds bilaterally
Cardiac: S1/S2; Irregular Rhythm
GI: Soft, Non Tender, Non Distended, Normal Bowel Sounds
Musculoskeletal: No Cyanosis and No Edema
Skin: Warm and Dry
Neuro: Alert and Awake, Responding to questions
Psych: Calm
Assessment/Plan
84-year-old female past medical history of esophageal food impaction prior disimpaction, Schatzki's ring, atrial fibrillation on Eliquis, CAD status post stents chronic HFpEF on 2L oxygen, aortic stenosis, COPD, GERD, hypertension, diabetes,
hyperlipidemia, presenting with trouble swallowing. Had similar symptoms previously in November 2024 when she had food impaction. Also increased shortness of breath. Initial vital signs showed systolic blood pressure 150s to 160s. Heart rate up to 116
bpm. Labs unremarkable. Patient with recurrent esophageal food impaction. IV fluids and glucagon given without improvement. NPO. Hold Eliquis. GI consulted and recommended CT chest.
#Dysphagia concern for esophageal food impaction
#History of esophageal food impaction November 2024 requiring EGD
#History of Schatzki's ring
- Okay to start pureed diet as per speech
- CT chest with diffuse esophageal dilation which extends to the esophagogastric junction with possible neoplasia present -- but GI says that no neoplasia was present on recent EGD earlier this year
- GI consulted, patient is a high risk for any procedure involving anesthesia -- it would therefore be difficult to place a jejunal feeding tube, and she also has a significant hiatal hernia which would make her not a candidate for a
feeding tube -- would be very high aspiration risk
#Profound Lethargy on 06/19/25
- NOW IMPROVED SIGNIFICANTLY
- ABG showed hypercapnia, but not high enough to cause mental status changes
- Spoke with lead supply worker given serious concern regarding airway protection, patient transferred to ICU on 06/20/25 -- SINCE IMPROVED, DOWNGRADED TO IMU LEVEL OF CARE 06/21/25
- Initially was thought to not be a great idea to use positive pressure/BiPAP as the patient has likely esophageal obstruction and food impaction -- increases risk for
aerophagia and aspiration, but may use BiPAP 08/15 if patient becomes lethargic at night
- Patient is on trilogy ventilator at home
- Avoid sedatives
- Per lead supply worker, patient can be monitored in IMU but should remain in IMU/ICU floor
- Avoid any sedatives
- CT head with right cerebellar lesion, possible subacute infarct, also old stroke as well
#Moderate to large bilateral pleural effusions on CT Chest
-Suspected from CHF
-IR consulted, performed RIGHT thoracentesis on 06/19/25, performed thoracentesis, yielding 1600cc of clear gold pleural fluid
-IR performed LEFT thoracentesis on 06/20/25, yielding 1050 cc of clear gold pleural fluid
#Bilateral Pneumonia? On Chest X-Ray 06/20/25
-In the absence of leukocytosis and fever, okay to observe for now without antibiotics
#Right adrenal gland mass
#Small left adrenal gland mass
-Was present on previous imaging
-Outpatient follow-up
#Lack of opacification of the left atrial appendage, suspicious for thrombus on CT Chest imaging
-Appreciate cardio
-Heparin Drip cardiac/ACS protocol started for any possible SAIRA thrombus (if present) and A-Fib
-Now okay to switch to Eliquis 2.5 mg BID, as per cardiology
#Small to moderate hiatal hernia
#Permanent A-fib
- Tachycardic with A-Fib on 06/19/25
- PO Cardizem but short acting equivalent since patient's home Cardizem 120 mg cannot be crushed
- As needed metoprolol 5 mg IV heart rate> 120
- Continue Eliquis
#Type 2 Diabetes Mellitus
-Accu-Cheks with SSI
-IV dextrose as needed blood sugar<70
#Coronary Artery disease status post stenting
-Continue home atorvastatin, diltiazem (short-acting equivalent of the 120 mg at home)
#Acute on Chronic CHF preserved EF
- ProBNP was checked during patient's profound lethargy on 06/19/25, and it was very specific for acute CHF at 5000+
- Reduce IV Lasix 40 mg BID to 40 mg IV daily
- Cardiology onboard
#Severe Aortic Stenosis/Moderate Mitral Stenosis
- Conservative management for valvular heart disease; patient/family have previously declined TAVR in setting of high anesthesia risk, and she is now a poor candidate at this point.
#Chronic hypoxic respiratory failure on chronic 2 L nasal cannula
-Continue albuterol, budesonide
-Patient uses a Trilogy ventilator at home but has not used it for a few days
-Limit beta agonist (e.g. albuterol) as the patient is tachycardic and has a history of atrial fibrillation
-Stop BiPAP as patient does not want to use it -- can restart trilogy in the outpatient setting.
#History of Asthma
#Constipation on Abdominal X-Ray
-Milk of Molasses 500 cc enema given overnight 06/19-06/20 with good bowel movement
#Hypertension
-Continue antihypertensives
#Hyperlipidemia
-Continue statin
#GERD
-IV PPI
#Anxiety
-Continue paroxetine
PAD
CVA
Right cerebellar hemisphere lesion, possible old infarct on CT Head
Left occipital lobe old stroke on CT Head
Failure to Thrive
-Patient has been losing weight more than 20 to 30 pounds in the last year due to multiple medical issues including swallowing dysfunction
-Muscle mass loss
DVT Prophylaxis: Lovenox
Code Status: DNR/DNI (patient confirmed that those are her wishes)
I spoke to and updated patient's daughter on 06/19/25 and 06/20/25 and 06/22/25; I answered all of her questions and concerns to satisfaction. They would like home with home hospice.
Anticipated Discharge: 24 - 48 hours
Subjective/Interval History
-
Date of Service: June 22, 2025
Patient was seen and examined. She was doing well today, denied any new complaints.
Objective Data
-
Labs:
Laboratory Results
06/21/25 06/22/25
16:07 04:19
WBC 6.5
Hgb 12.4
Hct 38.6
Plt Count 212
APTT Cancelled
Sodium 136
Potassium 4.1
Chloride 95 L
Carbon Dioxide 41 H
BUN 17
Creatinine 0.6
Glucose 100 H
Calcium 8.9
Total Bilirubin 0.9
AST 23
ALT 16
Alkaline Phosphatase 61
Vital Signs:
Vital Signs
Temp Pulse Resp BP Pulse Ox
97.8 F 92 17 105/72 98
06/22/25 07:04 06/22/25 10:34 06/22/25 07:29 06/22/25 10:34 06/22/25 07:29
I&O
06/21/25 06/22/25 06/23/25
06:59 06:59 06:59
Intake Total 180 / 180 1210 / 1210
Output Total 801 / 801 1000 / 1000
Balance -621 / -621 210 / 210
[2025-06-22] MEDS: LASIX IV (13:52)
[2025-06-22] MEDS: LIPITOR 80 MG PO (17:30)
--- NOTE | 2025-06-22 18:33 | PTCARENOTE ---
Patient in bed. OOB chair for about 4 hours. Oriented to self only (patient's baseline);
Afib 113 (Cardizem pO adm per order ) no edema
Abdomen soft, Incontinent of bowel; on Puree diet With Thin liquid; appetite fair
Incontinent of bladder
pt in bed. call julio within reach
--- NOTE | 2025-06-22 21:54 | PTCARENOTE ---
Patient aaox1 to self, affect pleasant. Patient denies pain, no observable s/s of pain noted as well. Patient swallowed medications crushed in applesauce without difficulty. Afib on the monitor, no edema noted, weak pp b/l. Lung sounds diminished
throughout, patient remains on 2L o2 via n/c with pox 98-99%. Purewick in place, draining clear loni urine to suction. Repositioned for comfort and pressure relief. Call julio within reach, will continue to monitor patient closely.
[2025-06-23] VITALS: BP 126/70
[2025-06-23 01:55] VITALS: BMI 17.9
[2025-06-23 02:00] VITALS: BP 117/100
[2025-06-23 04:00] VITALS: BP 121/86
[2025-06-23 04:30] LABS: Blood Urea Nitrogen 18 mg/dl (7-17); Calcium 8.9 mg/dl (8.4-10.2); Chloride 92 mmol/L (98-107); Estimated Creatinine Clearance 49 ml/min; Glucose 103 mg/dl (70-99); Magnesium 2.0 mg/dl (1.6-2.3); Potassium 4.5 mmol/L (3.5-5.1); Sodium 135 mmol/L (135-145); eGFR > 60.00
[2025-06-23 04:49] LABS: Carbon Dioxide 42 mmol/L (22-30)
[2025-06-23 06:00] VITALS: BP 102/67
[2025-06-23] MEDS: DUONEB 3 ML INH (07:14)
[2025-06-23] MEDS: PULMICORT 0.5 MG INH (07:14)
--- NOTE | 2025-06-23 07:58 | W.PN.CD ---
Today's Communication / Plan
-
Switch back to PO Lasix at home dose
Continue diltiazem and Eliquis
Agree with Hospice eval
Cardiology will sign-off. Please call with additional questions or concerns.
Impression / Plan
-
IMPRESSION/PLAN: 84 year old female (known to Dr. Jorge, her primary Bullet Maker) with coronary artery disease (RCA '05 & LAD '12), permanent atrial fibrillation, CVA (2018), chronic HFpEF, hypertension, severe aortic stenosis, moderate mitral
stenosis, and dyslipidemia presents with hypercapnic respiratory failure. Cardiology consulted for CHF, AF/RVR, and CT of the chest showed lack of opacification in the left atrial appendage suspicious for thrombus.
Possible SAIRA thrombus:
- Continue Eliquis 2.5 mg p.o. twice daily.
Atrial fibrillation with rapid ventricular response
- rates better controlled
- continue diltiazem now that she is taking p.o.; switch to long-acting
- [id number]: score 8 (Heart failure, age 75 or more, Diabetes Mellitus, prior Stroke/TIA, Vascular disease, female gender).
- Resuming Eliquis 2.5 mg p.o. twice daily
Acute on chronic HFpEF:
- Significant bilateral pleural effusions.
- BNP elevated at 5850 and bilateral pleural effusions; no edema and minimal rhonchi on examination.
- She examines euvolemic and weight is lowest documented at this facility (97 lb)
- Resume PO Lasix 40mg daily
Esophageal dilatation/dysphagia:
-d/w GI patient doesn't want invasive evaluation, will start refeeding
Pleural effusions:
- Successful right thoracentesis with 1600 cc removed 06/19/2025.
Severe /moderate MS:
- Conservative management for valvular heart disease; patient/family have previously declined TAVR, and she is now a poor candidate at this point.
- echo below
- Reviewed with daughter, and patient, there is no medication for this disease.
Coronary artery disease status-post remote PCI:
- Relatively stable.
- Resume statin when able.
NIDDM:
- Management as per primary team.
Overall prognosis is extremely poor. D/w Patient and daughter there is no fix for her valve disease, now would be a good time to think about GOC, considering hospice.
Subjective:
She is feeling well. Denies chest pain or shortness of breath.
Data:
TTE 06/20/25:
SUMMARY
1. Normal biventricular size and systolic function, with no regional wall motion abnormalities.
2. Extensive calcification of the mitral valve, mitral valve annulus and subvalvular apparatus. Moderate mitral stenosis. Moderate mitral regurgitation (may be underestimated in the setting of acoustic shadowing).
3. Severe aortic stenosis. Mild aortic regurgitation.
4. Moderate to severe tricuspid regurgitation with mild pulmonary hypertension.
5. Compared to the prior echo on 08/27/2024, the degree of tricuspid regurgitation has increased from mild to moderate to moderate to severe.
Physical Exam
Vital Signs/Labs
Vital Signs
Temp Pulse Resp BP Pulse Ox
97.6 F 102 18 102/67 95
06/23/25 07:13 06/23/25 07:15 06/23/25 07:15 06/23/25 06:00 06/23/25 07:15
06/22/25 06/23/25 06/24/25
06:59 06:59 06:59
Actual Weight 97 lb 3.582 oz 97 lb 14.164 oz
06/23/25 06:00
06/23/25 03:24
APTT Cancelled 06/21/25 16:07
Magnesium Cancelled 06/23/25 06:00
06/19/25
15:21
Vuj-N-Qyjpldsiukm Pept 5850
Physical Exam
Constitutional: No acute distress and Comfortable
Cardiovascular: Pedal edema is absent, Rhythm/rate is irregular and Murmur/rub/gallop absent
Respiratory: Respiratory effort normal and Lungs clear to auscul.
Data Reviewed
-
Date of Service: June 23, 2025
Medical Decision Making: Reviewed Test Results, Test Interpretation and Review of Case with other Provider
EKG: Tracing Personally Visualized and interpreted
Echo: Report Reviewed by me
X-Ray/CT/US/MRI/NUC/PET: Report Reviewed by me
Labs: Labs Reviewed by me
[2025-06-23 08:00] VITALS: BP 114/66
[2025-06-23] MEDS: CARDIZEM PO (08:21)
[2025-06-23] MEDS: PAXIL 20 MG PO (08:34)
[2025-06-23] MEDS: ELIQUIS 2.5 MG PO (08:34)
[2025-06-23] MEDS: OSCAL 500 + D 500 MG PO (08:34)
[2025-06-23] MEDS: CARDIZEM CD 120 MG PO (08:34)
[2025-06-23] MEDS: KCL ELIXIR 20 MEQ PO (08:34)
[2025-06-23] MEDS: FOLVITE 1 MG PO (08:34)
[2025-06-23] MEDS: LASIX 40 MG PO (08:34)
[2025-06-23] MEDS: NSS (PRESERVATIVE FREE) 10 ML IV (08:34)
[2025-06-23] MEDS: THERAGRAN 1 TABLET PO (08:34)
[2025-06-23] MEDS: PROTONIX IV 40 MG IV (08:35)
--- NOTE | 2025-06-23 08:52 | W.DCSUMMARY ---
Discharge Summary
Discharge Data
Date of Admission: 06/18/25
Date of Discharge: 06/23/25
-
Pending Results: No
Hospital Course
Primary diagnosis:
Dysphagia
Recurrent food impactions
Schatzki's ring with dilatation
Esophagitis
Hiatus hernia
Acute on chronic CHF with preserved EF
Permanent atrial fibrillation with RVR
Transudative pleural effusion status post bilateral thoracentesis
Secondary diagnosis:
COPD on Trelegy
Chronic hypoxic respiratory failure on home O2
Possible left atrial thrombus
Severe aortic stenosis
Moderate mitral stenosis
Coronary artery disease status post remote PCI
Diabetes mellitus
Hospital course:
Patient with history of dysphagia, recurrent food impaction, presented with decreased oral intake and chronic worsening dysphagia. CT done in the ER showed diffuse esophageal dilatation and irregularity at EG junction. Multiple EGDs over the years
raise the concern for esophageal dysmotility disorder, paraesophageal hernia, hiatus hernia, Schatzki's ring with dilatation, esophagitis, gastritis with the last EGD in November 2024 with the food in the lower third esophagus, severe esophagitis with
bleeding and normal stomach and no mass at EG junction.
On admission she was also dyspneic with bilateral pleural effusion requiring bilateral thoracentesis. She was also in acute on chronic heart failure. She has significant valvular heart disease as above. She also was in rapid A-fib. She was seen
by cardiopulmonary and her respiratory situation was optimized with thoracentesis, increased dose of Lasix, increased dose of Cardizem. She had brief confusion which resolved.
GI were involved and discussed with the risk of repeat EGD with dilatation and PEG tube with the last EGD requiring admission for A-fib after the procedure.
Daughter verbalized understanding and she wants to hold off on invasive testing including EGD, PEG tube. She will follow-up with GI as an outpatient.
She was tolerating pur�ed diet and Ensure was recommended.
For COPD she was not not in any flare. She was back on her home O2. She uses Trelegy at home.
From heart failure standpoint she improved-diuretics was switched to oral Lasix to 40 mg daily which is lower dose than before. Decrease the dose of potassium supplements as well as the dose of Lasix was decreased. She is back on Cardizem at her
home dose. Back on anticoagulation.
She was seen by PT OT who recommended home care and she was discharged home. She was a DNR during the stay here.
Since she was lying comfortably in her bed on home O2. No respiratory distress. Complains of low back pain and she normally takes Tylenol at home. Denies any shortness of breath, chest pain, nausea or vomiting. No abdominal pain.
alert oriented to place and person.
Heart sound S1 plus S2 heard with a systolic murmur and heart rate 102 A-fib
Chest without any wheeze or crackles.
Abdomen soft.
No lower extremity edema.
GI, pulmonary, cardiology signed off.
PT OT re- noted recommend home health.
Medically stable for discharge home. Discussed the plan with the daughter at bedside today..
Portions of this chart may have been created with voice recognition software. Occasional wrong word or 'sound alike' substitutions may have occurred due to the inherent limitations of voice recognition software.
Consult on board
GI-Yomi Gonsalez
Pulmonary-Carlos Gallagher
Cardiology-Hector Baron
Consultants on board:
Discharge Plan
-
Patient Disposition: Home with Home Care
Discharge Diagnosis/Procedures: Dysphagia; recurrent food impaction; acute on chronic heart failure with preserved EF; bilateral pleural effusions secondary to CHF s/p bilateral thoracentesis; atrial fibrillation; aortic stenosis;
Diet: Other diet
Additional Diets: Pur�ed
Activity: As tolerated
Driving Restrictions: No driving
Bathing Restrictions: None
Other Services: VN
Specialty Instructions: Weigh Daily- Call MD for wt gain/loss 3 lbs overnight/5 lbs in 1 week
Referrals:
Dawood Rocha MD [Active, Pulmonary Medicine] - in three to four weeks
Ivan Anton DO [Family Provider, Family Practice] - in less than 1 week
Prescriptions:
New
furosemide 40 mg Tablet
40 mg PO DAILY Qty: 30 0RF
Rx Instructions:
Dose decreased on this admission
potassium chloride 10 mEq capsule, extended release
10 meq PO DAILY Qty: 30 0RF
Rx Instructions:
Dose decreased on this admission
pantoprazole [Protonix] 40 mg tablet,delayed release (DR/EC)
40 mg PO DAILY Qty: 30 0RF
Rx Instructions:
Dose increased on this admission
Continued
paroxetine HCl 20 MG tablet
20 mg PO DAILY
calcium carbonate-vitamin D3 [Oyster Shell Calcium-Vit D3] 500 MG tablet
1 tab PO BID
ipratropium-albuterol 3 ML solution for nebulization
3 ml inhalation R TID
Refresh Classic (PF) 10 DROPS dropperette
1 drops BOTH EYES DAILYPRN PRN (Reason: dry eyes/irritation)
folic acid 1 MG tablet
1 mg PO DAILY 0RF
budesonide [Pulmicort] 0.5 MG/2 ML suspension for nebulization
0.5 mg inhalation R BID
atorvastatin [Lipitor] 80 mg Tablet
80 mg PO QPM
therapeutic multivitamin Tablet
1 tab PO DAILY
diltiazem HCl 120 mg Capsule,Extended Release 24 Hr
120 mg PO DAILY
Eliquis 2.5 mg Tablet
2.5 mg PO BID
Changed
acetaminophen [Tylenol Extra Strength] 500 MG tablet
500 mg PO Q6HPRN PRN (Reason: mild pain) Qty: 0 0RF
Discontinued
furosemide 80 MG tablet
80 mg PO DAILY Qty: 30 0RF
albuterol sulfate 2.5 mg /3 mL (0.083 %) Solution For Nebulization
2.5 mg INHALATION R BID
pantoprazole [Protonix] 20 mg Tablet,Delayed Release (Dr/Ec)
20 mg PO DAILY
potassium chloride 20 mEq Tablet Extended Release
20 meq PO DAILY
Discharge Orders:
Discharge Patient (As Directed); Ordered 06/23/25
Ordered By: Clay Durbin
Discharge Date and Time
Print Language: KAZAKH
[2025-06-23] MEDS: TYLENOL 650 MG PO (09:10)
--- NOTE | 2025-06-23 09:38 | W.PN.UPDATE ---
Update Note
Progress Note Update
DW daughter about goals of care - she is looking for home palliative care than hospice. CM consulted to set it up.
--- NOTE | 2025-06-23 09:51 | PTCARENOTE ---
pt wakes to name. oriented to self. states pain in nguyen tylenol given and pt repositioned. daughter at bedside reviewed plan of care. pt takes pills with applesauce.
[2025-06-23 10:00] VITALS: BP 119/82
--- NOTE | 2025-06-23 10:16 | CM ---
CM reviewed pt with attending- planned for dc today
Bedside meeting with pt and dtr/Ariella
Plan for home today under dtr's continued care
Info regarding palliative and hospice provided including brochure
Dtr declined referrals at this time including VN
She plans to call palliative care to gather info as she considers GOC
IMM verbally reviewed- copy provided bedside
Dtr will transport home, has transport chair and portable O2 device
Discharge Disposition- home, no needs, family transport
--- NOTE | 2025-06-23 12:01 | PN.CDI ---
CDI
- -
CDI:
Physician Documentation Request
Admit Date: 06/18/25 21:54
Dear Doctor Ramakrishna,
Please review the following and provide your response in the progress notes.
Clinical Indicators:
- Service Order Dispatcher Chief notes indicate Severe protein calorie malnutrition
- Unintentional weight loss > 10% in 6 months
- Severe subcutaneous loss over orbital
- Moderate muscle loss over temporal
- Severe muscle loss over clavicle
Based on the above information and your assessment, which of the following most accurately represents the patient's nutritional status?
Severe protein calorie malnutrition
Other (please specify)
Brinklow Criteria ([facility] Hospitalist 2017)
2 or more criteria must be present for either
non severe or severe malnutrition
Note that the criteria differs related to the
presence of an acute or chronic illness
Acute Illness Chronic Illness
Energy Intake Non Severe: <75% for >7 days Non Severe: <75% for >1 month
Severe: <50% for >5 days Severe: <75% for >1 month
Weight Loss Non Severe: 1-2% over 1 week Non Severe: 5% over 1 month
5% over 1 month 7.5% over 3 months
7.5% over 3 months 10% over 6 months
1 year N/A 20% over 1 year
Severe: >2% over 1 week Severe: >5% over 1 month
>5% over 1 month >7.5% over 3 months
>7.5% over 3 months >10% over 6 months
1 year N/A >20% over 1 year
Body Fat Non Severe: Mild Decrease Non Severe: Mild Loss
Severe: Moderate Decrease Severe: Severe Loss
Muscle Mass Non Severe: Mild Decrease Non Severe: Mild Loss
Severe: Moderate Decrease Severe: Severe Loss
Fluid Accumulation Non Severe: Mild Accumulation Non Severe: Mild Accumulation
Severe: Moderate to severe Severe: Moderate to severe
accumulation accumulation
Reduced Drilling Fluids Specialist Strength Non Severe: N/A Non Severe: N/A
Severe: Measurably reduced Severe: Measurably reduced
Additional criteria that can be used to Determine if Mild or Moderate Malnutrition ([employer] Manual 2018)
Mild Moderate Severe
Albumin gm/dl <3.0 gm/dl <2.5 gm/dl <2.0 gm/dl
Pre Albumin mg/dl <15 gm/dl <10 mg/dl <5.0 mg/dl
BMI <18.5 <17 <16
Use of terms such as suspected, likely, concern for, or probable (associated with a specific diagnosis that is being evaluated, monitored, or treated as if it exists) are acceptable and can be coded in the inpatient setting, when documented at the
time of discharge.
Thank you,
Ingrid Lino RN
CDI Specialist
Please use your independent medical judgment in providing your response.
--- NOTE | 2025-07-07 17:53 | W.PN.UPDATE ---
Update Note
Progress Note Update
Severe protein calorie malnutrition
- Unintentional weight loss > 10% in 6 months
- Severe subcutaneous loss over orbital
- Moderate muscle loss over temporal
- Severe muscle loss over clavicle
== END 2025-06-23 11:02 | disposition home or self-care (01) | DRG 186 ==
LOC: ICU 21:54
PROVIDERS: Clinical Nurse Specialist Family Health; Emergency Medicine; Hospitalist; Radiology Vascular & Interventional Radiology; ADMITTING PHYSICIAN Hospitalist; ATTENDING PHYSICIAN Internal Medicine; CONSULT PHYSICIAN Internal Medicine; CONSULT PHYSICIAN Internal Medicine Critical Care Medicine; EMERGENCY PHYSICIAN Student in an Organized Health Care Education/Training Program; FAMILY PHYSICIAN Student in an Organized Health Care Education/Training Program; OTHER PHYSICIAN Internal Medicine
PROC: 0W993ZZ Drainage of Right Pleural Cavity, Percutaneous Approach (ICD-10-PCS; 2025-06-19)
PROC: 0W9B3ZZ Drainage of Left Pleural Cavity, Percutaneous Approach (ICD-10-PCS; 2025-06-20)
DX: J90 Pleural effusion, not elsewhere classified (principal); E43 Unspecified severe protein-calorie malnutrition; G92.8 Other toxic encephalopathy; I50.33 Acute on chronic diastolic (congestive) heart failure; J96.22 Acute and chronic respiratory failure with hypercapnia; J96.21 Acute and chronic respiratory failure with hypoxia; I48.21 Permanent atrial fibrillation; J98.11 Atelectasis; Z68.1 Body mass index [BMI] 19.9 or less, adult; I11.0 Hypertensive heart disease with heart failure; K44.9 Diaphragmatic hernia without obstruction or gangrene; K21.00 Gastro-esophageal reflux disease with esophagitis, without bleeding; K22.2 Esophageal obstruction; J44.89 Other specified chronic obstructive pulmonary disease; Z99.81 Dependence on supplemental oxygen; I25.10 Atherosclerotic heart disease of native coronary artery without angina pectoris; E11.51 Type 2 diabetes mellitus with diabetic peripheral angiopathy without gangrene; K29.70 Gastritis, unspecified, without bleeding; Z66 Do not resuscitate; Z86.73 Personal history of transient ischemic attack (TIA), and cerebral infarction without residual deficits; F41.9 Anxiety disorder, unspecified; Z96.651 Presence of right artificial knee joint; Z95.5 Presence of coronary angioplasty implant and graft; Z87.891 Personal history of nicotine dependence; Z88.2 Allergy status to sulfonamides; Z79.899 Other long term (current) drug therapy; Z79.01 Long term (current) use of anticoagulants; Z79.51 Long term (current) use of inhaled steroids; Z88.3 Allergy status to other anti-infective agents; E78.00 Pure hypercholesterolemia, unspecified; I51.3 Intracardiac thrombosis, not elsewhere classified
CPT/HCPCS: 32555; 36600; 70450; 71045; 71260; 74018; 80048; 80053; 82140; 82150; 82805; 82945; 82962; 83036; 83615; 83735; 83880; 83986; 84155; 84157; 84484; 85025; 85730; 87015; 87070; 87205; 88112; 88305; 89051; 92610; 93005; 93306; 94640; 94660; 96361; 96374; 97116; 97163; 97167; 99285; J1610; Q9967

== ENCOUNTER → 2025-07-15 13:32 | Outpatient (REF) | payer MEDICARE, OTHER, SELFPAY ==
[2025-07-15 15:17] LABS: Blood Urea Nitrogen 16 mg/dl (7-17); Calcium 8.8 mg/dl (8.4-10.2); Carbon Dioxide 38 mmol/L (22-30); Chloride 92 mmol/L (98-107); Glucose 120 mg/dl (70-99); Potassium 3.9 mmol/L (3.5-5.1); Sodium 133 mmol/L (135-145); eGFR > 60.00
== END ==
LOC: REG 13:32
PROVIDERS: ATTENDING PHYSICIAN Student in an Organized Health Care Education/Training Program; FAMILY PHYSICIAN Student in an Organized Health Care Education/Training Program
DX: I25.10 Atherosclerotic heart disease of native coronary artery without angina pectoris (principal)
CPT/HCPCS: 36415; 80048

== ENCOUNTER → 2025-07-25 13:44 | Outpatient (REF) | payer MEDICARE, OTHER, SELFPAY ==
[2025-07-25 15:33] LABS: Blood Urea Nitrogen 13 mg/dl (7-17); Calcium 9.1 mg/dl (8.4-10.2); Chloride 94 mmol/L (98-107); Glucose 91 mg/dl (70-99); Potassium 5.0 mmol/L (3.5-5.1); Sodium 134 mmol/L (135-145); eGFR > 60.00
[2025-07-25 17:00] LABS: Carbon Dioxide 40 mmol/L (22-30)
== END ==
LOC: REG 13:44
PROVIDERS: ATTENDING PHYSICIAN Student in an Organized Health Care Education/Training Program; FAMILY PHYSICIAN Student in an Organized Health Care Education/Training Program
DX: I48.0 Paroxysmal atrial fibrillation (principal)
CPT/HCPCS: 36415; 80048

== ENCOUNTER → 2025-08-11 15:15 | Outpatient (REF) | payer MEDICARE, OTHER, SELFPAY | LOC: REG 15:15 | PROVIDERS: ATTENDING PHYSICIAN Nurse Practitioner Adult Health | DX: J96.12 Chronic respiratory failure with hypercapnia (principal); R06.00 Dyspnea, unspecified | CPT/HCPCS: 71046 ==